=== PATIENT | female | born 1965 | race Caucasian/White ===

== ENCOUNTER 2022-08-29 09:49 | Outpatient (OUT) | payer OTHER, SELFPAY ==
--- NOTE | 2022-08-29 10:23 | XR_ITS ---
The [address] [address] Patient Name: MAHESH BAXTER MRN: [id number] date: 1965 Sex: F Assigned Patient Location: [facility] Current Patient Location: [facility] Accession/Order Number: [id number] Exam Date: 08/29/2022 10:26 Report Date: 08/29/2022 10:53 At the request of: NON-STAFF PHYSICIAN Procedure: XR chest 2V EXAM: XR chest 2V HISTORY: Productive cough R05.8 COMPARISON: None. TECHNIQUE: PA and lateral views of the chest. FINDINGS: The cardiomediastinal silhouette is normal. No focal consolidation is identified. There is no pneumothorax. No pleural effusion is noted. The osseous structures are intact. IMPRESSION: No acute cardiopulmonary process. Electronically authenticated by: FATOUMATA MURRAY Date: 08/29/2022 10:53
== END 2022-08-29 09:50 ==
LOC: RAD 09:53
DX: R05.8 Other specified cough (principal)
CPT/HCPCS: 71046

== ENCOUNTER 2023-04-20 14:02 | Outpatient (OUT) | payer OTHER, SELFPAY ==
--- NOTE | 2023-04-20 | XR_ITS ---
[address] [address] Patient Name: MAHESH BAXTER MRN: [id number] date: 1965 Sex: F Assigned Patient Location: [facility] Current Patient Location: [facility] Accession/Order Number: [id number] Exam Date: 04/20/2023 14:26 Report Date: 04/20/2023 15:04 At the request of: NICOLE MARIA Procedure: XR foot ALIVIA min 3V EXAMINATION: XR foot ALIVIA min 3V HISTORY: BILATERAL FOOT PAIN COMPARISON: 03/08/2022 left foot FINDINGS: RIGHT FINDINGS: BONES: No acute fracture or dislocation. Moderate enthesopathic spurring of the calcaneus most significant along the plantar insertion. SOFT TISSUES: Negative. No visible soft tissue swelling. OTHER: Negative. LEFT FINDINGS: BONES: No acute fracture or dislocation. Moderate hallux valgus. Moderate degenerative changes of the first metatarsal-phalangeal joint. Moderate enthesopathic spurring of the calcaneus most significant at the plantar insertion. Persistent flexion of the second toe with overlap of the first and second toes SOFT TISSUES: Negative. No visible soft tissue swelling. OTHER: Negative. XR/XR foot ALIVIA min 3V IMPRESSION: RIGHT CONCLUSION: Enthesopathic spurring of the calcaneus LEFT CONCLUSION: Moderate hallux valgus, first metatarsal-phalangeal joint osteoarthritis Electronically authenticated by: COLETTE HUNT Date: 04/20/2023 15:04
--- OUTSIDE RECORDS SUMMARY | 2023-04-20 14:10 | XMS_ITS | CCD ---
Author Name Unknown Address [address] [place] [address] Organization [facility] Care Team Providers Care Play Back Operator Name Role Phone Randall Kerr Primary Care Provider Jayesh Agrawal Attending Provider Randall Kerr Unavailable DO Randall Kerr Primary Care Provider DO Randall Kerr Attending Provider MD Johnny Vera Referring Provider [phone] DR MAINE KERR Primary Care Unavailable ANNA GREENBERG Admitting Unavailable ANNA GREENBERG Attending Unavailable DR COLETTE HUNT V Consulting Unavailable ANNA GREENBERG Consulting Unavailable Randall Kerr Admitting Unavailable Randall Kerr Attending Unavailable Ana, Randall Primary Care Unavailable Riccos, Randall Admitting Unavailable RiccosRandall Attending Unavailable Riccos, Randall Primary Care Unavailable Kuns, Randall Admitting Unavailable Randall Kerr Attending Unavailable Johnny Vera Referring Unavailable Riccos Randall Primary Care Unavailable RiccosRandall Attending Unavailable Riccos, Randall Primary Care Unavailable Kuns, Randall Admitting Unavailable KunsRandall Attending Unavailable Riccos, Randall Primary Care Unavailable Kuns, Randall Admitting Unavailable Jigna Sparks Unavailable Unavailable Unavailable Unavailable Allergies Allergy Classification Reported Allergen(s) Allergy Type Date of Onset Reaction(s) Facility (15 sources) Amitriptyline Drug Allergy GROGGY, Grogginess [facility] Other (15 sources) Penicillin Drug Allergy Unknown [facility] Other (1 source) Penicillin Drug Allergy 10-05-202 0 [facility] Repository Medications Current Medications Medication Drug Class(es) Dates Sig (Normalized) Sig (Original) azithromycin 250 mg oral tablet (7 sources) Macrolide Antimicrobial Start: 06-30-2022 Azithromycin 250 MG 2 tablet on the first day, then 1 tablet daily for 4 days Orally Once a day for 5 day(s) Jun, Active Start: 10-14-2021 Zithromax Z-Pa k 250 MG as directed Orally as directed Oct, Active benzonatate 100 mg oral capsule (6 sources) Non-narcotic Antitussive Start: 06-30-2022 take 1 capsule by mouth three times daily as needed Tessalon Perles 100 MG 1 capsule as needed Orally Three times a day for 7 days Jun, Active Estrogens, Esterified ([facility]) / methylTESTOSTERone (15 sources) Androgen Estratest 1.25-2.5 MG 1 tablet with food Orally Daily for Three Weeks, 1 Week off for 30 day(s) Active fluticasone propionate 0.05 mg/actuat metered dose nasal spray (15 sources) Corticosteroid take 1 spray(s) nasal route once daily Fluticasone Propionate 50 MCG/ACT 1 spray in each nostril Nasally Once a day Active 30 actuat fluticasone furoate 0.1 mg/actuat / umeclidinium 0.0625 mg/actuat / vilanterol 0.025 mg/actuat dry powder inhaler (1 source) Anticholinergic, Corticosteroid, beta2-Adrenergic Agonist Start: 08-30-2022 take 1 puff(s) by inhalation once daily Trelegy Ellipta 100-62.5-25 MCG/ACT 1 puff Inhalation Once a day samples Aug, Active Hair Nourishing Supplement - (9 sources) Hair Nourishing Supplement - as directed Orally Active ibuprofen 200 mg oral tablet (12 sources) Nonsteroidal Anti-inflammatory Drug take 1 tablet by mouth three times daily at mealtime as needed Ibuprofen 200 MG 1 tablet with food or milk as needed Orally Three times a day Active levoFLOXacin 500 mg oral tablet (6 sources) Quinolone Antimicrobial Start: 08-09-2022 take 1 tablet by mouth every twenty-four hours levoFLOXacin 500 MG 1 tablet Orally Once a day for 10 days July, Active Multivitamin preparation (15 sources) Multivitamin Orally Active phentermine hydrochloride 37.5 mg oral tablet (5 sources) Sympathomimetic Amine Anorectic Start: 01-13-2022 take 1 tablet by mouth every twenty-four hours Adipex-P 37.5 MG 1 tablet Orally Once a day Jan, Active Start: 12-15-2021 take 1 tablet by escobar th every twenty-four hours Adipex-P 37.5 MG 1 tablet Orally Once a day Dec, Active Start: 11-18-2021 take 1 tablet by escobar th every twenty-four hours Adipex-P 37.5 MG 1 tablet Orally Once a day Nov, Active 24 hr phentermine 11.25 mg / topiramate 69 mg extended release oral capsule (2 sources) Sympathomimetic Amine Anorectic Start: 02-23-2022 take 1 capsule by mouth every twenty-four hours Qsymia 11.25-69 MG 1 capsule Orally Once a day for 30 days Feb, Active predniSONE 20 mg oral tablet (7 sources) Start: 06-30-2022 take 1 tablet by mouth every twelve hours prednisone 20 MG 1 tablet Orally BID for 5 days Jun, Active Start: 10-14-2021 predniSONE 20 MG 1 tablet Orally TID for 3 days, BID for 3 days, then QD for 3 days Oct, Active turmeric extract 500 mg oral capsule (1 source) Turmeric 500 MG as directed Orally Active Completed/Discontinued Medications Medication Drug Class(es) Dates Sig (Normalized) Sig (Original) triamcinolone acetonide 40 mg/ml injectable suspension (19 sources) Corticosteroid Start: 2021 Kenalog-40 Aug, 60 mg Problems Active Problems Problem Classification Problem Date Documented Date Episodic/Chronic Administrative/social admission (4 sources) Dietary management surveillance; Translations: [Dietary counseling and surveillance] Episodic Coronary atherosclerosis and other heart disease (1 source) Coronary atherosclerosis and other heart disease; Translations: [E78.5 - Hyperlipidemia, unspecified] Onset: 2 Disorders of lipid metabolism (17 sources) Hyperlipidemia; Translations: [Hyperlipidemia, unspecified] Onset: 2 Resolved: 2 Chronic E Codes: Overexertion (1 source) Slipping, tripping and stumbling without falling, unspecified, initial encounter; Translations: [SLIP TRIP STUMBL NO FALL UNS INIT] Onset: 2 Episodic Esophageal disorders (20 sources) Gastroesophageal reflux disease; Translations: [Gastro-esophageal reflux disease without esophagitis] Onset: 2 Resolved: 2 Chronic Esophageal disorders (1 source) Esophageal disorders; Translations: [Gastro-esophageal reflux disease without esophagitis] Onset: 2 Fracture of lower limb (1 source) Unspecified fracture of left calcaneus, initial encounter for closed fracture; Translations: [UNS FX LT CALCAN INITIAL CLOSED FX] Onset: 2 Episodic Genitourinary congenital anomalies (13 sources) Cyst of kidney; 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, unspecified] Onset: 2 Resolved: 2 Chronic Headache; including migraine (13 sources) Cluster headache; Translations: [Cluster headache syndrome, unspecified, not intractable] Onset: 2 Resolved: 2 Chronic Immunizations and screening for infectious disease (1 source) Contact with and (suspected) exposure to other viral communicable diseases Episodic Osteoarthritis (20 sources) Degenerative joint disease of thumb; Translations: [Primary osteoarthritis, unspecified hand] Chronic Other connective tissue disease (3 sources) Pain in left foot; Translations: [PAIN IN LEFT FOOT] Onset: 2 Episodic Other diseases of kidney and ureters (4 sources) Impaired renal function disorder; Translations: [Disorder of kidney and ureter, unspecified] Episodic Other hematologic conditions (4 sources) Relative polycythemia; 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] Episodic Other liver diseases (12 sources) Liver cyst; Translations: [Other specified diseases of liver] Chronic Other liver diseases (1 source) Other specified diseases of liver Onset: 2 Resolved: 2 Chronic Other lower respiratory disease (1 source) Persistent cough; Translations: [Persistent cough] Episodic Other non-traumatic joint disorders (4 sources) Arthralgia of the upper arm; Translations: [Pain in left elbow] Episodic Other nutritional; endocrine; and metabolic disorders (15 sources) Obesity; Translations: [Obesity, unspecified] Chronic Other nutritional; endocrine; and metabolic disorders (4 sources) Body mass index 30+ - obesity; Translations: [Body mass index (BMI) 30.0-30.9, adult] Chronic Other nutritional; endocrine; and metabolic disorders (1 source) Body mass index (BMI) 30.0-30.9, adult Onset: 2 Resolved: 2 Chronic Other nutritional; endocrine; and metabolic disorders (4 sources) Obesity, unspecified Onset: 2 Resolved: 2 Chronic Other nutritional; endocrine; and metabolic disorders (11 sources) Overweight in adulthood with body mass index of 25 or more but less than 30; Translations: [Body mass index (BMI) 28.0-28.9, adult] Episodic Other nutritional; endocrine; and metabolic disorders (1 source) Body mass index (BMI) 28.0-28.9, adult Episodic Other nutritional; endocrine; and metabolic disorders (1 source) Body mass index (BMI) 27.0-27.9, adult Episodic Other screening for suspected conditions (not mental disorders or infectious disease) (20 sources) Electrocardiogram abnormal; Translations: [Abnormal electrocardiogram [ECG] [EKG]] Onset: 2 Resolved: 2 Episodic Other upper respiratory disease (4 sources) Seasonal allergy; Translations: [Other seasonal allergic rhinitis] Chronic Other upper respiratory disease (2 sources) Other seasonal allergic rhinitis Chronic Other upper respiratory infections (1 source) Acute maxillary sinusitis, unspecified Episodic Unclassified (1 source) R06.02 - Shortness of breath; Translations: [R06.02 - Shortness of breath] Onset: 2 Unclassified (1 source) R05.3 - Chronic cough; Translations: [R05.3 - Chronic cough] Onset: 2 Unclassified (1 source) R05.3 - Chronic cough; Translations: [R05.3 - Chronic cough] Onset: 2 Past or Other Problems Problem Classification Problem Date Documented Da te Episodic/Chronic Cardiac dysrhythmias (3 sources) Palpitations; Translations: [Palpitations] Onset: 09-23-2021 Resolved: 11-18-2021 Episodic Nonspecific chest pain (4 sources) Other chest pain; Translations: [Chest pain, unspecified] Onset: 06-27-2022 Resolved: 09-23-2021 Episodic Other lower respiratory disease (3 sources) Shortness of breath; Translations: [Shortness of breath] Onset: 08-02-2021 Resolved: 09-23-2021 Episodic Other lower respiratory disease (1 source) Chronic cough; Translations: [Chronic cough] Onset: 10-25-2021 Episodic Unclassified (2 sources) Persistent cough R05.3 Onset: 09-23-2021 Resolved: 09-23-2021 Unclassified (1 source) History of COVID-19 Z86.16 Onset: 11-18-2021 Resolved: 11-18-2021 Unclassified (1 source) Acute cough R05.1 Unclassified (1 source) Cough R05.9 Unclassified (1 source) Productive cough R05.8 Results Test Name Value Interpretation Reference Range Facility COVID + FLU Quick Testingon 08-09-2022 SARS-CoV-2 (COVID-19) RNA DORIAN+probe Ql (Unsp spec) Negative [facility] Other COVID + FLU Quick Testing Negative [facility] Other RSVon 08-09-2022 RSV Ag IA Ql (Unsp spec) Negative [facility] Other COVID + FLU Quick Testingon 06-30-2022 SARS-CoV-2 (COVID-19) RNA DORIAN+probe Ql (Unsp spec) Negative [facility] Other COVID + FLU Quick Testing Negative [facility] Other FL upper GI w air*on 022 FL upper GI w air* [place] [address] Fluoroscopy Report Signed Patient: Mahesh Baxter I MR#: [id number] 847 : 1965 Acct:[id number] Age/Sex: 56 / F ADM Date: 10/25/21 Loc: XD Room: Type: [facility] Attending Dr: Randall Kerr DO Copies to: Randall Kerr DO Ordering Provider: Randall Kerr DO Date of Service: 10/25/21 FL/FL upper GI w air*: Persistent cough;Chest discomfort;Gastro- esophageal reflux d UPPER GI SERIES WITH ESOPHAGRAM HISTORY: Persistent cough. Gastroesophageal reflux. FINDINGS: The valleculae and perform sinuses are symmetrical. The esophagus has normal course and caliber without fixed intraluminal filling defect or mucosal identified. No hiatal hernia seen. No reflux of contrast into the esophagus. No aspiration of contrast seen. No gastric mass or ulceration. The duodenal bulb and sweep are unremarkable. No significant stasis of esophageal contrast. No esophageal dysmotility identified. FL/FL upper GI w air* IMPRESSION: NO GASTROESOPHAGEAL REFLUX. NO ESOPHAGITIS. THERE IS NO MASS OR ULCERATION STOMACH OR DUODENUM. Impression dictated by: Cam Lucia M.D.10/25/2021 12:06 PM Dictation Location: [place] [address] Transcribed By: ANA 10/25/21 1206 Dictated By: Cam Lucia DO 10/25/21 1201 Signed By: 10/25/21 1206 Normal [facility] CA holter monitor recordingo n 10-08-2021 CA holter monitor recording [place] [address] Holter Monitor Report Signed Patient: Mahesh Baxter I MR#: [id number] 847 : 1965 Acct:[id number] Age/Sex: 56 / F ADM Date: 10/06/21 Loc: Room: Type: [facility] Attending Dr: Randall Kerr DO Copies to: DO Johnny Alonso MD, [facility] Ordering Provider: Randall Kerr DO Date of Service: 10/06/21 CA/CA holter monitor recording: SOB (shortness of breath);Chest discomfort;Heart palpitation ORDERED BY: Randall Kerr DO INDICATION: A 56-year-old patient with palpitations. 1. The rhythm is sinus throughout. Average heart rate 82 beats per minute. Mild sinus arrhythmia is noted, which is physiological. 2. Minimum heart rate was 53 beats per minute, sinus bradycardia at 4:39 p.m. and maximum heart rate was 121 beats per minute, sinus tachycardia at 1:31 p.m. 3. Eight isolated PVCs were noted, none were symptomatic. 4. Rare isolated premature atrial complexes were seen. The total reported number was 16 beats. There were no symptoms associated with them. 5. No pauses exceeding 2 seconds were seen. 6. The patient's diary had multiple entries for symptoms of chest pain and chest fluttering, which did not correlate with any cardiac arrhythmias. CONCLUSION: A 24-hour Holter monitor that is unremarkable. Sinus rhythm mechanism is noted throughout. Average heart rate 82 beats per minute. Rare premature atrial complexes and rare pre mature ventricular complexes were noted and were not symptomatic. No pauses exceeding 2 seconds were seen. The patient's multiple symptoms of chest fluttering and chest pain did not correlate with cardiac arrhythmias. No previous studies are available for comparison. Transcribed By: NTS 10/08/21 1523 Dictated By: Johnny Vera MD, [facility] 10/08/21 1512 Signed By: 10/11/21 0904 [facility] echo transthoracicon [facility] echo transthoracic [place] [address] Echocardiogram Signed Patient: Mahesh Baxter I MR#: [id number] 847 : 1965 Acct:[id number] Age/Sex: 56 / F ADM Date: 10/06/21 Loc: Room: Type: [facility] Attending Dr: Randall Kerr DO Ordering Provider: Randall Kerr DO Date of Service: 10/06/21 [facility] echo transthoracic: SOB (shortness of breath);Chest discomfort;Heart palpitation Copies to: DO Young Alonso MD BSA: 1.8 m2 BP: 112/68 mmHg HR: 70 Reason For Study: SOB (shortness of breath);Chest discomfort;Heart palpitation History: No cardiac history per patient Interpretation Summary Mild concentric left ventricular hypertrophy. Ejection Fraction = 55-60%. A variety of Doppler measurements indicate normal left ventricular diastolic function. There is trace tricuspid regurgitation. Procedure/Quality: A two-dimensional transthoracic echocardiogram with color flow and Doppler was performed. The study was technically good in quality. Left Ventricle: The left ventricular size is normal. Mild concentric left ventricular hypertrophy. Ejection Fraction = 55-60%. A variety of Doppler measurements indicate normal left ventricular diastolic function. No left ventricular thrombus or mass is seen. Left Atrium: The left atrium appears normal in size. The atrial septum appears normal. Right Atrium: The right atrium appears normal in size. Right Ventricle: The right ventricular size, thickness and function are normal. Aortic Valve: The aortic valve is normal in structure and function. Mitral Valve: The mitral valve is normal. Tricuspid Valve: The tricuspid valve is normal. There is trace tricuspid regurgitation. Pulmonic Valve: The pulmonic valve is not well visualized. Arteries: The aortic root is normal size. The aortic arch was visualized and no abnormalities were seen. Pericardium/Pleura: No pericardial effusion seen. There is no pleural effusion. IVC/Hepatic Viens: The inferior vena cava is normal in size, with a normal collapsibility index. Measurements with Normals IVSd: 1.1 cm (0.7-1.1 cm)LVIDd: 4.5 cm (3.7-5.4 cm) LVPWd: 1.2 cm (0.7-1.1 cm)LVIDs: 2.9 cm (2.3-3.6 cm) LA dimension: 4.2 cm (2.3-4.0 cm)Ao root diam: 2.9 cm(2.0-3.6 cm) asc Aorta Diam: 3.3 cm(2.1-3.4cm) Doppler with Normals RVSP(TR): 12.6 mmHg (18-35mmHg) LV V1 max: 87.1 cm/sec (0.7-1.7m/s)MV E max lena: 64.3 cm/sec(0.8-1.3m/s) MV A max lena: 69.4 cm/sec(0.0-0.0m/s) MV E/A: 0.93 (<1.5) MMode/2D Measurements Calculations RVDd: 3.3 cm FS: 37.0 % Ao root area: LVOT diam: 2.1 cm TAPSE: 2.3 cm EDV(Teich): 6.8 cm2 LVOT area: 3.6 cm2 RV S Lena: 94.2 ml 11.9 cm/sec ESV(Teich): 31.0 ml EF(Teich): 67.1 % __ LVLd ap4: 8.6 cm SV(MOD-sp4): LAV(MOD-sp4): LA A2 area: 13.3 cm2 EDV(MOD-sp4): 40.0 ml 35.4 ml 72.0 ml LAV(MOD-sp2): LA A4 area: 14.6 cm2 LVLs ap4: 7.3 cm 28.3 ml LA length (vol): ESV(MOD-sp4): 5.0 cm 32.0 ml LA vol: 32.9 ml EF(MOD-sp4): 55.6 % LA vol index: 18.2 ml/m2 Doppler Measurements Calculations MV dec time: MV max PG: E/E' lat: 8.7 MV dec slope: 0.23 sec 40.0 mmHg E/E' med: 10.0 293.6 cm/sec2 __ Ao V2 max: LV V1 max PG: MR max lena: TV max P.0 mmHg 116.2 cm/sec 3.0 mmHg 315.8 cm/sec Ao max P.4 mmHgLV V1 mean PG: MR max PG: Ao mean P.9 mmHg 40.4 mmHg 2.8 mmHg LV V1 mean: Ao V2 mean: 66.2 cm/sec 78.2 cm/sec LV V1 VTI: 16.3 cm Ao V2 VTI: 21.2 cm LM(I,D): 2.8 cm2 ML(V,D): 2.7 cm2 __ TR max lena: 155.1 cm/sec TR max P.6 mmHg RAP systole: 3.0 mmHg Transcribed By: SCV Performed At: 10/06/21 0807 Signed By: Young Mckenna MD 10/06/21 1058 [facility] US gall bladderon 10-06-2021 gall bladder [facility] [address] [place], [place] [id number] Ultrasound Report Signed Patient: Mahesh Baxter I MR#: [id number] 847 : 1965 Acct:[id number] Age/Sex: 56 / F ADM Date: 10/06/21 Loc: Room: Type: [facility] Attending Dr: Randall Kerr DO Ordering Provider: Randall Kerr DO Date of Service: 10/06/21 US/US gall bladder: Persistent cough;Chest discomfort;Gastro-es ophageal reflux d Copies to: Randall Krer DO The gallbladder ultrasound HISTORY: Chest discomfort. Gastroesophageal reflux. COMPARISON:None Negative ultrasound Sherwood's sign reported. Common duct measures 3mm. Normal echogenicity of the liver parenchyma identified. LEFT hepatic anechoic cyst that measures up to 9 mm. No intrahepatic biliary ductal dilatation identified. No gallstones or gallbladder sludge identified. No gallbladder wall thickening is seen. No pericholecystic fluid is identified. No pancreatic mass, ductal dilatation or peripancreatic abnormalities seen. Normal blood flow of the main portal vein is identified. The liver has a length of13.2 cm. There is a anechoic cyst in the RIGHT kidney measuring up to 18 mm. No RIGHT hydronephrosis identified. US/US gall bladder IMPRESSION: Unremarkable gallbladder. No biliary duct dilatation. Small hepatic cyst. Impression dictated by: Cam Lucia M.D.10/06/2021 8:47 AM Dictation Location: [place] [address] Tech: Becca Rajan Transcribed By: ANA 10/06/21 0847 Dictated By: Cam Lucia DO 10/06/21 0843 Signed By: 10/06/21 0847 [facility] Urine 10 SGon 09-23-2021 Albumin DL <= 20 mg/L (U) [Mass/Vol] Negative [facility] Other pH (U) 6.0 [pH] [facility] Other Urine 10 SG Negative [facility] Other Urine 10 SG 1.015 [facility] Other Urine 10 SG trace-intact [facility] [place] Other Urine 10 SG 0.2 [facility] Other NM caitlin perf SPECT rest stron 09-06-2021 NM caitlin perf SPECT rest str [facility] [address] [address] Nuclear Medicine Report Signed Patient: Mahesh Baxter I MR#: [id number] 847 : 1965 Acct:[id number] Age/Sex: 56 / F ADM Date: 09/06/21 Loc: NM Room: Type: [facility] Attending Dr: Randall Kerr DO Copies to: DO Johnny Alonso MD, [facility] Ordering Provider: Randall Kerr DO Date of Service: 09/06/21 NM/NM caitlin perf SPECT rest str: R07.89, R06.02, R07.9 ORDERED BY: Randall Kerr DO INDICATION: A 56-year-old with chest pain. Resting images were obtained after intravenous administration of 6.5 mCi of Cardiolite given on 09/06/2021, and stress images were obtained after intravenous administration of 18.2 mCi of Cardiolite given at peak exercise on 09/06/2021. Subsequently, gated SPECT MPI was obtained. TOMOGRAPHIC DATA: The study is normal and reveals homogeneous tracer uptake. Left ventricular volume and wall motions are normal. Ejection fraction measured 60% with normal TID at 0.94. CONCLUSION: 1. Normal exercise Cardiolite SPECT MPI. 2. No tomographic evidence of ischemia or prior myocardial infarction. 3. Normal left ventricular volume and wall motion, ejection fraction 60% with normal TID at 0.94. No previous studies are available for comparison. Transcribed By: NTS 09/06/21 1241 Dictated By: Johnny Vera MD, [facility] 09/06/21 1227 Signed By: 09/07/21 0936 Normal [facility] STR cardiac stress/cardiolon 09-06-2021 STR cardiac stress/cardiol [facility] [address] [address] Cardiac Stress Test Signed Patient: Mahesh Baxter I MR#: [id number] 847 : 1965 Acct:[id number] Age/Sex: 56 / F ADM Date: 09/06/21 Loc: NM Room: Type: [facility] CLI Attending Dr: Randall Kerr DO Copies to: DO Johnny Alonso MD, [facility] Ordering Provider: Randall Kerr DO Date of Service: 09/06/21 STR/STR cardiac stress/cardiol: Chest discomfort;SOB (shortness of breath);Exertional chest ORDERED BY: Randall Kerr DO A 56-year-old patient with dyspnea on exertion. Resting EKG revealed sinus rhythm, heart rate 73 beats per minute. Resting blood pressure 114/74 mmHg. The patient was exercised on a Altaf protocol for 6 minutes and 34 seconds, achieving a maximum heart rate of 146 beats per minute, which represented 90% of predicted maximum heart rate and workload of 7.8 METs. Blood pressure alejandra to 190/92 mmHg. The test ended due to leg fatigue. During exercise, there were nonspecific ST segment abnormalities noted. The patient reported symptoms of chest heaviness 1 minute into the recovery phase, which resolved spontaneously soon afterwards. Cardiolite study followed. CONCLUSION: 1. No exercise-induced significant ST segment abnormalities to suggest ischemia. 2. No cardiac arrhythmias induced by exercise. 3. Symptoms of chest heaviness at peak exercise resolved spontaneously shortly after. 4. Cardiolite studies to be reported separately by nuclear cardiology. Transcribed By: NTS 09/06/21 1331 Dictated By: Johnny Vera MD, [facility] 09/06/21 1217 Signed By: 09/07/21 0936 Normal [facility] XR chest 2V*on 08-02-2021 XR chest 2V* [place] [address] XRay Report Signed Patient: Mahesh Baxter I MR#: [id number] 847 : 1965 Acct:[id number] Age/Sex: 56 / F ADM Date: 08/02/21 Loc: XD Room: Type: [facility] CLI Attending Dr: Randall Kerr DO Ordering Provider: Randall Kerr DO Date of Service: 08/02/21 XR/XR chest 2V*: Chest discomfort;Persisten t cough;SOB (shortness of breath) Copies to: Randall Kerr, PA AND LATERAL CHEST: CLINICAL HISTORY: Abnormal EKG, chest discomfort, persistent cough and shortness of breath for one year. COMPARISON: None FINDINGS: Heart is normal in size. Lungs are clear. No free air. Osseous structures demonstrate degenerative change. XR/XR chest 2V* IMPRESSION: NO ACUTE CARDIOPULMONARY ABNORMALITY. Impression dictated by: Cole Peres Jr., D.ORoman08/02/2021 2:44 PM Dictation Location: [facility]-- Transcribed By: [facility] 08/02/21 144 Dictated By: Cole Peres Jr, DO 08/02/21 144 Signed By: 08/02/21 144 Normal [facility] Complete Blood Count Auto Di ffon 2021 Basophils (Bld) [#/Vol] 0.0 10*3/uL Normal 0.0-0.2 [facility] Comment on above: Order Comment: Reaso n for Exam Chest discomfort;GERD (gastroesophageal reflux disease);Pers Result Comment: PERF ORMED BY: [place] [address] PATHOLOGIST [employer] JOEY GUIDO M.D. Performed By: #### C BC, CMP, LIPID, TSH3 #### [address] Basophils/100 WBC (Bld) 0.6 % Normal . [facility] Comment on above: Order Comment: Reaso n for Exam Chest discomfort;GERD (gastroesophageal reflux disease);Pers Performed By: #### C BC, CMP, LIPID, TSH3 #### [address] Eosinophils (Bld) [#/Vol] 0.1 10*3/uL Normal 0.0-0.45 [facility] Comment on above: Order Comment: Reaso n for Exam Chest discomfort;GERD (gastroesophageal reflux disease);Pers Performed By: #### C BC, CMP, LIPID, TSH3 #### [address] Eosinophils/100 WBC (Bld) 2.5 % Normal . [facility] Comment on above: Order Comment: Reaso n for Exam Chest discomfort;GERD (gastroesophageal reflux disease);Pers Performed By: #### C BC, CMP, LIPID, TSH3 #### [address] Erythrocyte distribution width (RBC) [Ratio] 13.6 % Normal 11.9-15.3 [facility] Comment on above: Order Comment: Reaso n for Exam Chest discomfort;GERD (gastroesophageal reflux disease);Pers Performed By: #### C BC, CMP, LIPID, TSH3 #### [address] Hematocrit (Bld) [Volume fraction] 45.1 % Normal 34.0-46.4 [facility] Comment on above: Order Comment: Reaso n for Exam Chest discomfort;GERD (gastroesophageal reflux disease);Pers Performed By: #### C BC, CMP, LIPID, TSH3 #### [address] Hemoglobin (Bld) [Mass/Vol] 15.3 g/dL Normal 11.8-15.4 [facility] Comment on above: Order Comment: Reaso n for Exam Chest discomfort;GERD (gastroesophageal reflux disease);Pers Performed By: #### C BC, CMP, LIPID, TSH3 #### [address] Lymphocytes (Bld) [#/Vol] 1.7 10*3/uL Normal 1.00-4.8 [facility] Comment on above: Order Comment: Reaso n for Exam Chest discomfort;GERD (gastroesophageal reflux disease);Pers Performed By: #### C BC, CMP, LIPID, TSH3 #### [address] Lymphocytes/100 WBC (Bld) 35.6 % Normal . [facility] Comment on above: Order Comment: Reaso n for Exam Chest discomfort;GERD (gastroesophageal reflux disease);Pers Performed By: #### C BC, CMP, LIPID, TSH3 #### [address] MCH (RBC) [Entitic mass] 31.2 pg Normal 24.7-34.3 [facility] Comment on above: Order Comment: Reaso n for Exam Chest discomfort;GERD (gastroesophageal reflux disease);Pers Performed By: #### C BC, CMP, LIPID, TSH3 #### [address] MCV (RBC) [Entitic vol] 92.0 fL Normal 80-100 [facility] Comment on above: Order Comment: Reaso n for Exam Chest discomfort;GERD (gastroesophageal reflux disease);Pers Performed By: #### C BC, CMP, LIPID, TSH3 #### [address] Mean Corpuscular HGB Conc 34.0 g/dL Normal 32.0-35.0 [facility] Comment on above: Order Comment: Reaso n for Exam Chest discomfort;GERD (gastroesophageal reflux disease);Pers Performed By: #### C BC, CMP, LIPID, TSH3 #### [address] Monocytes (Bld) [#/Vol] 0.3 10*3/uL Normal 0.0-0.8 [facility] Comment on above: Order Comment: Reaso n for Exam Chest discomfort;GERD (gastroesophageal reflux disease);Pers Performed By: #### C BC, CMP, LIPID, TSH3 #### [address] Monocytes/100 WBC (Bld) 7.5 % Normal . [facility] Comment on above: Order Comment: Reaso n for Exam Chest discomfort;GERD (gastroesophageal reflux disease);Pers Performed By: #### C BC, CMP, LIPID, TSH3 #### [address] Neutrophils (Bld) [#/Vol] 2.5 10*3/uL Normal 1.8-7.7 [facility] Comment on above: Order Comment: Reaso n for Exam Chest discomfort;GERD (gastroesophageal reflux disease);Pers Performed By: #### C BC, CMP, LIPID, TSH3 #### [address] Neutrophils/100 WBC (Bld) 53.8 % Normal . [facility] Comment on above: Order Comment: Reaso n for Exam Chest discomfort;GERD (gastroesophageal reflux disease);Pers Performed By: #### C BC, CMP, LIPID, TSH3 #### [address] Nucleated RBC/100 WBC (Bld) [Ratio] 0.1 % Normal 0-0.5 [facility] Comment on above: Order Comment: Reaso n for Exam Chest discomfort;GERD (gastroesophageal reflux disease);Pers Performed By: #### C BC, CMP, LIPID, TSH3 #### [address] Platelet mean volume (Bld) [Entitic vol] 9.4 fL Normal 6.3-10.7 [facility] Comment on above: Order Comment: Reaso n for Exam Chest discomfort;GERD (gastroesophageal reflux disease);Pers Performed By: #### C BC, CMP, LIPID, TSH3 #### [place] [address] [place] Platelets (Bld) [#/Vol] 215 10*3/uL Normal 150-450 [facility] Comment on above: Order Comment: Reaso n for Exam Chest discomfort;GERD (gastroesophageal reflux disease);Pers Performed By: #### C BC, CMP, LIPID, TSH3 #### [address] RBC (Bld) [#/Vol] 4.90 10*6/uL Normal 3.60-5.00 [facility] Comment on above: Order Comment: Reaso n for Exam Chest discomfort;GERD (gastroesophageal reflux disease);Pers Performed By: #### C BC, CMP, LIPID, TSH3 #### [address] WBC (Bld) [#/Vol] 4.6 10*3/uL Normal 4.5-11.0 [facility] Comment on above: Order Comment: Reaso n for Exam Chest discomfort;GERD (gastroesophageal reflux disease);Pers Performed By: #### C BC, CMP, LIPID, TSH3 #### [facility] [address] Comprehensive Metabolic Pane james 2021 Albumin [Mass/Vol] 4.2 g/dL Normal 3.2-5.5 [facility] Comment on above: Order Comment: Reaso n for Exam Chest discomfort;GERD (gastroesophageal reflux disease);Pers Performed By: #### C BC, CMP, LIPID, TSH3 #### [facility] [address] Albumin/Globulin [Mass ratio] 1.4 {ratio} Normal [facility] Comment on above: Order Comment: Reaso n for Exam Chest discomfort;GERD (gastroesophageal reflux disease);Pers Performed By: #### C BC, CMP, LIPID, TSH3 #### [facility] [address] ALP [Catalytic activity/Vol] 82 U/L Normal 32-92 [facility] Comment on above: Order Comment: Reaso n for Exam Chest discomfort;GERD (gastroesophageal reflux disease);Pers Performed By: #### C BC, CMP, LIPID, TSH3 #### [facility] [address] [place] [id number] [facility] ALT [Catalytic activity/Vol] 24 U/L Normal 10-60 [facility] Comment on above: Order Comment: Reaso n for Exam Chest discomfort;GERD (gastroesophageal reflux disease);Pers Performed By: #### C BC, CMP, LIPID, TSH3 #### [facility] [address] [place] [id number] [place] AST [Catalytic activity/Vol] 23 U/L Normal 10-42 [facility] Comment on above: Order Comment: Reaso n for Exam Chest discomfort;GERD (gastroesophageal reflux disease);Pers Performed By: #### C BC, CMP, LIPID, TSH3 #### [facility] [address] Bilirubin [Mass/Vol] 0.7 mg/dL Normal 0.3-1.2 [place] Comment on above: Order Comment: Reaso n for Exam Chest discomfort;GERD (gastroesophageal reflux disease);Pers Performed By: #### C BC, CMP, LIPID, TSH3 #### [facility] [address] Calcium [Mass/Vol] 9.6 mg/dL Normal 8.2-10.2 [facility] Comment on above: Order Comment: Reaso n for Exam Chest discomfort;GERD (gastroesophageal reflux disease);Pers Performed By: #### C BC, CMP, LIPID, TSH3 #### [facility] [address] Chloride [Moles/Vol] 103 mmol/L Normal 95-114 [place] Comment on above: Order Comment: Reaso n for Exam Chest discomfort;GERD (gastroesophageal reflux disease);Pers Performed By: #### C BC, CMP, LIPID, TSH3 #### [facility] [address] CO2 [Moles/Vol] 23.9 mmol/L Normal 22.0-30.0 [facility] Comment on above: Order Comment: Reaso n for Exam Chest discomfort;GERD (gastroesophageal reflux disease);Pers Performed By: #### C BC, CMP, LIPID, TSH3 #### [address] Creatinine [Mass/Vol] 0.85 mg/dL Normal 0.44-1.03 [facility] Comment on above: Order Comment: Reaso n for Exam Chest discomfort;GERD (gastroesophageal reflux disease);Pers Performed By: #### C BC, CMP, LIPID, TSH3 #### [facility] [address] Estimated GFR ( Hailey > 60 Normal [facility] Comment on above: Order Comment: Reaso n for Exam Chest discomfort;GERD (gastroesophageal reflux disease);Pers Result Comment: GFR estimated reference range: According to KDOQI guidelines, <60 ml/min/1.73m2 is sufficient to diagnose a patient with chronic kidney disease. Performed By: #### C BC, CMP, LIPID, TSH3 #### [facility] [address] Estimated GFR (Non- Am > 60 Normal [facility] Comment on above: Order Comment: Reaso n for Exam Chest discomfort;GERD (gastroesophageal reflux disease);Pers Performed By: #### C BC, CMP, LIPID, TSH3 #### [facility] [address] Globulin (S) [Mass/Vol] 2.9 g/dL Normal [facility] Comment on above: Order Comment: Reaso n for Exam Chest discomfort;GERD (gastroesophageal reflux disease);Pers Performed By: #### C BC, CMP, LIPID, TSH3 #### [address] Glucose [Mass/Vol] 86 mg/dL Normal 70-100 [facility] Comment on above: Order Comment: Reaso n for Exam Chest discomfort;GERD (gastroesophageal reflux disease);Pers Result Comment: [facility] Glucose Reference Range is dependent on time and content of last meal. Glucose of more than 200 mg/dL in a nonstressed, ambulatory subject supports the diagnosis of Diabetes Mellitus. ADA recommended reference range Performed By: #### C BC, CMP, LIPID, TSH3 #### [address] Potassium [Moles/Vol] 4.1 mmol/L Normal 3.5-5.1 [facility] Comment on above: Order Comment: Reaso n for Exam Chest discomfort;GERD (gastroesophageal reflux disease);Pers Performed By: #### C BC, CMP, LIPID, TSH3 #### [facility] [address] Protein [Mass/Vol] 7.1 g/dL Normal 6.1-7.9 [facility] Comment on above: Order Comment: Reaso n for Exam Chest discomfort;GERD (gastroesophageal reflux disease);Pers Performed By: #### C BC, CMP, LIPID, TSH3 #### [address] Sodium [Moles/Vol] 138 mmol/L Normal 136-146 [facility] Comment on above: Order Comment: Reaso n for Exam Chest discomfort;GERD (gastroesophageal reflux disease);Pers Performed By: #### C BC, CMP, LIPID, TSH3 #### [facility] [address] Urea nitrogen [Mass/Vol] 21 mg/dL Normal 9-23 [facility] Comment on above: Order Comment: Reaso n for Exam Chest discomfort;GERD (gastroesophageal reflux disease);Pers Performed By: #### C BC, CMP, LIPID, TSH3 #### [address] Lipid Panelon 2021 Cholesterol [Mass/Vol] 237 mg/dL High 140-200 [facility] Comment on above: Order Comment: Reaso n for Exam Chest discomfort;GERD (gastroesophageal reflux disease);Pers Result Comment: Chol less than 200 mg/dl low risk Chol 201-239 mg/dl borderline risk Chol 240 mg/dl and greater high risk Performed By: #### C BC, CMP, LIPID, TSH3 #### [address] Cholesterol in HDL [Mass/Vol] 80 mg/dL Normal 35-85 [facility] Comment on above: Order Comment: Reaso n for Exam Chest discomfort;GERD (gastroesophageal reflux disease);Pers Result Comment: HDL CHOL ATP-III CLASSIFICATION Cardiovascular Risk HDL > or equal to 60 mg/dL LOW HDL < 40 mg/dL HIGH Performed By: #### C BC, CMP, LIPID, TSH3 #### [address] Cholesterol.total/Ch olesterol in HDL [Mass ratio] 3.0 {ratio} Normal <5.0 [facility] Comment on above: Order Comment: Reaso n for Exam Chest discomfort;GERD (gastroesophageal reflux disease);Pers Performed By: #### C BC, CMP, LIPID, TSH3 #### [address] LDL Cholesterol,Calculat ed 144 mg/dL High 0-100 [facility] Comment on above: Order Comment: Reaso n for Exam Chest discomfort;GERD (gastroesophageal reflux disease);Pers Result Comment: LDL ATP III CLASSIFICATION LDL less than 100 mg/dL Optimal LDL 100-129 mg/dL Near or above optimal LDL 130-159 mg/dL Borderline high LDL 160-189 mg/dL High LDL greater than 189 mg/dL Very high Performed By: #### C BC, CMP, LIPID, TSH3 #### [address] Triglyceride w/Reflex 67 mg/dL Normal 35-149 [facility] Comment on above: Order Comment: Reaso n for Exam Chest discomfort;GERD (gastroesophageal reflux disease);Pers Result Comment: TRIG ATP III CLASSIFICATION TRIG less than 150 mg/dL Normal TRIG 150-199 mg/dL Borderline high TRIG 200-500 mg/dL High TRIG greater than 500 mg/dL Very high Standard traceable to the Center for Disease Conrtrol and Prevention (CDC) test method. Performed By: #### C BC, CMP, LIPID, TSH3 #### [address] VLDL CHOLESTEROL 13 mg/dL Normal [facility] Comment on above: Order Comment: Reaso n for Exam Chest discomfort;GERD (gastroesophageal reflux disease);Pers Performed By: #### C BC, CMP, LIPID, TSH3 #### [address] Thyroid Stimulating Hormoneo n 2021 TSH Qn 0.93 m[IU]/L Normal 0.45-5.33 [facility] Comment on above: Order Comment: Reaso n for Exam Chest discomfort;GERD (gastroesophageal reflux disease);Pers Result Comment: PERF ORMED BY: [place] [address] PATHOLOGIST [employer] JOEY GUIDO M.D. Performed By: #### C BC, CMP, LIPID, TSH3 #### [address] SCREENING MAMMOGRAM W/TIFFANI, BILATERAL*on 03-31-2021 SCREENING MAMMOGRAM W/TIFFANI, BILATERAL* CLINICAL HISTORY: Screening Mammogram COMPARISON: Priors from 2019, 2018, 2017, 2015 TECHNIQUE: 2D and 3D mammogram imaging of both breasts was performed. RESULT: DENSITY: Heterogeneously dense, which may obscure small masses. There is no suspicious mass, asymmetry, architectural distortion, or calcification. No significant change since the prior mammograms. IMPRESSION: BIRADS 1 : NEGATIVE, NORMAL INTERVAL FOLLOW UP FOLLOW UP: 12 months DENSITY: Heterogeneously dense MAMMOGRAPHY IS VERY IMPORTANT TO YOUR HEALTH. THE CURRENT CITIZEN OF THE [place] [employer] GUIDELINES RECOMMENDS ANNUAL MAMMOGRAPHY BEGINNING AT AGE 38 THIS FACILITY USES A REMINDER SYSTEM TO ENSURE ALL PATIENTS RECEIVE REMINDER NOTIFICATIONS AT THE APPROPRIATE TIME BASED ON THE RECOMMENDATIONS OF THIS EXAM. Board Certified Radiologist. Accredited by the ACR and FDA. Report reported and signed by Jaren Aldridge on 03/31/2021 1109 Normal [facility] Salesperson [employer] CNOVon 02-23-2021 CNOV Office Visit (ORAVON) MAHESH BAXTER I ([id number]) 1965 F Date Time Provider Department 02/23/21 8:00 AM DINA ROGER During your visit today, we recorded the following information about you: Weight Height 74.8 kg 1.575 m Dina Roger MD 02/23/2021 8:06 AM Signed RETURN ENCOUNTER Chief Complaint: 3 months out from left total knee. Almost a year out from her right knee. HPI: Pain: none AROM: normal Function: normal Activity: Return to most routine activities Severity: Not applicable. Performing home exercise programming. FAMILY HISTORY Problem Relation Age of Onset - Hypertension Mother Current Outpatient Medications Medication Sig - docusate sodium (COLACE) 100 mg capsule Take 1 capsule by mouth twice daily as needed for constipation. take twice daily while taking opioid pain medication - aspirin, enteric coated (ECOTRIN LOW STRENGTH) 81 mg EC tablet Take 1 tablet by mouth twice daily. (Patient taking differently: Take 81 mg by mouth once daily. ) - TURMERIC ORAL Take by mouth once daily. (Patient not taking: Reported on 11/27/2020 ) - etodolac (LODINE) 400 mg tablet Take 1 tablet by mouth twice daily. - Fluticasone Propionate 250 mcg/actuation DsDv Inhale as instructed as needed. - ESTROGEN,KAVITA/ME-TE STOSTERONE (ESTRATEST ORAL) Take by mouth once daily. No current facility-administere d medications for this visit. ALLERGIES Allergen Reactions - Penicillins Allergies, medications, past surgical history, family history and past medical history were reviewed per this encounter. Physical Examination: Region: Knee General Appearance: Appears healthy, well-nourished, no deformities. Left Exam: AROM: normal PROM: normal Point Tenderness location: none Swelling/Effusion: none Stability: normal Muscle Strength: normal Skin: normal Right Exam: AROM: normal PROM: normal Point Tenderness location: none Swelling/Effusion: none Stability: normal Muscle Strength: normal Skin: normal Assessment and Plan: Doing extremely well She has returned from her trip to [place] in [place] and did a lot of walking. No issues with this. Okay to continue to progress activities. Follow-up with me in 3 months, which can be virtually in regards to her left knee. We will see her at 1 year out in person for the left and right knee with x-rays and then transition to surveillance follow-up. Dina Roger MD Sports Medicine/Orthopaedic Surgery Referring Provider: DINA ROGER [[id number]] Allergies As of Date: 02/23/2021 Noted Allergy Reaction PENICILLINS 12/05/2008 Date Reviewed: 02/23/2021 Reviewed by: Ricardo Garza MA - Fully Assessed Reason for Visit: Post Op [174] Primary Visit Diagnosis:Status post total left knee replacement [Z96.652] Prescriptions as of 02/23/2021 - docusate sodium (COLACE) 100 mg capsule Take 1 capsule by mouth twice daily as needed for constipation. take twice daily while taking opioid pain medication - aspirin, enteric coated (ECOTRIN LOW STRENGTH) 81 mg EC tablet Take 1 tablet by mouth twice daily. - TURMERIC ORAL Take by mouth once daily. - etodolac (LODINE) 400 mg tablet Take 1 tablet by mouth twice daily. - Fluticasone Propionate 250 mcg/actuation DsDv Inhale as instructed as needed. - ESTROGEN,KAVITA/ME-TE STOSTERONE (ESTRATEST ORAL) Take by mouth once daily. Problem List As Of Date 02/23/2021 Noted Resolved Carpal Tunnel Syndrome [G56.00] 12/05/2008 Other affections of shoulder region, not elsewh*08/09/2012 Rotator cuff (capsule) sprain [S43.429A] 12/18/2012 Primary osteoarthritis of right knee [M17.11] Arthritis of knee [M17.10] 04/01/2020 04/02/2020 Primary osteoarthritis of left knee [M17.12] DJD (degenerative joint disease) of knee [M17.1*12/08/2020 12/09/2020 Disposition: Return in about 3 months (around 05/24/2021) for Virtual Visit Follow Up. Follow-up and Disposition History for Encounter Date Provider Department Center 02/23/2021 [id number] ROGER Encounter Status:Closed by DINA ROGER on 02/23/21 [facility] CNOVon 01-12-2021 CNOV Office Visit (ORAVON) MAHESH BAXTER I ([id number]) 1965 F Date Time Provider Department 01/12/21 8:15 AM DINA ROGER During your visit today, we recorded the following information about you: Weight Height 73.5 kg 1.575 m Dina Roger MD 01/13/2021 4:19 PM Signed GLOBAL/POSTOP ENCOUNTER Chief Complaint: status post left total knee arthroplasty DOS 12/07/20 Mahseh Baxter is a 55 year old year old female who returned today for 5 weeks, 1 day post op: left TKA. She presents today ambulating with a cane. She rates her pain today at 3-4/10 and dull. She also reports some swelling. She reports having increased pain at night, 7/10 and throbbing and sometimes adds Tylenol 500mg to her regimen. She has been icing and taking Lodine for relief. HPI: Pain: tolerable AND appropriate for post-op period Function: improving Therapy: completed, continuing HEP ROS reviewed Allergies, medications, past surgical history and past medical history were reviewed per this encounter. Physical Examination: Region: Knee Left Exam: Incision: healing without evidence of infection AROM: 3-125 PROM: same as active Swelling/Effusion: none Stability: normal Muscle Strength: decreased Assessment and Plan: Doing well. Progressing. Continue with PT and HEP. May sink, submerge, and soak. Okay to travel to [place], encourage to work on extension and ROM. Follow up in 6 weeks, XR only if issue. Dina Roger MD Sports Medicine/Orthopaedic Surgery Referring Provider: DINA ROGER [[id number]] Allergies As of Date: 01/12/2021 Noted Allergy Reaction PENICILLINS 12/05/2008 Date Reviewed: 01/12/2021 Reviewed by: Ricardo Garza MA - Fully Assessed Reason for Visit: Post Op [174] Primary Visit Diagnosis:Status post total left knee replacement [Z96.652] Prescriptions as of 01/13/2021 - docusate sodium (COLACE) 100 mg capsule Take 1 capsule by mouth twice daily as needed for constipation. take twice daily while taking opioid pain medication - aspirin, enteric coated (ECOTRIN LOW STRENGTH) 81 mg EC tablet Take 1 tablet by mouth twice daily. - TURMERIC ORAL Take by mouth once daily. - etodolac (LODINE) 400 mg tablet Take 1 tablet by mouth twice daily. - Fluticasone Propionate 250 mcg/actuation DsDv Inhale as instructed as needed. - ESTROGEN,KAVITA/ME-TE STOSTERONE (ESTRATEST ORAL) Take by mouth once daily. Problem List As Of Date 01/12/2021 Noted Resolved Carpal Tunnel Syndrome [G56.00] 12/05/2008 Other affections of shoulder region, not elsewh*08/09/2012 Rotator cuff (capsule) sprain [S43.429A] 12/18/2012 Primary osteoarthritis of right knee [M17.11] Arthritis of knee [M17.10] 04/01/2020 04/02/2020 Primary osteoarthritis of left knee [M17.12] DJD (degenerative joint disease) of knee [M17.1*12/08/2020 12/09/2020 Disposition: Return in about 6 weeks (around 02/23/2021). Follow-up and Disposition History Recorded Encounter Status:Closed by DINA ROGER on 01/13/21 Normal [facility] XR KNEE 3V AP/LAT/MERCHANT L Ton 01-12-2021 XR KNEE 3V AP/LAT/MERCHANT LT * * *Final Report* * * DATE OF EXAM: Jan 12 2021 8:02AM AFR 5208 - XR KNEE 3V AP/LAT/MERCHANT LT / PROCEDURE REASON: Status post total left knee replacement * * * * Physician Interpretation * * * * EXAMINATION / TECHNIQUE: XR KNEE 3V AP/LAT/MERCHANT LT PATIENT/TECHNOLOGIST PROVIDED HISTORY: left knee post op CLINICAL INFORMATION ( PROVIDED BY ORDERING CLINICIAN) : Status post total left knee replacement COMPARISON: 12/07/2020 RESULT: Status post left total knee arthroplasty. Arthroplasty components are intact without evidence of loosening or periprosthetic fracture. Small joint effusion and mild anterior knee soft tissue swelling. Interval resolution of periarticular soft tissue gas. Intact right total knee arthroplasty. IMPRESSION: Left total knee arthroplasty without complication. 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[employer] Transcribe Date/Time: Jan 12 2021 9:18A Dictated by : TRAVIS BERMUDEZ MD This examination was interpreted and the report reviewed and electronically signed by: UBALDO WILCOX MD on Jan 12 2021 9:29AM EST [id number] CN Normal [facility] CNNURSEon 12-22-2020 CNNURSE Nurse Visit (SKINNY) MAHESH BAXTER I ([id number]) 1965 F Date Time Provider Department 12/22/20 11:00 AM JAREN MANJARREZ During your visit today, we recorded the following information about you: Jaren Manjarrez RN 12/22/2020 11:32 AM Signed GLOBAL/POSTOP ENCOUNTER Chief Complaint: S/P - L TKA 12/07/2020 Mahesh Baxter is a 55 year old year old female who returned today for 2 weeks post op: L TKA. HPI: Pain: Appropriate, Tolerable; Pt still taking [place] 1 every 6 Hr, alteranting with 400mg Ibuprofen. Pt requesting to transition to Lodine AND Tylenol as that worked better than before. Function: AMB w/ Cane. Therapy: [facility] transition to PT ROS reviewed Allergies, medications, past surgical history and past medical history were reviewed per this encounter. Physical Examination: Region: Knee Left Knee Exam: Incision: healing without evidence of infection. Inferior Suture Tail removed. No evidence of superior suture tail. Bandaid applied over inferior suture tail. AROM: decreased extension and decreased flexion PROM: decreased extension and decreased flexion Swelling/Effusion: moderate Stability: normal Muscle Strength: decreased Assessment and Plan: Pt doing ok. Pt must focus on Full Extension, increasing ROM. Continue HEP AND PT. Jaren Manjarrez RN Pt seen for RN post op visit. Dr. SIMMONS also saw pt and was utilized as resource/ oversight in clinic. Dina Roger MD Sports Medicine/Orthopaedic Surgery Jaren Manjarrez RN 12/22/2020 11:27 AM Signed Incision care: no scrubbing, soaking, submerging until scabbing has healed (approximately 6 weeks). No special ointments or lotions until same timeframe. Referring Provider: DINA ROGER [[id number]] Allergies As of Date: 12/22/2020 Noted Allergy Reaction PENICILLINS 12/05/2008 Date Reviewed: 12/22/2020 Reviewed by: Jaren Manjarrez RN - Fully Assessed Reason for Visit: Post Op [174] Primary Visit Diagnosis:Status post total left knee replacement [Z96.652] Order(s):XR KNEE POST OP 3V AP/LAT/ LT [[id number]] Order #: [id number] FUTURE etodolac (LODINE) 400 mg tabletTake 1 tablet by mouth twice daily for 21 days.Disp: 42 tabletRfl: 0 Prescriptions as of 12/22/2020 - etodolac (LODINE) 400 mg tablet Take 1 tablet by mouth twice daily for 21 days. - methocarbamol (ROBAXIN) 500 mg tablet Take 1 tablet by mouth three times daily for 7 days. - docusate sodium (COLACE) 100 mg capsule Take 1 capsule by mouth twice daily as needed for constipation. take twice daily while taking opioid pain medication - aspirin, enteric coated (ECOTRIN LOW STRENGTH) 81 mg EC tablet Take 1 tablet by mouth twice daily. - TURMERIC ORAL Take by mouth once daily. - etodolac (LODINE) 400 mg tablet Take 1 tablet by mouth twice daily. - Fluticasone Propionate 250 mcg/actuation DsDv Inhale as instructed as needed. - ESTROGEN,KAVITA/ME-TE STOSTERONE (ESTRATEST ORAL) Take by mouth once daily. Problem List As Of Date 12/22/2020 Noted Resolved Carpal Tunnel Syndrome [G56.00] 12/05/2008 Other affections of shoulder region, not elsewh*08/09/2012 Rotator cuff (capsule) sprain [S43.429A] 12/18/2012 Primary osteoarthritis of right knee [M17.11] Arthritis of knee [M17.10] 04/01/2020 04/02/2020 Primary osteoarthritis of left knee [M17.12] DJD (degenerative joint disease) of knee [M17.1*12/08/2020 12/09/2020 Other instructions from your clinician: Incision care: no scrubbing, soaking, submerging until scabbing has healed (approximately 6 weeks). No special ointments or lotions until same timeframe. Prescriptions ordered this encounter Disp Refills Start End ETODOLAC 400 MG TABLET 42 t* 0 12/22/2020 01/12/2021 Route: ORAL Sig: Take 1 tablet by mouth twice daily for 21 days. Disposition: Return in about 4 weeks (around 01/19/2021) for in Office Follow Up, Imaging Before Appointment. Follow-up and Disposition History Recorded Encounter Status:Closed by DINA ROGER on 12/22/20 [facility] [place] [facility] MAHESH BAXTER I ([id number]) 1965 F Date Time Provider Department 12/14/20 JAREN MANJARREZ [facility] During your visit today, we recorded the following information about you: Allergies As of Date: 12/14/2020 Noted Allergy Reaction PENICILLINS 12/05/2008 Date Reviewed: 12/08/2020 Reviewed by: Pamela Andrade RN - Fully Assessed Reason for Visit: Returning Patient's Call [408] Aesthetics Instructor - Other [3602] Medication Problem [65] Prescriptions as of 12/14/2020 - docusate sodium (COLACE) 100 mg capsule Take 1 capsule by mouth twice daily as needed for constipation. take twice daily while taking opioid pain medication - HYDROcodone-acetamin ophen (NORCO) 5-325 mg per tablet Take 1-2 tablets by mouth every 6 hours as needed for up to 7 days. - aspirin, enteric coated (ECOTRIN LOW STRENGTH) 81 mg EC tablet Take 1 tablet by mouth twice daily. - TURMERIC ORAL Take by mouth once daily. - etodolac (LODINE) 400 mg tablet Take 1 tablet by mouth twice daily. - Fluticasone Propionate 250 mcg/actuation DsDv Inhale as instructed as needed. - ESTROGEN,KAVITA/ME-TE STOSTERONE (ESTRATEST ORAL) Take by mouth once daily. Problem List As Of Date 12/14/2020 Noted Resolved Carpal Tunnel Syndrome [G56.00] 12/05/2008 Other affections of shoulder region, not elsewh*08/09/2012 Rotator cuff (capsule) sprain [S43.429A] 12/18/2012 Primary osteoarthritis of right knee [M17.11] Arthritis of knee [M17.10] 04/01/2020 04/02/2020 Primary osteoarthritis of left knee [M17.12] DJD (degenerative joint disease) of knee [M17.1*12/08/2020 12/09/2020 Encounter Status:Closed by JAREN MANJARREZ on 12/14/20 [facility]LETEon 12-14-2020 OBSOLETE Refill ([facility]) MAHESH BAXTER I ([id number]) 1965 F Date Time Provider Department 12/14/20 PIERCE FOSS [facility] During your visit today, we recorded the following information about you: Pierce Foss PA-C 12/14/2020 4:11 PM Signed S/p LTKA 12/07/20 PDMP website checked and validated. All prescriptions have been APPROPRIATELY filled. No suspicious activity was identified. 12/14/2020 by Pierce Foss PA-C Patient's request for medication is as follows: Signed Prescriptions Disp Refills HYDROcodone-acetamin ophen (NORCO) 5-325 mg per tablet 40 tablet 0 Sig: Take 1-2 tablets by mouth every 6 hours as needed for up to 7 days. MASHA Class: C-II MARIO: No Authorizing Provider: PIERCE FOSS Prescription(s) as above. Please process accordingly. Pierce Foss PA-C Allergies As of Date: 12/14/2020 Noted Allergy Reaction PENICILLINS 12/05/2008 Date Reviewed: 12/14/2020 Reviewed by: Pierce Foss PA-C - Fully Assessed Visit Diagnoses:Post-op pain [G89.18] Primary osteoarthritis of left knee [M17.12] Order(s):HYDROcodone -acetaminophen (NORCO) 5-325 mg per tabletTake 1-2 tablets by mouth every 6 hours as needed for up to 7 days.Disp: 40 tabletRfl: 0 Prescriptions as of 12/14/2020 - HYDROcodone-acetamin ophen (NORCO) 5-325 mg per tablet Take 1-2 tablets by mouth every 6 hours as needed for up to 7 days. - docusate sodium (COLACE) 100 mg capsule Take 1 capsule by mouth twice daily as needed for constipation. take twice daily while taking opioid pain medication - aspirin, enteric coated (ECOTRIN LOW STRENGTH) 81 mg EC tablet Take 1 tablet by mouth twice daily. - TURMERIC ORAL Take by mouth once daily. - etodolac (LODINE) 400 mg tablet Take 1 tablet by mouth twice daily. - Fluticasone Propionate 250 mcg/actuation DsDv Inhale as instructed as needed. - ESTROGEN,KAVITA/ME-TE STOSTERONE (ESTRATEST ORAL) Take by mouth once daily. Problem List As Of Date 12/14/2020 Noted Resolved Carpal Tunnel Syndrome [G56.00] 12/05/2008 Other affections of shoulder region, not elsewh*08/09/2012 Rotator cuff (capsule) sprain [S43.429A] 12/18/2012 Primary osteoarthritis of right knee [M17.11] Arthritis of knee [M17.10] 04/01/2020 04/02/2020 Primary osteoarthritis of left knee [M17.12] DJD (degenerative joint disease) of knee [M17.1*12/08/2020 12/09/2020 Prescriptions ordered this encounter Disp Refills Start End HYDROCODONE 5 MG-ACETAMINOPHEN 325 M* 40 t* 0 12/14/2020 12/21/2020 Route: ORAL Sig: Take 1-2 tablets by mouth every 6 hours as needed for up to 7 days. Medications Discontinued During This Encounter Prescriptions - HYDROcodone-acetamin ophen (NORCO) 5-325 mg per tablet (Discontinued) Take 1-2 tablets by mouth every 6 hours as needed for up to 7 days. Encounter Status:Closed by PIERCE FOSS [facility] HNO ID: [id number] Author: Dina Roger MD Service: Orthopaedic Surgery Author Type: Physician Type: Discharge Summary Filed: 12/09/2020 1:50 PM Note Text: DISCHARGE SUMMARY PATIENT NAME: Mahesh Baxter ADMISSION DATE: 12/07/2020 DISCHARGE DATE: 12/09/2020 Attending Physician: Dina Roger MD Code Status: Not on file Highest Readmission Risk Score: 10 The 30 day readmissions risk score is derived from an internally validated risk model which evaluates patient level characteristics, utilization history, medication orders and lab results up until the day of discharge. Patients with a score of 40 or above are considered highest risk for readmission. Specific patient level drivers will be listed at the bottom of the summary. Reason for Hospitalization: Active Problems: * No active hospital problems. * Resolved Problems: DJD (degenerative joint disease) of knee POA: Yes Admitting Diagnosis: Knee Advanced Degenerative Joint Disease Discharge Diagnosis: Same as admitting Operations During Hospitalization: Left total knee arthroplasty Procedures During Hospitalization: Peripheral nerve block Consultations: Physical Therapy Case Management Pain Management Occupational therapy Treatment Team: Attending Provider: Dina Roger MD Hospital Course: The patient is a 55 year old @male@ who has been followed by Dr. Dina Roger MD in clinic for DJD left knee. It was determined she would benefit from surgery. The procedure, its risks, benefits, and potential complications were discussed in detail with the patient prior to surgery. Understanding of all topics was conveyed by the patient, and consent was given for surgery. The patient was electively admitted on 12/07/2020. Surgery was scheduled and on 12/07/2020 she underwent a Procedure(s) (LRB): ARTHROPLASTY REPLACE JOINT TOTAL KNEE (Left) with Spinal. The procedure was tolerated well and she was sent to the post operative recovery room in stable condition, where she also did well. Post operative x-rays in the recovery room showed intact hardware. She was subsequently sent to her hospital room for postoperative management. Once on the floor her postoperative course was unremarkable and she did well. Her diet was advanced which she tolerated. Her pain was well controlled on oral, IV and peripheral nerve block; this was eventually transitioned to oral medication alone prior to discharge. She worked with Physical and Occupational Therapy starting on POD#0 who recommended she be discharged home with home care. Her dressing was changed on post operative day #2, and it remained clean dry and intact throughout her stay. She remained afebrile with stable vital signs throughout her stay. She was stable for discharge to Home with Home Health Care on POD#2. Complete and comprehensive discharge instructions were provided to the patient as well as necessary prescriptions. The patient had no further questions and was advised to call with any questions, concerns, or problems. Transitions of Care Critical Issues: NEW BASELINE FOR PATIENT: altered mobility, pain Patient was hemodynamically stable postoperatively. Discharge Antibiotics: Prior to surgery the patient was treated with antibiotics and continued with antibiotics 24 hours postoperatively Transfers: PACU and then to the hospital surgical floor when PACU criteria was met. DVT Prophylaxis: Aspirin 81mg BID x 30 days total Pain Control: Oral narcotics Complications: Continued throughout the hospital course without complications. LABS AND PROCEDURES PENDING AT DISCHARGE: No pending results. Relevant labs included: Recent Labs 12/08/20 1123 HB 12.1 HCT 36.2 No new labs Patient Condition @ Discharge: Stable Discharge Disposition: Home with Home Health Care PHYSICAL EXAM (CHOOSE FIRST BLANK IF NOT LAST DAY PROGRESS NOTE): see the daily note Information Provided to Patient: patient was given DC instructions verbally and written for patient and staff for DC home Activity: Weight Bearing As Tolerated Diet: Resume pre-hospital diet Wound/Surgical Site Care: it remains drainage-free, you may leave the dressing off, keeping the wound open to air. You may not submerge the wound under standing water for 6 weeks time after surgery (i.e. no baths, no hot tubs, no swimming pools). Do not rub the wound, but rather pat dry. If you have non-absorbable sutures in place, these will be taken out approximately 14-21 days from the time of surgery on your follow-up appointment. Observe the wound for signs of infection, including increased redness, swelling, or persistent drainage around the incision site. It is normal for your wound to be warmer immediately after surgery (even up to 4-6 weeks after surgery). If you begin to experience fevers, chills, night sweats, or flu-like symptoms and your wound shows signs concerning for wou (more content not included)... [facility] CONSULT PROGon 12-09-2020 CONSULT PROG HNO ID: [id number] Author: Arlyn Cazares APRN.YAZAN Service: Pain Management Author Type: Nurse Practitioner Type: Consult Progress Note Filed: 12/09/2020 1:01 PM Note Text: PERIPHERAL NERVE CATHETER PROGRESS NOTE PATIENT NAME: Mahesh Baxter SERVICE DATE: 12/08/2020 SERVICE TIME: 8:45 AM ASSESSMENT Mahesh Baxter is a 55 year old female who is POD# 2, S/P L TKA with L adductor PNC placed to aid in post op pain control. Ms. Baxter is walking in her room, she reports well controlled LLE pain LLE PNC site without signs or symptoms of infection, no erythema, tenderness, drainage, or warmth. LLE sensory and motor WNL for distribution of PNC. She is tolerating PO, denies N/V. PLAN Patient reports pain well-controlled since PNC placed on hold this AM. Patient currently rating pain score 2. LLE PNC removed by APMS, catheter tip intact. LLE PNC site without signs or symptoms of infection, no erythema, tenderness, drainage, or warmth. Patient encouraged to utilize oral pain regimen to optimize pain control. The plan was discussed in detail with patient +/- family, bedside RN, APMS staff and primary service, who expressed agreement, understanding and comfort with the plan. APMS will sign off and defer further management to primary team. If pain worsens or difficulties arise please reconsult APMS. Thank you for including us in her care. SUBJECTIVE CHIEF COMPLAINT: Post op pain PRIMARY SERVICE: Ortho INTERVAL HPI: Mahesh Baxter is a 55 year old female who is POD# 2, S/P L TKA with L adductor PNC placed to aid in post op pain control. Pain level is 4 at rest 7 with ambulation on a scale of 0-10. Is the patient tolerating Physical Therapy?: Yes Pain at surgical site? Yes, LLE Character: aching Duration: intermittent Radiation: No Relieved: Yes - Repositioning and PNC Is patient satisfied with pain control: Yes Overnight Events: None Overnight Pain Interventions: no Allergy: ALLERGIES Allergen Reactions - Penicillins MEDICATIONS: I have interrogated the multi therapy pump for the correct settings and solution: Yes. Solution Ropivacaine 0.2%, rate 6/4/30/2 ml/hr. Adjuvant Pain Medication: See below. Current Facility-Administere d Medications Medication Dose Route Frequency - dextrose 5% in NaCl 0.45% with 20 mEq/L KCl iv infusion 75 mL/hr INTRAVENOUS CONTINUOUS - traMADol 50 mg tab(s) (ULTRAM) 50 mg ORAL q 6 H PRN - HYDROmorphone 0.5 mg injection (DILAUDID) 0.5 mg INTRAVENOUS q 2 H PRN - ondansetron 4 mg tab(s) (ZOFRAN) 4 mg ORAL q 6 H PRN Or - ondansetron (PF) 4 mg injection (ZOFRAN) 4 mg INTRAVENOUS q 6 H PRN - magnesium hydroxide 400 mg/5 mL 30 mL (MOM) 30 mL ORAL DAILY PRN - bisacodyl EC 10 mg tab(s) (DULCOLAX) 10 mg ORAL DAILY - diphenhydrAMINE 25 mg (BENADRYL) 25 mg ORAL q 4 H PRN - aluminum-magnesium hydroxide-simethicon e 200-200-20 mg/5 mL 30 mL (MAALOX,MYLANTA,MAG- AL PLUS) 30 mL ORAL q 2 H PRN - ferrous sulfate 325 mg tab(s) 325 mg ORAL BID w MEALS - ascorbic acid (vitamin C) 500 mg tab(s) (VITAMIN C) 500 mg ORAL BID w MEALS - docusate sodium 100 mg cap(s) (COLACE) 100 mg ORAL BID - senna 17.2 mg tab(s) (SENOKOT) 17.2 mg ORAL AT BEDTIME - aspirin, enteric coated 81 mg tab(s) 81 mg ORAL BID - NaCl 0.9% iv flush bag 20 mL INTRAVENOUS PRN - sodium chloride 0.9 % (flush) 3-5 mL (BD POSIFLUSH) 3-5 mL INTRAVENOUS q 12 H - HYDROcodone 5 mg - acetaminophen 325 mg tablet (NORCO) 1-2 tablet ORAL q 4 H PRN - famotidine 40 mg tab(s) (PEPCID) 40 mg ORAL DAILY - NaCl 0.9% iv infusion 5-30 mL/hr INTRAVENOUS CONTINUOUS - lactated ringers 250-500 mL iv bolus 250-500 mL INTRAVENOUS PRN OBJECTIVE: PHYSICAL EXAM: BP 129/69 Pulse 100 Temp 37.2 ?C (99 ?F) (Oral) Resp 16 Ht 157.5 cm (5' 2.01 ) Wt 76.2 kg (168 lb) SpO2 95% BMI 30.72 kg/m? Affect: awake, alert and oriented General Impression: appears comfortable Catheter site is clean, non-tender and dressing intact. Sensory exam: Surgical limb: Left Lower Extremity: diminished at distribution of nerve block Other limb: intact Motor Exam: Surgical limb: Left Lower Extremity: diminished at distribution of nerve block Other limb: intact Respiratory Exam: Respirations: Breathing appears normal Thoracostomy tube?: No Gastrointestinal Exam: Abdomen: + BS NG?: Yes DATA: Lab Results Component Latest Ref Rng AND Units 12/08/2020 WBC 3.70 - 11.00 k/uL 9.29 RBC 3.90 - 5.20 m/uL 3.96 Hemoglobin 11.5 - 15.5 g/dL 12.1 Hematocrit 36.0 - 46.0 % 36.2 MCV 80.0 - 100.0 fL 91.4 MCH 26.0 - 34.0 pG 30.6 MCHC 30.5 - 36.0 g/dL 33.4 RDW-CV 11.5 - 15.0 % 12.6 Platelet Count 150 - 400 k/uL 169 MPV 9.0 - 12.7 fL 10.7 Absolute nRBC <0.01 k/uL <0.01 Component Latest Ref Rng AND Units 12/08/2020 Glucose 65 - 100 mg/dL 133 (H) BUN 8 - 25 mg/dL 10 Creatinine 0.70 - 1.40 mg/dL 0.85 Sodium 132 - 148 mmol/L 136 Potassium 3.5 - 5.0 mmol/L (more content not included)... [facility] NURSING PROGon 12-09-2020 NURSING PROG HNO ID: [id number] Author: Gely Bangura RN Service: ? 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 This note was completed by: Gely Bangura [facility] NURSING PROG HNO ID: [id number] Author: Gely Bangura RN Service: ? Author Type: Registered Nurse Type: Nursing Progress Note Filed: 12/09/2020 11:28 AM Note Text: Nursing Progress Note Patient Name: Mahesh Baxter Patient Location: [place] [address] Daily Note:IV infusing as ordered.Took diet well.no n/v.Voiding clear yellow urine.Left knee dressing dry and intact.Circulation adequate to the left leg,toes warm and mobile.Pulses are palpable.Nerve block was removed.Up to chair -ambulated in morales with walker and one assist.Moving very well. This note was completed by: Gely Bangura [facility] THERAPY NTon 12-09-2020 THERAPY NT HNO ID: [id number] Author: Paulina Johnson, PT Service: Physical Therapy Author Type: Physical Therapist Type: Therapy (PT/OT/Speech/Resp) Filed: 12/09/2020 11:59 AM Note Text: Physical Therapy Treatment SERVICE DATE: 12/09/2020 SERVICE TIME: 0942 to 1007 ROOM: [place] [address] Recommended Discharge Disposition: Home PT Anticipated Discharge Needs: Physical Assist at Home;Equipment Physical Assist at Home for: Cleaning;Laundry;Loida ls;Shopping;Transpor tation Recommended Discharge Equipment: Wheeled Walker PT 6 Clicks Score: 22 Precautions/Activity Restrictions: Total Knee Replacement;Weight Bearing Restrictions;Fall Risk Precaution/Activity Restriction Comments: Educated on precautions. Extremity With Weight Bearing Restricted: Left Lower Extremity Left Lower Extremity Weight Bearing Status: WBAT Current Hospital Course: Pt is a 55 yo female who had a L TKR 12/07/20. Hx of R TKR March 2020. Reason for Hospital Admission: L TKR Relevant Past Medical History: OA, CTS Physical Therapy Problem List: Pain;Safety Deficits;Decreased Activity Tolerance;Functional Mobility Impairment;Balance Impaired;Decreased Range Of Motion;Decreased Strength Treatment Interventions: Education;Self Care / Home Management;Joint Mobility;Strengtheni ng;Functional Mobility Training;Balance Training;Pain Management Home Environment Patient Lives With: Spouse Assistance Available: PRN Entry To Home: No Stairs Number Of Stairs To Bed/Bath: 0 Tub/Shower Type: walk in shower Laundry: 1st floor, previously independent Equipment Owned: Wheeled Walker;Crutch(es);Gr ab Bars-Toilet;Grab Bars-Shower;Shower Chair;Dance Historian;Elevat ed Toilet Seat Prior Functional Level: Within Functional Limits Prior Functional Level Comments: Ind ambulator, ind with ADL's, and IADL's CURRENT FUNCTIONAL STATUS: Most recent performance Current Functional Mobility Assist Level Additional Information Rolling Modified Independent Supine to Sit Modified Independent Sit to Supine Modified Independent Scooting Modified Independent Sit to Stand Supervision Stand to Sit Supervision Bed to Chair Toilet/Commode Contact Guard Assistance Gait Contact Guard Assistance Gait Device: Wheeled Walker Gait Distance (feet): 2x250' Stairs Contact Guard Assistance Stairs Device: Rail Number of Stairs: 4 (Ascending and descending) step to gait pattern. No loss of balance. Curb Step Car Transfer Blank downs indicate activity not attempted Gait Deviations Left Lower Extremity: Heel strike during initial stance decreased;Knee flexion during stance increased;Knee stability during stance phase decreased;Step length decreased;Stance time decreased General Deviations/Observati ons: Purnima decreased;Flexed trunk posture;Step length decreased Balance: Dynamic Sitting;Dynamic Standing Dynamic Sitting Balance: Good Patient accepts moderate challenge, able to maintain balance while picking up object off floor Dynamic Standing Balance: Fair Patient accepts minimal challenge, able to maintain balance while turning head/trunk Activity Tolerance: Sitting Activity;Standing Activity Sitting Activity: Seated exercise program Sitting Activity Tolerance (in minutes): 15 Standing Activity: Gait WW Standing Activity Tolerance (in minutes): 10 JH-HLM: 8: Walk 250 feet or more Learning/Educational Needs: Discharge Plan;Functional Activities/Mobility; Pain Management;Plan of Care;Precautions;Saf ety Goals for Plan of Care: Patient /Caregiver Goals: Go Home Goals: Patient will demonstrate progress with functional mobility to allow safe discharge to home with available support and/or physical assistance. Able to perform HEP with: Independent Ambulate with: Supervision Distance: 200 Device: Wheeled Walker Progress Toward Goals: Progressing as expected Rehab Potential: Good Patient will be discontinued from Physical Therapy when no further skilled needs are identified in this setting. PLAN: PT Frequency: Twice daily Plan of Care developed with: Patient TREATMENT INTERVENTIONS: Therapy Diagnosis: Difficulty walking-musculoskele carolin;General symptoms and signs-other;Decrease d activities of daily living (ADL) Interventions Provided: Therapeutic Exercise (06798);Gait Training (87935) Therapeutic Exercise (63854) Treatment Minutes: 10 Pt completed seated and supine exercise programs. Pts tolerance for activity is improving. Gait Training (41816) Treatment Minutes: 15 Pt completed gait with WW and stairs with rail with no LOB. Pts tolerance for gait is improving. Total Timed Code Treatment Minutes: 25 Total Treatment Time (minutes): 25 Please see discipline specific clinical documentation flowsheet for complete details for this therapy evaluation/treatment . SIGNATURE: GEORGE Holden PATIENT NAME: Mahesh Baxter DATE: December 09, 2020 TIME: 10:46 AM This PT was present for the session. I reviewed and agr (more content not included)... [facility] Basic Metabolic Panlon 12-08 Anion gap [Moles/Vol] 9 mmol/L Normal 9-18 [facility] Comment on above: Performed By: #### C BC, BMP ####[place] [phone] Calcium [Mass/Vol] 8.8 mg/dL Normal 8.5-10.5 [facility] Comment on above: Performed By: #### C BC, BMP ####[place] [phone] Chloride [Moles/Vol] 105 mmol/L Normal 98-110 [facility] Comment on above: Performed By: #### C BC, BMP ####[place] [phone] CO2 [Moles/Vol] 22 mmol/L Low 23-32 [facility] Comment on above: Performed By: #### C BC, BMP ####[place] [phone] Creatinine [Mass/Vol] 0.85 mg/dL Normal 0.70-1.40 [facility] Comment on above: Performed By: #### C BC, BMP ####[place] [phone] eGFR- Amer. >60 Normal >60 [facility] Comment on above: Performed By: #### C BC, BMP ####[place] [phone] eGFR-All Other Races >60 Normal >60 [facility] Comment on above: Result Comment: eGFR (Estimated GFR) Units of measure: mL/min/1.73 meters squared eGFR is derived from the reexpressed MDRD Study equation using the following parameters: serum creatinine, age, gender and race. The creatinine assay has been calibrated to be traceable to IDMS. An eGFR <60 mL/min/1.73m2 for >3 months is consistent with chronic kidney disease. Refer to KDOQI guidelines for clinical interpretation. In patients with unstable renal function, e.g. those with acute kidney injury, the eGFR may not accurately reflect actual GFR. Performed By: #### C BC, BMP ####[place] [phone] Glucose [Mass/Vol] 133 mg/dL High 65-100 [facility] Comment on above: Performed By: #### C BC, BMP ####[place] [phone] Potassium [Moles/Vol] 4.7 mmol/L Normal 3.5-5.0 [facility] Comment on above: Performed By: #### C BC, BMP ####[place] [phone] Sodium [Moles/Vol] 136 mmol/L Normal 132-148 [facility] Comment on above: Performed By: #### C BC, BMP ####[place] [phone] Urea nitrogen [Mass/Vol] 10 mg/dL Normal 8-25 [facility] Comment on above: Performed By: #### C BC, BMP ####[place] [phone] CBCon 12-08-2020 Absolute nRBC <0.01 Normal <0.01 [facility] Comment on above: Performed By: #### C BC, BMP ####[place] [phone] Erythrocyte distribution width (RBC) [Ratio] 12.6 % Normal 11.5-15.0 [facility] Comment on above: Performed By: #### C BC, BMP ####[place] [phone] Hematocrit (Bld) [Volume fraction] 36.2 % Normal 36.0-46.0 [facility] Comment on above: Performed By: #### C BC, BMP ####[place] [phone] Hemoglobin (Bld) [Mass/Vol] 12.1 g/dL Normal 11.5-15.5 [facility] Comment on above: Performed By: #### C BC, BMP ####[place] [phone] MCH 30.6 pG Normal 26.0-34.0 [facility] Comment on above: Performed By: #### C BC, BMP ####[phone] MCHC (RBC) [Mass/Vol] 33.4 g/dL Normal 30.5-36.0 [facility] Comment on above: Performed By: #### C BC, BMP ####[place] [phone] MCV (RBC) [Entitic vol] 91.4 fL Normal 80.0-100.0 [facility] Comment on above: Performed By: #### C BC, BMP ####[phone] Platelet mean volume (Bld) [Entitic vol] 10.7 fL Normal 9.0-12.7 [facility] Comment on above: Performed By: #### C BC, BMP ####[place] [phone] Platelets (Bld) [#/Vol] 169 10*3/uL Normal 150-400 [facility] Comment on above: Performed By: #### C BC, BMP ####[facility] [place], [place] [phone] RBC (Bld) [#/Vol] 3.96 10*6/uL Normal 3.90-5.20 [facility] Comment on above: Performed By: #### C BC, BMP ####[facility] [place], [place] [phone] WBC (Bld) [#/Vol] 9.29 10*3/uL Normal 3.70-11.00 [facility] Comment on above: Performed By: #### C BC, BMP ####[facility] [place], [place] [phone] CONSULT PROGon 12-08-2020 CONSULT PROG HNO ID: [id number] Author: Arlyn Cazares APRN.STACK SUPERVISOR Service: Pain Management Author Type: Nurse Practitioner Type: Consult Progress Note Filed: 12/08/2020 1:47 PM Note Text: PERIPHERAL NERVE CATHETER PROGRESS NOTE PATIENT NAME: Mahesh Baxter SERVICE DATE: 12/08/2020 SERVICE TIME: 1:42 PM ASSESSMENT Mahesh Baxter is a 55 year old female who is POD# 1, S/P L TKA with L adductor PNC placed to aid in post op pain control. Ms. Baxter is resting in bed, she reports well controlled LLE pain LLE PNC site without signs or symptoms of infection, no erythema, tenderness, drainage, or warmth. LLE sensory and motor WNL for distribution of PNC. She is tolerating PO, denies N/V. PLAN 1. Continue LLE PNC at 08/14//2, will remove PNC tomorrow 2. Continue pain regimen per Ortho The plan was discussed in detail with patient +/- family, bedside RN, APMS staff and primary service, who expressed agreement, understanding and comfort with the plan. Thank you for including us in her care. Please call us with any questions or concerns. APMS will continue to follow. SUBJECTIVE CHIEF COMPLAINT: Post op pain PRIMARY SERVICE: Ortho INTERVAL HPI: Mahesh Baxter is a 55 year old female who is POD# 1, S/P L TKA with L adductor PNC placed to aid in post op pain control. Pain level is 4 at rest 7 with ambulation on a scale of 0-10. Is the patient tolerating Physical Therapy?: Yes Pain at surgical site? Yes, LLE Character: aching Duration: intermittent Radiation: No Relieved: Yes - Repositioning and PNC Is patient satisfied with pain control: Yes Overnight Events: None Overnight Pain Interventions: no Allergy: ALLERGIES Allergen Reactions - Penicillins MEDICATIONS: I have interrogated the multi therapy pump for the correct settings and solution: Yes. Solution Ropivacaine 0.2%, rate 6/4/30/2 ml/hr. Adjuvant Pain Medication: See below. Current Facility-Administere d Medications Medication Dose Route Frequency - dextrose 5% in NaCl 0.45% with 20 mEq/L KCl iv infusion 75 mL/hr INTRAVENOUS CONTINUOUS - keTORolac 15 mg injection (TORADOL) 15 mg INTRAVENOUS q 6 H - traMADol 50 mg tab(s) (ULTRAM) 50 mg ORAL q 6 H PRN - HYDROmorphone 0.5 mg injection (DILAUDID) 0.5 mg INTRAVENOUS q 2 H PRN - ondansetron 4 mg tab(s) (ZOFRAN) 4 mg ORAL q 6 H PRN Or - ondansetron (PF) 4 mg injection (ZOFRAN) 4 mg INTRAVENOUS q 6 H PRN - magnesium hydroxide 400 mg/5 mL 30 mL (MOM) 30 mL ORAL DAILY PRN - [START ON 12/09/2020] bisacodyl EC 10 mg tab(s) (DULCOLAX) 10 mg ORAL DAILY - diphenhydrAMINE 25 mg (BENADRYL) 25 mg ORAL q 4 H PRN - aluminum-magnesium hydroxide-simethicon e 200-200-20 mg/5 mL 30 mL (MAALOX,MYLANTA,MAG- AL PLUS) 30 mL ORAL q 2 H PRN - ferrous sulfate 325 mg tab(s) 325 mg ORAL BID w MEALS - ascorbic acid (vitamin C) 500 mg tab(s) (VITAMIN C) 500 mg ORAL BID w MEALS - docusate sodium 100 mg cap(s) (COLACE) 100 mg ORAL BID - senna 17.2 mg tab(s) (SENOKOT) 17.2 mg ORAL AT BEDTIME - aspirin, enteric coated 81 mg tab(s) 81 mg ORAL BID - NaCl 0.9% iv flush bag 20 mL INTRAVENOUS PRN - sodium chloride 0.9 % (flush) 3-5 mL (BD POSIFLUSH) 3-5 mL INTRAVENOUS q 12 H - HYDROcodone 5 mg - acetaminophen 325 mg tablet (NORCO) 1-2 tablet ORAL q 4 H PRN - famotidine 40 mg tab(s) (PEPCID) 40 mg ORAL DAILY - NaCl 0.9% iv infusion 5-30 mL/hr INTRAVENOUS CONTINUOUS - lactated ringers 250-500 mL iv bolus 250-500 mL INTRAVENOUS PRN - ropivacaine nerve block 0.2% (2 mg/mL) - 200 mL PERIPHERAL NERVE CATHETER CONTINUOUS OBJECTIVE: PHYSICAL EXAM: BP 134/73 Pulse 97 Temp 36.7 ?C (98.1 ?F) (Oral) Resp 18 Ht 157.5 cm (5' 2.01 ) Wt 76.2 kg (168 lb) SpO2 97% BMI 30.72 kg/m? Affect: awake, alert and oriented General Impression: appears comfortable Catheter site is clean, non-tender and dressing intact. Sensory exam: Surgical limb: Left Lower Extremity: diminished at distribution of nerve block Other limb: intact Motor Exam: Surgical limb: Left Lower Extremity: diminished at distribution of nerve block Other limb: intact Respiratory Exam: Respirations: Breathing appears normal Thoracostomy tube?: No Gastrointestinal Exam: Abdomen: + BS NG?: Yes DATA: Lab Results Component Latest Ref Rng AND Units 12/08/2020 WBC 3.70 - 11.00 k/uL 9.29 RBC 3.90 - 5.20 m/uL 3.96 Hemoglobin 11.5 - 15.5 g/dL 12.1 Hematocrit 36.0 - 46.0 % 36.2 MCV 80.0 - 100.0 fL 91.4 MCH 26.0 - 34.0 pG 30.6 MCHC 30.5 - 36.0 g/dL 33.4 RDW-CV 11.5 - 15.0 % 12.6 Platelet Count 150 - 400 k/uL 169 MPV 9.0 - 12.7 fL 10.7 Absolute nRBC <0.01 k/uL <0.01 Component Latest Ref Rng AND Units 12/08/2020 Glucose 65 - 100 mg/dL 133 (H) BUN 8 - 25 mg/dL 10 Creatinine 0.70 - 1.40 mg/dL 0.85 Sodium 132 - 148 mmol/L 136 Potassium 3.5 - 5.0 mmol/L 4.7 Chloride 98 - 110 mmol/L 105 CO2 23 - 32 mmol/L 22 (L) Anion Gap 9 - 18 mmol/L 9 Calcium 8.5 - 10.5 mg/dL (more content not included)... [facility] NURSING PROGon 12-08-2020 NURSING PROG HNO ID: [id number] Author: Hawa Torres RN Service: ? Author Type: Registered Nurse Type: Nursing Progress Note Filed: 12/08/2020 2:31 AM Note Text: Nursing Progress Note Patient Name: Mahesh Baxter Patient Location: [place] [address] Daily Note: Patient A/Ox3 and up with 1-assist and walker. Patient complaing of 4/10 pain in LLE following pain medication, see MAR. IVF infusing per MAR. Nerve block is infusing per MAY and dressing is C/D/I. Surgical dressing is C/D/I with ROSSI hose in place. Lung sounds are clear on RA. BS are present with no complaints of N/V. Patient verbalizes she has no additional needs at this time. Bed low and locked with bed alarm in place. This note was completed by: Hawa Torres [facility] THERAPY NTon 12-08-2020 THERAPY NT HNO ID: [id number] Author: Paulina Johnson, PT Service: Physical Therapy Author Type: Physical Therapist Type: Therapy (PT/OT/Speech/Resp) Filed: 12/08/2020 3:33 PM Note Text: Physical Therapy Treatment SERVICE DATE: 12/08/2020 SERVICE TIME: 1250 to 1318 ROOM: [place] [address] Recommended Discharge Disposition: Home PT Anticipated Discharge Needs: Physical Assist at Home;Equipment Physical Assist at Home for: Cleaning;Laundry;Loida ls;Shopping;Transpor tation Recommended Discharge Equipment: Wheeled Walker PT 6 Clicks Score: 21 Precautions/Activity Restrictions: Total Knee Replacement;Weight Bearing Restrictions;Bed/Belem ir Alarm;Fall Risk Precaution/Activity Restriction Comments: Educated on precautions. Extremity With Weight Bearing Restricted: Left Lower Extremity Left Lower Extremity Weight Bearing Status: WBAT Current Hospital Course: Pt is a 55 yo female who had a L TKR 12/07/20. Hx of R TKR March 2020. Reason for Hospital Admission: L TKR Relevant Past Medical History: OA, CTS Physical Therapy Problem List: Edema;Pain;Safety Deficits;Decreased Activity Tolerance;Decreased Range Of Motion;Decreased Strength;Functional Mobility Impairment;Balance Impaired Treatment Interventions: Education;Self Care / Home Management;Joint Mobility;Strengtheni ng;Functional Mobility Training;Balance Training;Pain Management Home Environment Patient Lives With: Spouse Assistance Available: PRN Entry To Home: No Stairs Number Of Stairs To Bed/Bath: 0 Tub/Shower Type: walk in shower Laundry: 1st floor, previously independent Equipment Owned: Wheeled Walker;Crutch(es);Gr ab Bars-Toilet;Grab Bars-Shower;Shower Chair;Dance Historian;Elevat ed Toilet Seat Prior Functional Level: Within Functional Limits Prior Functional Level Comments: Ind ambulator, ind with ADL's, and IADL's CURRENT FUNCTIONAL STATUS: Most recent performance Current Functional Mobility Assist Level Additional Information Rolling Modified Independent Supine to Sit Modified Independent Sit to Supine Scooting Modified Independent Sit to Stand Supervision Stand to Sit Supervision Bed to Chair Toilet/Commode Contact Guard Assistance Gait Contact Guard Assistance Gait Device: Wheeled Walker Gait Distance (feet): 15' 240' Stairs Curb Step Car Transfer Blank downs indicate activity not attempted Gait Deviations Left Lower Extremity: Heel strike during initial stance decreased;Knee flexion during stance increased;Knee stability during stance phase decreased;Step length decreased;Stance time decreased;Weight bearing decreased General Deviations/Observati ons: Purnima decreased;Flexed trunk posture;Step length decreased Balance: Dynamic Sitting;Dynamic Standing Dynamic Sitting Balance: Good Patient accepts moderate challenge, able to maintain balance while picking up object off floor Dynamic Standing Balance: Fair Patient accepts minimal challenge, able to maintain balance while turning head/trunk Activity Tolerance: Sitting Activity;Standing Activity Sitting Activity: seated exercise program Sitting Activity Tolerance (in minutes): 15 Standing Activity: Gait WW Standing Activity Tolerance (in minutes): 8 JH-HLM: 7: Walk 25 feet or more Learning/Educational Needs: Discharge Plan;Functional Activities/Mobility; Pain Management;Plan of Care;Precautions;Saf ety Goals for Plan of Care: Patient /Caregiver Goals: Go Home Goals: Patient will demonstrate progress with functional mobility to allow safe discharge to home with available support and/or physical assistance. Able to perform HEP with: Independent Ambulate with: Supervision Distance: 200 Device: Wheeled Walker Progress Toward Goals: Progressing as expected Rehab Potential: Good Patient will be discontinued from Physical Therapy when no further skilled needs are identified in this setting. PLAN: PT Frequency: Twice daily Plan of Care developed with: Patient TREATMENT INTERVENTIONS: Therapy Diagnosis: Decreased activities of daily living (ADL);Abnormalities of gait and mobility-other;Diffi culty walking-musculoskele carolin;Unsteadiness on feet Interventions Provided: Therapeutic Exercise (71014);Gait Training (62147) Therapeutic Exercise (84213) Treatment Minutes: 15 Pt completed supine and seated exercise programs. Exercise tolerance is improving. Gait Training (56738) Treatment Minutes: 13 Pt completed gait with WW with no LOB. Pts tolerance for gait is improving. Total Timed Code Treatment Minutes: 28 Total Treatment Time (minutes): 28 Please see discipline specific clinical documentation flowsheet for complete details for this therapy evaluation/treatment . SIGNATURE: GEORGE Holden PATIENT NAME: Mahesh Baxter DATE: December 08, 2020 TIME: 2:00 PM This PT was present for the session. I reviewed and agree with the documentation corresponding to this therapy visit. SIGNATURE: Paulina Johnson, PT DATE: (more content not included)... [facility] THERAPY NT HNO ID: [id number] Author: Amna Rosario OT/L Service: Occupational Therapy Author Type: Occupational Therapist Type: Therapy (PT/OT/Speech/Resp) Filed: 12/08/2020 10:38 AM Note Text: Occupational Therapy Evaluation SERVICE DATE: 12/08/2020 SERVICE TIME: 1017 to 1032 ROOM: [place] [address] Recommended Discharge Disposition: Home Recommended Discharge Disposition Comments: Pt has adequate support and necessary DME/AE for safe discharge home. Denies any home going concerns from an OT standpoint. Anticipated Discharge Needs: Physical Assist at Home Physical Assist at Home for: Cleaning;Laundry;Chetna pping;Transportation Recommended Discharge Equipment: No equipment needs anticipated OT 6 Clicks Score: 24 Patient is cleared for discharge home from an OT standpoint. Precautions/Activity Restrictions: Total Knee Replacement;Weight Bearing Restrictions;Bed/Belem ir Alarm;Fall Risk Precaution/Activity Restriction Comments: Educated on precautions. Extremity With Weight Bearing Restricted: Left Lower Extremity Left Lower Extremity Weight Bearing Status: WBAT Current Hospital Course: Pt is a 55 yo female who had a L TKR 12/07/20. Hx of R TKR March 2020. Reason for Hospital Admission: L TKR Relevant Past Medical History: OA, CTS Response to Therapy Interventions: Good participation in activities Continue skilled needs due to: (cleared from OT) Occupational Therapy Problem List: (cleared from OT) Cognition/Communicat ion Deficits Responsiveness: Alert, Awake Follows Commands: 3-step Commands Plan for next visit: (cleared from OT) Home Environment Patient Lives With: Spouse Assistance Available: PRN Entry To Home: No Stairs Number Of Stairs To Bed/Bath: 0 Tub/Shower Type: walk in shower Laundry: 1st floor, previously independent Equipment Owned: Wheeled Walker;Crutch(es);Gr ab Bars-Toilet;Grab Bars-Shower;Shower Chair;Dance Historian;Elevat ed Toilet Seat Prior Functional Level: Within Functional Limits Prior Functional Level Comments: Ind ambulator, ind with ADL's, and IADL's Patient Report: This surgery went way better than the last one. CURRENT FUNCTIONAL STATUS: Most recent performance Current Activities of Daily Living Assist Level Additional Information Feeding Independent Grooming Modified Independent Bathing Upper Body Modified Independent Bathing Lower Body Supervision Dressing Upper Body Modified Independent Dressing Lower Body Supervision Toileting Supervision Instrumental Activities of Daily Living Assist Level Additional Information Meal/Beverage Prep Cleaning Laundry Medication Management with Strategies Functional Mobility Assist Level Additional Information Rolling Supine to Sit Modified Independent Sit to Supine Modified Independent Scooting Sit to Stand Modified Independent Stand to Sit Modified Independent Bed to Chair Toilet/Commode Shower Functional Mobility Supervision Wheeled Walker Blank downs indicate activity not attempted Balance: Static Sitting;Dynamic Sitting;Static Standing;Dynamic Standing Static Sitting Balance: Normal Patient able to maintain steady balance without handhold support Dynamic Sitting Balance: Normal Patient accepts maximal challenge and can shift weight easily within full range in all directions Static Standing Balance: Good Patient able to maintain balance without handhold support, limited postural sway Dynamic Standing Balance: Good Patient accepts moderate challenge, able to maintain balance while picking up object off floor Learning/Educational Needs: Discharge Plan Goals for Plan of Care: Patient /Caregiver Goals: Go Home Patient will be discontinued from Occupational Therapy when no further skilled needs are identified in this setting. PLAN: OT Frequency: Discontinue therapy services Reasons Therapy Services Discontinued: No skilled needs Plan of Care developed with: Patient TREATMENT INTERVENTIONS: Therapy Diagnosis: No Skilled Need Interventions Provided: Evaluation $ Evaluation-Low (76308) Billed Units: 1 unit Training AND education provided in: Activity adaption / compensatory strategies, Adaptive equipment / DME, Assistive device use, Bed mobility, Benefits of in-hospital mobility, Discharge planning, Functional mobility involving ADLs, Lower extremity dressing, Precautions/restrict ions, Role of Occupational Therapy, Sitting balance to improve independence with ADLs/self-care, Standing balance to improve independence with ADLs/self-care, Transfer - Sit to stand, Transfer - Car The following therapeutic skills were used: Cuing verbal, Therapeutic use of self, Teach-back for education Total Treatment Time (minutes): 15 Please see discipline specific clinical documentation flowsheet for complete details for this therapy evaluation/treatment . SIGNATURE: Amna Rosario OT/Zacarias PATIENT NAME: Mahesh Baxter DATE: December 08, 2020 TIME: 10:37 AM Normal [facility] THERAPY NT HNO ID: [id number] Author: Paulina Johnson PT Service: Physical Therapy Author Type: Physical Therapist Type: Therapy (PT/OT/Speech/Resp) Filed: 12/08/2020 1:10 PM Note Text: Physical Therapy Treatment SERVICE DATE: 12/08/2020 SERVICE TIME: 854 to 20 ROOM: [place] [address] Recommended Discharge Disposition: Home PT Anticipated Discharge Needs: Physical Assist at Home Physical Assist at Home for: Cleaning;Laundry;Chetna pping;Transportation Recommended Discharge Equipment: Wheeled Walker PT 6 Clicks Score: 20 Precautions/Activity Restrictions: Total Knee Replacement;Weight Bearing Restrictions;Bed/Belem ir Alarm;Fall Risk Precaution/Activity Restriction Comments: Educated on precautions. Extremity With Weight Bearing Restricted: Left Lower Extremity Left Lower Extremity Weight Bearing Status: WBAT Current Hospital Course: Pt is a 55 yo female who had a L TKR 12/07/20. Hx of R TKR March 2020. Reason for Hospital Admission: L TKR Relevant Past Medical History: OA, CTS Physical Therapy Problem List: Edema;Pain;Safety Deficits;Decreased Activity Tolerance;Decreased Range Of Motion;Decreased Strength;Functional Mobility Impairment;Balance Impaired Treatment Interventions: Education;Self Care / Home Management;Joint Mobility;Strengtheni ng;Functional Mobility Training;Balance Training;Pain Management Home Environment Patient Lives With: Spouse Assistance Available: PRN Entry To Home: No Stairs Number Of Stairs To Bed/Bath: 0 Tub/Shower Type: walk in shower Laundry: 1st floor, previously independent Equipment Owned: Wheeled Walker;Crutch(es);Gr ab Bars-Toilet;Grab Bars-Shower;Shower Chair;Dance Historian;Elevat ed Toilet Seat Prior Functional Level: Within Functional Limits Prior Functional Level Comments: Ind ambulator, ind with ADL's, and IADL's CURRENT FUNCTIONAL STATUS: Most recent performance Current Functional Mobility Assist Level Additional Information Rolling Modified Independent Supine to Sit Modified Independent Sit to Supine Scooting Modified Independent Sit to Stand Supervision Stand to Sit Supervision Bed to Chair Toilet/Commode Contact Guard Assistance Gait Contact Guard Assistance Gait Device: Wheeled Walker Gait Distance (feet): 15', 95' Stairs Curb Step Car Transfer Blank downs indicate activity not attempted Gait Deviations Left Lower Extremity: Heel strike during initial stance decreased;Knee flexion during stance increased;Knee stability during stance phase decreased;Step length decreased;Stance time decreased;Weight bearing decreased General Deviations/Observati ons: Purnima decreased;Flexed trunk posture;Step length decreased Balance: Dynamic Sitting;Dynamic Standing Dynamic Sitting Balance: Good Patient accepts moderate challenge, able to maintain balance while picking up object off floor Dynamic Standing Balance: Fair Patient accepts minimal challenge, able to maintain balance while turning head/trunk Activity Tolerance: Sitting Activity;Standing Activity Sitting Activity: Seated exercise program Sitting Activity Tolerance (in minutes): 10 Standing Activity: Gait WW Standing Activity Tolerance (in minutes): 8 JH-HLM: 7: Walk 25 feet or more Learning/Educational Needs: Discharge Plan;Equipment;Funct ional Activities/Mobility; Pain Management;Plan of Care;Precautions;Saf ety Goals for Plan of Care: Patient /Caregiver Goals: Go Home Goals: Patient will demonstrate progress with functional mobility to allow safe discharge to home with available support and/or physical assistance. Able to perform HEP with: Independent Ambulate with: Supervision Distance: 200 Device: Wheeled Walker Progress Toward Goals: Progressing as expected Rehab Potential: Good Patient will be discontinued from Physical Therapy when no further skilled needs are identified in this setting. PLAN: PT Frequency: Twice daily Plan of Care developed with: Patient TREATMENT INTERVENTIONS: Therapy Diagnosis: Difficulty walking-musculoskele carolin;Abnormalities of gait and mobility-other;Decre ased activities of daily living (ADL) Interventions Provided: Therapeutic Exercise (27868);Gait Training (74281) Therapeutic Exercise (04374) Treatment Minutes: 15 Pt completed seated exercise program. Was completing supine exercise program upon arrival. Gait Training (03818) Treatment Minutes: 10 $ Gait Training (73675) Billed Units: 1 unit Pt completed gait training with WW with no loss of balance. Pt has began walking with reciprocal gait pattern. Total Timed Code Treatment Minutes: 25 Total Treatment Time (minutes): 25 Please see discipline specific clinical documentation flowsheet for complete details for this therapy evaluation/treatment . SIGNATURE: GEORGE Holden PATIENT NAME: Mahesh Baxter DATE: December 08, 2020 TIME: 10:06 AM This PT was present for session. I reviewed and agree with the documentation corresponding to this (more content not included)... [facility] ANES POSTPROC EVALon 021 ANES POSTPROC EVAL HNO ID: [id number] Author: Jace Rodney MD Service: Anesthesiology Author Type: Anesthesiologist Type: Anesthesia Postprocedure Evaluation Filed: 12/07/2020 10:46 AM Note Text: POST ANESTHESIA EVALUATION NOTE : 1965 Procedure Summary Date: 12/07/20 Room / Location: [facility] OR08 / [facility] Anesthesia Start: 40 Anesthesia Stop: 955 Procedure: ARTHROPLASTY REPLACE JOINT TOTAL KNEE (Left Knee) Diagnosis: Primary osteoarthritis of left knee (Primary osteoarthritis of left knee [M17.12]) Surgeons: Dina Roger MD Responsible Provider: Jace Rodney MD Anesthesia Type: spinal ASA Status: 2 Anesthesia Type: spinal Last vitals Vitals Value Taken Time BP 117/67 12/07/20 1045 Temp 36.6 ?C (97.9 ?F) 12/07/20 0954 Pulse 93 12/07/20 1045 Resp 15 12/07/20 1045 SpO2 96 % 12/07/20 1045 Vitals shown include unvalidated device data. Post Anesthesia Patient Status Patient Evaluation: PACU. PACU/ICU Patient Condition: stable. Anticipated Disposition: inpatient floor planned admission. Neurological Status: aware and responsive. Pulmonary Status: breathing comfortably on room air Airway Control: returned to baseline unsupported. Cardiovascular Status: stable. Pain Management: clinically adequate Postoperative Hydration: acceptable. Intraoperative Events: no significant anesthesia events Recommendation: continue current plan of care and further care per PACU/ICU/floor team. No complications documented. SIGNATURE: Jace Rodney MD PATIENT NAME: Mahesh Baxter DATE: December 07, 2020 TIME: 10:46 AM CSN: [id number] [facility] ANES PRE-OPon 12-07-2020 ANES PRE-OP HNO ID: [id number] Author: Jace Rodney MD Service: Anesthesiology Author Type: Anesthesiologist Type: Anesthesia Preprocedure Evaluation Filed: 12/07/2020 7:10 AM Note Text: ANESTHESIOLOGY DAY OF SURGERY NOTE : 1965 Procedure(s) (LRB): ARTHROPLASTY REPLACE JOINT TOTAL KNEE (Left) Surgeon(s): Dina Roger MD Estimated body mass index is 30.73 kg/m? as calculated from the following: Height as of 11/27/20: 157.5 cm (5' 2 ). Weight as of 11/27/20: 76.2 kg (168 lb). Most recent hematocrit and potassium results: Hematocrit 47.0 11/27/2020 Potassium 4.8 11/27/2020 Relevant Problems No relevant active problems I - PHYSICAL EVALUATION AIRWAY Patient intubated: No. Tracheostomy tube not present Mallampati: II. TM distance: >3 FB. Neck ROM: full ROM without neurological symptoms. Mouth opening: adequate. Short neck: no. Thick neck: no DENTAL Dental findings: teeth intact. Additional exam findings: yes. CARDIOVASCULAR Normal cardiovascular observations. Rhythm: regular Rate: normal PULMONARY Normal pulmonary observations. Breath sounds clear to auscultation. II - ANESTHESIA PLAN ASA Score: 2 Anesthetic Plan: spinal NPO Status: adequate Monitoring plan: Standard ASA. Postoperative analgesic plan: multimodal analgesia, peripheral nerve catheter and peripheral nerve block. Anesthetic Risks, Benefits, Alternatives, Personnel Discussed. Consent obtained from: patient.Patient / Surrogate agrees to blood products: blood products not planned Significant changes in the patient condition since the History and Physical, not otherwise documented in primary service progress note: no. Potential Anesthesia issues that may suggest increased risk of complications or contraindication to planned procedure: none. Vitals Value Taken Time BP 150/78 12/07/20620 Pulse 74 12/07/20620 Resp 18 12/07/20620 Temp 36.7 ?C (98.1 ?F) 12/07/20620 SpO2 99 % 12/07/20620 Facility-Administere d Medications as of 12/07/2020 Medication Dose Route Frequency - lidocaine 10 mg/mL (1 %) 1-2 mg injection (XYLOCAINE) 0.1-0.2 mL INTRADERMAL PRN - lactated ringers iv infusion 5-30 mL/hr INTRAVENOUS CONTINUOUS - vancomycin iv piggyback 1 g in D5W 200 mL (VANCOCIN) 1 g INTRAVENOUS Pre-Op Once - ciprofloxacin iv piggyback 400 mg in D5W 200 mL (CIPRO) 400 mg INTRAVENOUS Pre-Op Once - tranexamic acid iv piggyback 1000 mg in NaCl 0.7% 100 mL (CYKLOKAPRON) 1,000 mg INTRAVENOUS Pre-Op Once - tranexamic acid iv piggyback 1000 mg in NaCl 0.7% 100 mL (CYKLOKAPRON) 1,000 mg INTRAVENOUS ONCE - [COMPLETED] acetaminophen 1,000 mg tab(s) (TYLENOL) 1,000 mg ORAL Pre-Op Once - [COMPLETED] promethazine 12.5 mg tab(s) (PHENERGAN) 12.5 mg ORAL Pre-Op Once - lactated ringers iv infusion 30 mL/hr INTRAVENOUS CONTINUOUS Outpatient Medications as of 12/07/2020 Medication Sig - Fluticasone Propionate 250 mcg/actuation DsDv Inhale as instructed as needed. - ESTROGEN,KAVITA/ME-TE STOSTERONE (ESTRATEST ORAL) Take by mouth once daily. - acetaminophen (TYLENOL) 500 mg tablet Take 2 tablets by mouth every 6 hours as needed. - TURMERIC ORAL Take by mouth once daily. (Patient not taking: Reported on 11/27/2020 ) - etodolac (LODINE) 400 mg tablet Take 1 tablet by mouth twice daily. I have interviewed and examined the patient. I have reviewed the medical record and/or the pre-anesthesia evaluation, pertinent labs, and test results. This contains updated information obtained within 48 hours of Surgery/Procedure. SIGNATURE: Jace Rodney MD PATIENT NAME: Mahesh Baxter DATE: December 07, 2020 TIME: 7:09 AM CSN: [id number] [facility] HISTORY PHYSICALon HISTORY PHYSICAL HNO ID: [id number] Author: Dina Roger MD Service: Orthopaedic Surgery Author Type: Physician Type: HANDP Filed: 12/07/2020 7:53 AM Note Text: UPDATED HISTORY AND PHYSICAL EXAMINATION SERVICE DATE: 12/07/2020 SERVICE TIME: 7:53 AM PHYSICAL EXAM MUST BE COMPLETED ON ADMISSION The History and Physical (completed in the past 30 days) has been reviewed and the patient has been examined. The contents accurately reflect the patient's condition with the following additions or revisions since the HANDP was completed. Examination indicates no changes. This HANDP can be found in the Electronic Medical Record dated. SIGNATURE: Dina Roger MD PATIENT NAME: Mahesh Baxter DATE: December 07, 2020 TIME: 7:53 AM [facility] NURSING PROGon 12-07-2020 NURSING PROG HNO ID: [id number] Author: Kenya Bella RN Service: ? Author Type: Registered Nurse Type: Nursing Progress Note Filed: 12/07/2020 1:07 PM Note Text: Nursing Progress Note Patient Name: Mahesh Baxter Patient Location: [address]42 Transfer Note: Patient transferred into room/unit PK3C30 in stable condition. Actions taken: No futher actions taken at this time. Will continue to monitor and check with patient. This note was completed by: Kenya Bella [facility] NURSING PROG HNO ID: [id number] Author: Queenie Grossman RN Service: Nursing Author Type: Registered Nurse Type: Nursing Progress Note Filed: 12/07/2020 6:23 AM Note Text: PATIENT EDUCATION TOPIC: PROCEDURE / SURGERY: Pre-op Teaching: Protocols PATIENT NAME: Mahesh Baxter PATIENT LOCATION: [facility] OR POOL/[facility] OR POOL READINESS TO LEARN COGNITIVE ABILITY: Alert and oriented MOTIVATION TO LEARN: Interested FAMILY SUPPORT: None - Unavailable/disinter ested INSTRUCTION PROVIDED TO: Patient PATIENT LEARNS BEST BY: Individual Instruction Verbal Instruction FACTORS AFFECTING LEARNING: None PHYSICAL LIMITATIONS AFFECTING LEARNING: None LEARNING RESPONSE DIAGNOSIS: ADULT: Well Adult PATIENT/FAMILY RESPONSE: Verbalizes understanding of: PRE-OPERATIVE INSTRUCTIONS-Correct action to take to follow pre-operative instructions METHOD OF INSTRUCTION: Individual instruction Verbal instruction FOLLOW-UP PLAN: Complete - No need for follow-up INSTRUCTIONAL AIDS USED: NA SUPPLEMENTAL MATERIAL PROVIDED TO PATIENT: None REFERRAL (RECOMMENDATION): None Electronically Signed By: Queenie Grossman [facility] OPERATIVE NOon 12-07-2020 OPERATIVE NO HNO ID: [id number] Author: Dina Roger MD Service: Orthopaedic Surgery Author Type: Physician Type: Operative Report Filed: 12/07/2020 10:25 AM Note Text: OPERATIVE NOTE PATIENT NAME: Mahesh Baxter LOG ID: [id number] Surgery Date: 12/07/2020 Surgeon(s): Surgeon(s) and Role: * Dina Roger MD - Primary Vacuum Cleaner Repairer(s): Pierce Foss PA-C - assistant head cashier Anton Cline PA-C- Second assist No qualified resident was available or present to assist. I/primary surgeon/proceduralis t performed the procedure with assistance. Physician Vacuum Cleaner Repairer closed and performed retraction necessary to complete case. The second assist performed prepping and retraction necessary to complete total knee replacement. , under direct supervision and the remainder of the procedure was performed by the primary surgeon/proceduralis t with assistance. Procedure(s): Procedure(s) (LRB): ARTHROPLASTY REPLACE JOINT TOTAL KNEE (Left) BMI: Estimated body mass index is 30.73 kg/m? as calculated from the following: Height as of 11/27/20: 157.5 cm (5' 2 ). Weight as of 11/27/20: 76.2 kg (168 lb). Anesthesia: Spinal Operative Time: Total operative time from wheels in to wheels out, including anesthesia time was * Missing case tracking time(s) * Incision Start: 8:16 AM Incision Stop: 9:40 AM Attestation: I was present for all of the critical portions of the operation and performed all critical portions. The resident/fellow/PA performed the closure under supervision, and assisted during the operation. I was immediately available for the duration of the entire case. Preop Diagnosis: Pre-Op Diagnosis Codes: * Primary osteoarthritis of left knee [M17.12] Postop Diagnosis: Same as Pre-Op Diagnosis Codes: * Primary osteoarthritis of left knee [M17.12] Findings: OA EBL: 150 cc Implants: [employer] Tritanium (uncemented) Femur: 4 CR Tibia: 4 Poly: 9 CS Patella: 29 asymmetric Problem List: ACTIVE PROBLEM LIST Carpal Tunnel Syndrome Other Affections of Shoulder Region, Not Elsewhere Classified Rotator Cuff (Capsule) Sprain Primary Osteoarthritis of Right Knee Primary Osteoarthritis of Left Knee OPERATIVE INDICATIONS: The patient has a long history of progressive left knee pain, arthritis, and degeneration. They has developed deformity in the left knee from predominantly medial wear and bone loss. Non-operative treatment and Physical Therapy have been attempted on the left, but have not improved or controlled the symptoms and pain that occurs during normal daily activities. Knee motion has also become limited and is restricting the patient. Left total knee arthroplasty was recommended. The risks, benefits and potential complications of the arthroplasty surgery were discussed with the patient in detail. Specific details of the surgical procedure, hospitalization, recovery, rehabilitation, and long-term precautions were also presented. Pre-operative teaching was provided. Implant/prosthesis selection was outlined, and the many options available were explained; the final choice will be made at the time of the procedure to match the anatomy and condition of the bone, ligaments, tendons, and muscles. The patient was seen by [facility] for pre-operative optimization, and risk assessment. Randi-operative blood management and the potential for blood transfusion were discussed with risks and options clearly outlined. Understanding of all topics was conveyed to me by the patient pre-operatively, and patient consent was given to proceed with the left total knee replacement. OPERATIVE PROCEDURE: The patient was identified and brought into the Operating Room by the anesthesia and nursing teams. Anesthesia was successfully performed. The patient was then positioned supine on the operating room table, and all bony prominences were padded. Intravenous antibiotic prophylaxis dosing was confirmed. A tourniquet was applied to the left upper thigh. A full knee exam was done after anesthesia was in full effect. The left leg was prepped and draped in the usual sterile fashion. A surgical time-out was performed immediately preceding the incision with all personnel in the operating room; the patient identity was again confirmed, the left knee-surgical site and extremity were identified and confirmed, X-rays were reviewed, and availability of the appropriate surgical equipment was established. The left knee was exsanguinated and exposed using a limited anterior-midline skin incision. Dissection was carried down through skin and subcutaneous tissue to the extensor mechanism with a scalpel. A median para-patellar arthrotomy was made to enter the knee space sharply. A large amount of normal appearing joint fluid was encountered and suctioned. The synovium was thickened, hypertrophic, and inflamed. A partial synovectomy was performed for expos (more content not included)... [facility] THERAPY NTon 12-07-2020 THERAPY NT HNO ID: [id number] Author: Italo Olmedo PT Service: Physical Therapy Author Type: Physical Therapist Type: Therapy (PT/OT/Speech/Resp) Filed: 12/07/2020 3:35 PM Note Text: Physical Therapy Evaluation SERVICE DATE: 12/07/2020 SERVICE TIME: 1325 to 1355 ROOM: [place] [address] Recommended Discharge Disposition: Home PT Anticipated Discharge Needs: Physical Assist at Home Physical Assist at Home for: Cleaning;Laundry;Loida ls;Shopping;Transpor tation Recommended Discharge Equipment: Wheeled Walker PT 6 Clicks Score: 19 Precautions/Activity Restrictions: Total Knee Replacement;Weight Bearing Restrictions;Bed/Belem ir Alarm;Fall Risk Precaution/Activity Restriction Comments: Educated on precautions and given handout. Extremity With Weight Bearing Restricted: Left Lower Extremity Left Lower Extremity Weight Bearing Status: WBAT Current Hospital Course: Pt is a 55 yo female who had a L TKR 12/07/20. Hx of R TKR March 2020. Reason for Hospital Admission: L TKR Relevant Past Medical History: OA, CTS Physical Therapy Problem List: Edema;Pain;Decreased Activity Tolerance;Decreased Range Of Motion;Decreased Strength;Functional Mobility Impairment;Balance Impaired;Safety Deficits Treatment Interventions: Education;Self Care / Home Management;Joint Mobility;Strengtheni ng;Functional Mobility Training;Balance Training Home Environment Patient Lives With: Spouse Assistance Available: PRN Entry To Home: No Stairs Number Of Stairs To Bed/Bath: 0 Tub/Shower Type: walk in shower Laundry: 1st floor, previously independent Equipment Owned: Wheeled Walker;Crutch(es);Gr ab Bars-Toilet;Grab Bars-Shower;Shower Chair;Dance Historian Prior Functional Level: Within Functional Limits CURRENT FUNCTIONAL STATUS: Most recent performance Current Functional Mobility Assist Level Additional Information Rolling Modified Independent Supine to Sit Modified Independent Sit to Supine Scooting Modified Independent Sit to Stand Contact Guard Assistance Stand to Sit Contact Guard Assistance Bed to Chair Toilet/Commode Minimal Assistance Gait Contact Guard Assistance Gait Device: Wheeled Walker Gait Distance (feet): 2x 10' Stairs Curb Step Car Transfer Blank downs indicate activity not attempted Gait Deviations Left Lower Extremity: Heel strike during initial stance decreased;Knee flexion during stance increased;Knee stability during stance phase decreased;Step length decreased;Stance time decreased;Weight bearing decreased General Deviations/Observati ons: Purnima decreased;Flexed trunk posture;Step length decreased Balance: Dynamic Sitting;Dynamic Standing Dynamic Sitting Balance: Good Patient accepts moderate challenge, able to maintain balance while picking up object off floor Dynamic Standing Balance: Fair Patient accepts minimal challenge, able to maintain balance while turning head/trunk Activity Tolerance: Sitting Activity;Standing Activity Sitting Activity: seated exercises, toileting, examination testing Sitting Activity Tolerance (in minutes): 15 Standing Activity: Gait WW Standing Activity Tolerance (in minutes): 5 JH-HLM: 6: Walk 10 steps or more Learning/Educational Needs: Discharge Plan;Equipment;Funct ional Activities/Mobility; Plan of Care;Precautions;Saf ety Goals for Plan of Care: Patient /Caregiver Goals: Go Home Goals: Patient will demonstrate progress with functional mobility to allow safe discharge to home with available support and/or physical assistance. Able to perform HEP with: Independent Ambulate with: Supervision Distance: 200 Device: Wheeled Walker Rehab Potential: Good Patient will be discontinued from Physical Therapy when no further skilled needs are identified in this setting. PLAN: PT Frequency: Twice daily Plan of Care developed with: Patient;Family () TREATMENT INTERVENTIONS: Therapy Diagnosis: Decreased activities of daily living (ADL);Muscle Weakness (generalized);Unstea diness on feet;Abnormalities of gait and mobility-other;Diffi culty walking-musculoskele carolin Interventions Provided: Evaluation;Therapeut ic Exercise (02627) $ Evaluation-Low (57008) Billed Units: 1 unit Therapeutic Exercise (13053) Treatment Minutes: 15 Pt completed supine and seated exercise programs. Pt given handouts and educated on HEP and precautions. Pt completed gait with WW from bed to toilet and toilet to chair. $ Therapeutic Exercise (65630) Billed Units: 1 unit Total Timed Code Treatment Minutes: 15 Total Treatment Time (minutes): 30 As the licensed Therapist, I was present and guided the care of the patient for the entire session on this date. Please see discipline specific clinical documentation flowsheet for complete details for this therapy evaluation/treatment . SIGNATURE: Amna Rollins [facility] PATIENT NAME: Mahesh Baxter DATE: December 07, 2020 TIME: 2:10 PM [facility] XR KNEE 2V AP/LAT LTon 12-07 XR KNEE 2V AP/LAT LT * * *Final Report* * * DATE OF EXAM: Dec 07 2020 10:07AM FVO 5206 - XR KNEE 2V AP/LAT LT / PROCEDURE REASON: Post-operative / post-procedure assessment, asymptomatic * * * * Physician Interpretation * * * * TECHNIQUE: Portable left knee 2 views HISTORY: Postop COMPARISON STUDY: 08/25/2020 RESULT: There are postsurgical changes from a total knee arthroplasty. There is subcutaneous air and a suprapatellar joint effusion. IMPRESSION: 1. Satisfactory appearance of a recent total arthroplasty. 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B Transcribe Date/Time: Dec 07 2020 2:40P Dictated by : YAMILETH SHEPPARD MD This examination was interpreted and the report reviewed and electronically signed by: YAMILETH SHEPPARD MD on Dec 07 2020 2:40PM EST [id number] [facility] PreOp/PreProc COVIDon 2020 SARS-CoV-2 (COVID-19) RNA DORIAN+probe Ql (Unsp spec) UPPER RESPIRATORY TRACT SWAB Normal [facility] Comment on above: Performed By: #### P OCOVD ####[address] [phone] SARS-CoV-2 (COVID-19) RNA DORIAN+probe Ql (Unsp spec) Negative for COVID19 (SARS CoV2) by RT-PCR or equivalent method. Normal Negative for COVID19 (SARS CoV2) by RT-PCR or equivalent method. [facility] Comment on above: Result Comment: This test was developed and its performance characteristics determined by [facility] [place]. This test has been authorized by FDA under an Emergency Use Authorization (EUA). This test has been validated in accordance with the FDA's Guidance Document Policy for Diagnostics Testing in Laboratories Certified to Perform High Complexity Testing under CLIA prior to Emergency use Authorization for Coronavirus Disease 2019 during the Public Health Emergency issued on May 11, 2019. Test performed by [facility], [facility] [place], [facility] [place] [address]. Performed By: #### P OCOVD ####[address] [phone] CBC and Differentialon 11-27 Abs Baso 0.04 k/uL Normal <0.11 [facility] Comment on above: Performed By: #### I LEXY, CMP, CBCDIF, FERR ####[address] [phone] Abs Schley 0.40 k/uL Normal <0.87 [facility] Comment on above: Performed By: #### I LEXY, CMP, CBCDIF, FERR ####[address] [phone] Abs Neut 2.27 k/uL Normal 1.45-7.50 [facility] Comment on above: Performed By: #### I LEXY, CMP, CBCDIF, FERR ####[facility] [phone] Absolute nRBC <0.01 Normal <0.01 [facility] Comment on above: Performed By: #### I LEXY, CMP, CBCDIF, FERR ####[facility] [phone] Basophils/100 WBC (Bld) 0.9 % Normal [facility] Comment on above: Performed By: #### I LEXY, CMP, CBCDIF, FERR ####[place] [address] [address] [phone] DTYPE Auto Diff Normal [facility] Comment on above: Performed By: #### I LEXY, CMP, CBCDIF, FERR ####[place] [address] [address] [phone] Eosinophils (Bld) [#/Vol] 0.11 10*3/uL Normal <0.46 [facility] Comment on above: Performed By: #### I LEXY, CMP, CBCDIF, FERR ####[place] [id number] [place] [phone] Eosinophils/100 WBC (Bld) 2.5 % Normal [facility] Comment on above: Performed By: #### I LEXY, CMP, CBCDIF, FERR ####[place] [address] [address] [phone] Erythrocyte distribution width (RBC) [Ratio] 12.9 % Normal 11.5-15.0 [facility] Comment on above: Performed By: #### I LEXY, CMP, CBCDIF, FERR ####[facility] [phone] Hematocrit (Bld) [Volume fraction] 47.0 % High 36.0-46.0 [facility] Comment on above: Performed By: #### I LEXY, CMP, CBCDIF, FERR ####[facility]ClevelP[address], [place] [phone] Hemoglobin (Bld) [Mass/Vol] 15.0 g/dL Normal 11.5-15.5 [facility] Comment on above: Performed By: #### I LEXY, CMP, CBCDIF, FERR ####[place] [address] [address]CS[address], [place] [phone] Lymphocytes (Bld) [#/Vol] 1.49 10*3/uL Normal 1.00-4.00 [facility] Comment on above: Performed By: #### I LEXY, CMP, CBCDIF, FERR ####[place] [address] [address], [place] [phone] Lymphocytes/100 WBC (Bld) 34.5 % Normal [facility] Comment on above: Performed By: #### I LEXY, CMP, CBCDIF, FERR ####[place] [address] [address], [place] [phone] MCH 30.2 pG Normal 26.0-34.0 [facility] Comment on above: Performed By: #### I LEXY, CMP, CBCDIF, FERR ####[place] [address] [address], [place] [phone] MCHC (RBC) [Mass/Vol] 31.9 g/dL Normal 30.5-36.0 [facility] Comment on above: Performed By: #### I LEXY, CMP, CBCDIF, FERR ####[place] [address] [address], [place] [phone] MCV (RBC) [Entitic vol] 94.8 fL Normal 80.0-100.0 [facility] Comment on above: Performed By: #### I LEXY, CMP, CBCDIF, FERR ####[place] [address] [address], [place] [phone] Monocytes/100 WBC (Bld) 9.3 % Normal [facility] Comment on above: Performed By: #### I LEXY, CMP, CBCDIF, FERR ####[facility]CSh[address] [phone] Neutrophils/100 WBC (Bld) 52.8 % Normal [facility] Comment on above: Performed By: #### I LEXY, CMP, CBCDIF, FERR ####[facility]level[address] [phone] NRBCs 0.0 /100 WBC Normal 0 [facility] Comment on above: Performed By: #### I LEXY, CMP, CBCDIF, FERR ####[place] [address] [address] [place] [phone] Platelet mean volume (Bld) [Entitic vol] 11.5 fL Normal 9.0-12.7 [facility] Comment on above: Performed By: #### I LEXY, CMP, CBCDIF, FERR ####[place] [address] [address] [place] [phone] Platelets (Bld) [#/Vol] 216 10*3/uL Normal 150-400 [facility] Comment on above: Performed By: #### I LEXY, CMP, CBCDIF, FERR ####[facility] [place] [phone] RBC (Bld) [#/Vol] 4.96 10*6/uL Normal 3.90-5.20 [facility] Comment on above: Performed By: #### I LEXY, CMP, CBCDIF, FERR ####[facility] [phone] WBC (Bld) [#/Vol] 4.32 10*3/uL Normal 3.70-11.00 [facility] Comment on above: Performed By: #### I LEXY, CMP, CBCDIF, FERR ####[facility]ClevelA[address] [phone] Comp Metabolic Panelon 11-27 Albumin [Mass/Vol] 4.7 g/dL Normal 3.9-4.9 [facility] Comment on above: Performed By: #### I LEXY, CMP, CBCDIF, FERR ####[place] [phone] ALP [Catalytic activity/Vol] 89 U/L Normal 34-123 [facility] Comment on above: Performed By: #### I LEXY, CMP, CBCDIF, FERR ####[place] [phone] ALT [Catalytic activity/Vol] 16 U/L Normal 7-38 [facility] Comment on above: Performed By: #### I LEXY, CMP, CBCDIF, FERR ####[place] [phone] Anion gap [Moles/Vol] 11 mmol/L Normal 9-18 [facility] Comment on above: Performed By: #### I LEXY, CMP, CBCDIF, FERR ####[place] [phone] AST [Catalytic activity/Vol] 23 U/L Normal 13-35 [facility] [facility] Comment on above: Performed By: #### I LEXY, CMP, CBCDIF, FERR ####[place] [phone] Bilirubin [Mass/Vol] 0.5 mg/dL Normal 0.2-1.3 [facility] Comment on above: Performed By: #### I LEXY, CMP, CBCDIF, FERR ####[place] [phone] Calcium [Mass/Vol] 10.1 mg/dL Normal 8.5-10.2 [facility] Comment on above: Performed By: #### I LEXY, CMP, CBCDIF, FERR ####[facility] [address]Sh[address] [place] [phone] Chloride [Moles/Vol] 101 mmol/L Normal 97-105 [facility] Comment on above: Performed By: #### I LEXY, CMP, CBCDIF, FERR ####[facility] [place] [phone] CO2 [Moles/Vol] 25 mmol/L Normal 22-30 [facility] Comment on above: Performed By: #### I LEXY, CMP, CBCDIF, FERR ####[place] [address] [address] [place] [phone] Creatinine [Mass/Vol] 0.90 mg/dL Normal 0.58-0.96 [facility] Comment on above: Performed By: #### I LEXY, CMP, CBCDIF, FERR ####[place] [address] [address] [place] [phone] eGFR- Amer. >60 Normal [facility] Comment on above: Performed By: #### I LEXY, CMP, CBCDIF, FERR ####[place] [address] [address] [place] [phone] eGFR-All Other Races >60 Normal [facility] Comment on above: Result Comment: eGFR (Estimated GFR) Units of measure: mL/min/1.73 meters squared eGFR is derived from the reexpressed MDRD Study equation using the following parameters: serum creatinine, age, gender and race. The creatinine assay has been calibrated to be traceable to IDMS. An eGFR <60 mL/min/1.73m2 for >3 months is consistent with chronic kidney disease. Refer to KDOQI guidelines for clinical interpretation. In patients with unstable renal function, e.g. those with acute kidney injury, the eGFR may not accurately reflect actual GFR. Performed By: #### I LEXY, CMP, CBCDIF, FERR ####[facility] [address] [place] [phone] Glucose [Mass/Vol] 91 mg/dL Normal 74-99 [facility] Comment on above: Result Comment: The [place] Diabetes Association (ADA) provides guidance for cutoff values for fasting glucose and random glucose. The ADA defines fasting as no caloric intake for at least 8 hours. Fasting plasma glucose results between 100 to 125 mg/dL indicate increased risk for diabetes (prediabetes). Fasting plasma glucose results greater than or equal to 126 mg/dL meet the criteria for diagnosis of diabetes. In the absence of unequivocal hyperglycemia, results should be confirmed by repeat testing. In a patient with classic symptoms of hyperglycemia or hyperglycemic crisis, random plasma glucose results greater than or equal to 200 mg/dL meet the criteria for diagnosis of diabetes. Reference: Standards of Medical Care in Diabetes 2016, [place] Diabetes Association. Diabetes Care. 2016.39(Suppl 1). Performed By: #### I LEXY, CMP, CBCDIF, FERR ####[facility] [place], [place] [phone] Potassium [Moles/Vol] 4.8 mmol/L Normal 3.7-5.1 [facility] Comment on above: Performed By: #### I LEXY, CMP, CBCDIF, FERR ####[facility] [place] [phone] Protein [Mass/Vol] 7.6 g/dL Normal 6.3-8.0 [facility] Comment on above: Performed By: #### I LEXY, CMP, CBCDIF, FERR ####[facility] [address] Av[address] [place] [phone] Sodium [Moles/Vol] 137 mmol/L Normal 136-144 [facility] Comment on above: Performed By: #### I LEXY, CMP, CBCDIF, FERR ####[facility] [address] Av[address]yn[address] [place] [phone] Urea nitrogen [Mass/Vol] 14 mg/dL Normal 7-21 [facility] Comment on above: Performed By: #### I LEXY, CMP, CBCDIF, FERR ####[facility] [address] Av[address] [place] [phone] Ferritinon 11-27-2020 Ferritin [Mass/Vol] 143.0 ng/mL Normal 14.7-205.1 [facility] Comment on above: Performed By: #### I LEXY, CMP, CBCDIF, FERR ####[facility] [address] [place], [place] [phone] HISTORY PHYSICALon HISTORY PHYSICAL HNO ID: [id number] Author: Lakisha Soriano APRN.HOLISTIC SPECIALIST Service: ? Author Type: Nurse Specialist Type: HANDP Filed: 11/27/2020 8:34 AM Note Text: HISTORY AND PHYSICAL EXAMINATION SERVICE DATE: 11/27/2020 SERVICE TIME: 8:32 AM PRIMARY CARE PHYSICIAN: Randall Kerr DO REASON FOR VISIT: Mahesh Baxter is a 55 year old female who is scheduled for Procedure: ARTHROPLASTY REPLACE JOINT TOTAL KNEE Left at the request of Dr. Dina Roger for consultation. My final recommendation will be communicated back to the requesting physician by way of shared medical record or letter. Subjective The patient has the following: ACTIVE PROBLEM LIST Carpal Tunnel Syndrome Other Affections of Shoulder Region, Not Elsewhere Classified Rotator Cuff (Capsule) Sprain Primary Osteoarthritis of Right Knee Primary Osteoarthritis of Left Knee CHIEF COMPLAINT: Patient stated I have left knee pain and will need surgery HPI: H/O 55 year old female stated she has had left knee pain for about A year. On pain scale, 7/10 aching, sharp pain. Consulted Dr. Roger, Xray Left Knee,Mri Left Knee, Dx with Primary Osteoarthritis Left Knee. REVIEW OF SYSTEMS: General: BMI 30.7. No weight loss, malaise or fevers. Neurological: No history of TIA's, stroke, HOLISTIC SPECIALIST tumor, impaired sensorium, hemiplegia, paraplegia or quadraplegia. No neurological symptoms or problems. Respiratory: No history of current cough or dyspnea, or pneumonia in the past 6 weeks. No history of respiratory/pulmonar y symptoms or problems. Cardiovascular: No history of HTN requiring medication, no history of angina, CHF, PA, cardiac surgery or stents. Denies rest pain, gangrene or revascularization/am putation for PVD. No history of cardiovascular symptoms or problems. GI: No history of GI symptoms or problems. No history of esophageal varices, recent ascites, or ETOH greater than 2 drinks per day. : No history of dysuria, frequency or incontinence, stones or chronic kidney disease. No difficulty urinating, nocturia > 1 time per night or hematuria. PRINCIPAL SYSTEMS ENGINEER: Negative for abnormal vaginal bleeding, abnormal vaginal discharge. Endocrine: No history of diabetes. Has not taken steroids within the past 30 days. No history of endocrinological symptoms or problems. Hematology: No history of bleeding or clotting disorder. Patient is not taking anti-coagulation or platelet medications. No history of hematological symptoms or problems. Oncology: No history of CA metastasis, chemo within 30 days, or radiotherapy within 90 days. No history of oncological symptoms or problems. Psych: No history of psychiatric symptoms or problems. Musculoskeletal: Negative for joint pain or swelling, back pain or muscle pain. Positive for: joint pain (left knee ). Skin: Negative for lesions, rash and itching. PAST MEDICAL HISTORY Diagnosis Date - Other affections of shoulder region, not elsewhere classified 08/09/2012 - Primary osteoarthritis of left knee - Primary osteoarthritis of right knee PAST SURGICAL HISTORY Procedure Laterality Date - PAST SURGICAL HISTORY OF 2003 total hysterectomy - PAST SURGICAL HISTORY OF 1992,1993 csections X2 FAMILY HISTORY Problem Relation Age of Onset - Hypertension Mother Social History Tobacco Use - Smoking status: Never Smoker - Smokeless tobacco: Never Used Vaping Use - Vaping Use: Never used Substance Use Topics - Alcohol use: Yes Comment: 2 drink per week - Drug use: No Prior to Admission medications as of 11/27/20 0752 Medication Sig Last Dose Taking acetaminophen (TYLENOL) 500 mg tablet Take 2 tablets by mouth every 6 hours as needed. Taking Yes Fluticasone Propionate 250 mcg/actuation DsDv Inhale as instructed as needed. Taking Yes ESTROGEN,KAVITA/ME-TE STOSTERONE (ESTRATEST ORAL) Take by mouth once daily. Taking Yes mupirocin (BACTROBAN) 2 % ointment Apply 0.5 inch with cotton swab (Q-tip) to each nostril in the morning and evening for 5 days prior to and including day of surgery. aspirin, enteric coated (ASPIRIN, ENTERIC COATED) 81 mg EC tablet Take 1 tablet by mouth twice daily. TURMERIC ORAL Take by mouth once daily. Patient not taking: Reported on 11/27/2020 Not Taking etodolac (LODINE) 400 mg tablet Take 1 tablet by mouth twice daily. No medication comments found. ALLERGIES Allergen Reactions - Penicillins Objective PHYSICAL EXAM: General: alert and oriented and healthy appearance. Pertinent negatives noted - not distressed. BMI 30.7. Skin: normal color, no rash or lesions. HEENT: EOM intact, pupils equal round and pupils reactive to light. Cardiovascular: regular rate and rhythm, normal S1 and S2, no rub, murmurs, or gallop. Pulse characterized as regular. Respiratory: normal breath sounds, no wheezes or crackles. No chest wall deformity or tenderness. Abdomen: bowel sounds present and soft. Pertinent negatives noted - not tender. Extremities: (more content not included)... Normal [facility] Iron and TIBCon 11-27-2020 Iron [Mass/Vol] 80 ug/dL Normal 41-186 [facility] Comment on above: Performed By: #### I LEXY, CMP, CBCDIF, FERR ####[facility] [place], [place] [phone] TIBC 372 ug/dL Normal 232-386 [facility] Comment on above: Performed By: #### I LEXY, CMP, CBCDIF, FERR ####[facility] [address] [place], [place] [phone] Transferrin Saturatn 22 % Normal 15-57 [facility] Comment on above: Performed By: #### I LEXY, CMP, CBCDIF, FERR ####[facility] [address] [place], [place] [phone] ALLIED HEALTHon 09-04-2020 ALLIED HEALTH HNO ID: [id number] Author: RT Ruiz(R) Service: ? Author Type: Wave Solder Offbearer Type: Allied Health Filed: 09/04/2020 11:41 AM Note Text: Radiology Service Progress Note PATIENT NAME: Mahesh Baxter DATE OF SERVICE: September 04, 2020 TIME: 11:41 AM PATIENT IDENTITY VERIFICATION COMPLETED USING TWO (2) IDENTIFIERS: Name and Date of confirmed by patient verbally and Name and Date of confirmed by identification band. FALL SCREENING: Has the patient had 2 falls in the last year or 1 fall with injury or currently using an Ambulatory Assistive Device (Walker, Cane, Wheelchair, Crutches, etc.)? No PATIENT GENDER DATA: Female. status: : No status: NO. PATIENT RELEVANT IMPLANT DATA REVIEWED: Yes RADIOLOGY DEPARTMENT: MR; Exam(s) Completed: Lower MSK: Knee, left PERIPHERAL IV DATA: Not applicable SIGNED BY: Nidhi Mcdermott MRI RT Ruiz(R) September 04, 2020 11:41 AM [facility] MRI KNEE WO IVCON LTon 09-04 MRI KNEE WO IVCON LT * * *Final Report* * * DATE OF EXAM: Sep 04 2020 11:43AM [facility] 0212 - MRI KNEE WO IVCON LT / PROCEDURE REASON: Acute medial meniscus tear of left knee, initial encounter * * * * Physician Interpretation * * * * EXAMINATION: MRI LEFT KNEE WITHOUT CONTRAST CLINICAL HISTORY: Internal derangement medial meniscus tear TECHNIQUE: Routine non-contrast MRI of the knee MQ: [id number] COMPARISON: 08/25/2020 RESULT: MENISCI: Medial Meniscus: Degenerative changes without a tear Lateral Meniscus: Degenerative changes without a tear LIGAMENTS: ACL: Intact PCL: Intact MCL: Intact LCL Complex: Intact CARTILAGE: Medial Femoral Condyle: Large area(s) of predominantly high grade (greater than 50% thickness) cartilage loss and or fissuring with smaller area(s) of full thickness cartilage loss and or fissuring Medial Tibial Plateau: Moderate sized area(s) of low grade (less than 50% thickness) partial thickness cartilage loss and or fissuring Lateral Femoral Condyle: Small area(s) of low grade (less than 50% thickness) partial thickness cartilage loss and or fissuring Lateral Tibial Plateau: Normal Patella: Large area(s) of predominantly high grade (greater than 50% thickness) cartilage loss and or fissuring with smaller area(s) of full thickness cartilage loss and or fissuring Trochlea: Moderate sized area(s) of predominantly low grade (less than 50% thickness) cartilage loss and or fissuring with smaller area(s) of high grade (greater than 50% thickness) cartilage loss and or fissuring TENDONS: The distal quadriceps and patellar tendons are intact. The popliteus tendon is intact. BONES AND MARROW: No evidence of fracture or bone marrow replacing process. MUSCLES: Muscle bulk and signal intensity are normal. JOINT FLUID AND SYNOVIUM: Small joint effusion. Mild synovitis. No Rodriguez's cyst. OTHER: No other significant abnormality identified. Localizer images: No additional findings. IMPRESSION: TRICOMPARTMENTAL OSTEOARTHRITIS, MOST PRONOUNCED IN THE PATELLOFEMORAL AND MEDIAL COMPARTMENTS DEGENERATIVE SIGNAL CHANGES IN THE MENISCI WITH NO DISCRETE TEAR Handbag Designer: [facility] Transcribe Date/Time: Sep 04 2020 11:56A Dictated by : POLLY MCKEON MD This examination was interpreted and the report reviewed and electronically signed by: POLLY MCKEON MD on Sep 04 2020 1:56PM EST [id number] [facility] Office Visit (ORAVON) MAHESH BAXTER I ([id number]) 1965 F Date Time Provider Department 08/25/20 9:15 AM DINA ROGER During your visit today, we recorded the following information about you: Dina Roger MD 08/25/2020 10:31 AM Signed RETURN ENCOUNTER Chief Complaint: Left Knee - Pt Lee Pop, weakness, knee giving out. Pain, Swelling. RIGHT KNEE - S/P TKA 5 months - Pt doing well. Doing extremely well and patient satisfied with outcome. HPI: Left Knee - Popped 08/06/20 Pain: worse AROM: worse Function: worse Date of Injury: 08/06/2020 Activity: ADLs, PT for S/P R TKA Severity: Moderate Left knee twisted around and felt a pop. Pain was localized to the medial aspect of the knee. Noted immediate swelling that is only mildly improved. She does report mechanical symptoms. These mechanical symptoms are interfering with her activities of daily living and her range of motion. No family history on file. ROS reviewed on [facility] form which is negative except HPI. Current Outpatient Medications Medication Sig - acetaminophen (TYLENOL) 500 mg tablet Take 2 tablets by mouth every 6 hours as needed. - aspirin, enteric coated (ASPIRIN, ENTERIC COATED) 81 mg EC tablet Take 1 tablet by mouth twice daily. - TURMERIC ORAL Take by mouth once daily. - etodolac (LODINE) 400 mg tablet Take 1 tablet by mouth twice daily. - Fluticasone Propionate 250 mcg/actuation DsDv Inhale as instructed as needed. - ESTROGEN,KAVITA/ME-TE STOSTERONE (ESTRATEST ORAL) Take by mouth once daily. No current facility-administere d medications for this visit. ALLERGIES Allergen Reactions - Penicillins Allergies, medications, past surgical history, family history and past medical history were reviewed per this encounter. Physical Examination: Region: Knee General Appearance: Appears healthy, well-nourished, no deformities. Left Exam: AROM: decreased flexion PROM: decreased flexion Point Tenderness location: medial jointline and lateral jointline Swelling/Effusion: Mild Stability: normal Muscle Strength: normal Sensation:normal Reflexes:normal Special Tests: Glenys's positive Skin: normal Right Exam: AROM: normal PROM: normal Point Tenderness location: none Swelling/Effusion: none Stability: normal Muscle Strength: normal Sensation:normal Reflexes:normal Special Tests: None Skin: normal Images have been reviewed and discussed with patient. Left knee x-rays show maintained joint space without any significant spurring. Assessment and Plan: Left knee medial meniscus tear, acute MRI to evaluate for medial meniscus tear in the setting of acute injury with ongoing mechanical symptoms that are interfering with activities of daily living. This is justified for preoperative planning and given mechanism of injury and current symptoms. Follow up after MRI Right knee is 5 months out doing extremely well. Continue with home exercise programming Dina Roger MD Sports Medicine/Orthopaedic Surgery Referring Provider: DINA ROGER [[id number]] Allergies As of Date: 08/25/2020 Noted Allergy Reaction PENICILLINS 12/05/2008 Date Reviewed: 08/25/2020 Reviewed by: Jaren Manjarrez RN - Fully Assessed Reason for Visit: Established Patient [175] Knee Pain [132] Swelling [205] Post Op [174] Primary Visit Diagnosis:Acute pain of left knee [M25.562] Other Visit Diagnoses:Arthritis of right knee [M17.11] Acute medial meniscus tear of left knee, initial encounter [S83.242A] Order(s):etodolac (LODINE) 400 mg tabletTake 1 tablet by mouth twice daily as needed.Disp: 40 tabletRfl: 0 MRI KNEE WO IVCON LT [[id number]] Order #: [id number] FUTURE Prescriptions as of 08/25/2020 Sig: ETODOLAC 400 MG TABLET Take 1 tablet by mouth twice * ACETAMINOPHEN 500 MG TABLET Take 2 tablets by mouth every* ASPIRIN 81 MG TABLET,DELAYED * Take 1 tablet by mouth twice * TURMERIC ORAL Take by mouth once daily. ETODOLAC 400 MG TABLET Take 1 tablet by mouth twice * FLUTICASONE PROPIONATE 250 MC* Inhale as instructed as need* ESTRATEST ORAL Take by mouth once daily. Problem List As Of Date 08/25/2020 Noted Resolved Carpal Tunnel Syndrome [G56.00] 12/05/2008 Other affections of shoulder region, not elsewh*08/09/2012 Rotator cuff (capsule) sprain [S43.429A] 12/18/2012 Primary osteoarthritis of right knee [M17.11] Arthritis of knee [M17.10] 04/01/2020 04/02/2020 Prescriptions ordered this encounter Disp Refills Start End ETODOLAC 400 MG TABLET 40 t* 0 08/25/2020 09/24/2020 Route: ORAL Sig: Take 1 tablet by mouth twice daily as needed. Disposition: Return for Virtual Visit Follow Up. Following MRI. Follow-up and Disposition History Recorded Encounter Status:Closed by DINA ROGER on 08/25/20 Normal [facility] XR KNEE 4V AP/PA BOTH+LAT/ME R LTon 08-25-2020 XR KNEE 4V AP/PA BOTH+LAT/CICI LT * * *Final Report* * * DATE OF EXAM: Aug 25 2020 8:52AM AFR 5202 - XR KNEE 4V AP/PA BOTH+LAT/CICI LT / PROCEDURE REASON: Acute pain of left knee * * * * Physician Interpretation * * * * HISTORY: Acute pain of left knee . CHRONIC PAIN LEFT KNEE HISTORY OF RIGHT KNEE REPLACEMENT TECHNIQUE: XR KNEE 4V AP/PA BOTH+LAT/CICI LT Laterality: LEFT Views: 4 COMPARISON: 06/23/2020 RESULT: Minimal lateral compartment narrowing. Small patellofemoral osteophytes. Small joint effusion. No other significant abnormality. ----- IMPRESSION: NO ACUTE OSSEOUS ABNORMALITY OTHER FINDINGS DESCRIBED Handbag Designer: ALBINA Transcribe Date/Time: Aug 25 2020 10:07A Dictated by : GENE CARMONA MD This examination was interpreted and the report reviewed and electronically signed by: GENE CARMONA MD on Aug 25 2020 10:07AM EST [id number] CN Normal [facility] CNPNon 08-07-2020 CNPN Telephone (SPHTB) MAHESH BAXTER I ([id number]) 1965 F Date Time Provider Department 08/07/20 JAREN MANJARREZ [facility] During your visit today, we recorded the following information about you: Jaren Manjarrez RN 08/07/2020 4:41 PM Signed Advised pt to DONA, and call next week for earlier appt. If needed. XR of Left KNee ordered. Dear Dr Roger, ? I have an appointment scheduled to see you in office August 25 for my tkr follow up. Between now and then I have an extremely hectic schedule, so here is my dilemma... I am 99.9 percent positive that I have a tear in the opposite knee. I heard and felt it pop, felt slight pain initially and now the intensity comes and goes. Same exact pains and locations as the other. Difference is this time, immediately I began icing, elevating, wrapping it and taking anti inflammatory. I have crutches if necessary and can stretch as needed. I know it's not broken, but fortunately/ unfortunately feel same as what happened with first knee. My question is, if I am doing everything correctly, can I wait until my appointment to see you? Will I need to set up a longer appointment/X-ray? And did you have money riding on how long it would take for this to happen?jk ? Thank you, Mahesh Allergies As of Date: 08/07/2020 Noted Allergy Reaction PENICILLINS 12/05/2008 Date Reviewed: 06/23/2020 Reviewed by: Jaren (Rn) KUMAR Manjarrez - Fully Assessed Reason for Visit: Appointment [186] Aesthetics Instructor - Other [3602] Radiology XR [1491] Primary Visit Diagnosis:Acute pain of left knee [M25.562] Order(s):XR KNEE GENERAL 4V AP BOTH/PA BOTH/LAT/MERC LT [[id number]] Order #: [id number] FUTURE Prescriptions as of 08/07/2020 Sig: ACETAMINOPHEN 500 MG TABLET Take 2 tablets by mouth every* ASPIRIN 81 MG TABLET,DELAYED * Take 1 tablet by mouth twice * TURMERIC ORAL Take by mouth once daily. ETODOLAC 400 MG TABLET Take 1 tablet by mouth twice * FLUTICASONE PROPIONATE 250 MC* Inhale as instructed as need* ESTRATEST ORAL Take by mouth once daily. Problem List As Of Date 08/07/2020 Noted Resolved Carpal Tunnel Syndrome [G56.00] 12/05/2008 Other affections of shoulder region, not elsewh*08/09/2012 Rotator cuff (capsule) sprain [S43.429A] 12/18/2012 Primary osteoarthritis of right knee [M17.11] Arthritis of knee [M17.10] 04/01/2020 04/02/2020 Encounter Status:Closed by JAREN MANJARREZ on 08/07/20 [facility] 06-23-2020 [facility] Office Visit (ORAVON) MAHESH BAXTER I ([id number]) 1965 F Date Time Provider Department 06/23/20 10:00 AM DINA ROGER During your visit today, we recorded the following information about you: Dina Roger MD 06/23/2020 9:54 AM Signed GLOBAL/POSTOP ENCOUNTER Chief Complaint: s/p 2 month TKA - Right Mahesh Baxter is a 54 year old year old female who returned today for 9 weeks post op: R Knee TKA. HPI: Pt states Lodine is still v. Beneficial - w/o Knee aches - all joints do feel better. Pain: Tolerable Function: WB, Decreased Flexion Therapy: HEP ROS reviewed Allergies, medications, past surgical history and past medical history were reviewed per this encounter. Physical Examination: Region: Knee Right Knee Exam: Incision: healing without evidence of infection AROM: 0-120 (left is 0-130) PROM: decreased flexion Swelling/Effusion: none Stability: normal Muscle Strength: decreased XR: stable appearing hardware with anatomic replacement without complication. Assessment and Plan: Pt very well at 2 months Cont ROM and strengthening. Cont HEP. Lodine written, further prescriptions per PCM to monitor kidney function F/u in 2 months Virtual or in person, no XR unless issue Dina Roger MD Sports Medicine/Orthopaedic Surgery Referring Provider: DINA ROGER [[id number]] Allergies As of Date: 06/23/2020 Noted Allergy Reaction PENICILLINS 12/05/2008 Date Reviewed: 06/23/2020 Reviewed by: Jaren (Rn) KUMAR Manjarrez - Fully Assessed Reason for Visit: Post Op [174] Primary Visit Diagnosis:Primary osteoarthritis of right knee [M17.11] Order(s):etodolac (LODINE) 400 mg tabletTake 1 tablet by mouth twice daily.Disp: 60 tabletRfl: 0 Prescriptions as of 06/23/2020 Sig: ETODOLAC 400 MG TABLET Take 1 tablet by mouth twice * ACETAMINOPHEN 500 MG TABLET Take 2 tablets by mouth every* ASPIRIN 81 MG TABLET,DELAYED * Take 1 tablet by mouth twice * TURMERIC ORAL Take by mouth once daily. ETODOLAC 400 MG TABLET Take 1 tablet by mouth twice * FLUTICASONE PROPIONATE 250 MC* Inhale as instructed as need* ESTRATEST ORAL Take by mouth once daily. Problem List As Of Date 06/23/2020 Noted Resolved Carpal Tunnel Syndrome [G56.00] 12/05/2008 Other affections of shoulder region, not elsewh*08/09/2012 Rotator cuff (capsule) sprain [S43.429A] 12/18/2012 Primary osteoarthritis of right knee [M17.11] Arthritis of knee [M17.10] 04/01/2020 04/02/2020 Prescriptions ordered this encounter Disp Refills Start End ETODOLAC 400 MG TABLET 60 t* 0 06/23/2020 07/23/2020 Route: ORAL Sig: Take 1 tablet by mouth twice daily. Disposition: Return in about 2 months (around 08/23/2020) for Virtual or in peson. Follow-up and Disposition History Recorded Encounter Status:Closed by DINA ROGER MD on 06/23/20 Normal [facility] XR KNEE 3V AP/LAT/MERCHANT R Ton 06-23-2020 XR KNEE 3V AP/LAT/MERCHANT RT * * *Final Report* * * DATE OF EXAM: Jun 23 2020 9:18AM AFR 5209 - XR KNEE 3V AP/LAT/MERCHANT RT / PROCEDURE REASON: Primary osteoarthritis of right knee * * * * Physician Interpretation * * * * EXAMINATION: XR KNEE 3V AP/LAT/MERCHANT RT PATIENT/TECHNOLOGIST PROVIDED HISTORY: 3 MONTH POST OP FOLLOW UP RT KNEE CLINICAL INFORMATION: 54 years old Female with Primary osteoarthritis of right knee TECHNIQUE: XR KNEE 3V AP/LAT/MERCHANT RT Laterality: RIGHT Number of different views (projections): 3 COMPARISON: 04/21/2020. RESULT: Postoperative changes of right total knee arthroplasty and patellar resurfacing. The hardware is intact without surrounding lucency. Small foci of mineralization at the superior aspect of the patella, unchanged. A small suprapatellar effusion. Reduced soft tissue swelling at the anterior aspect of the knee. IMPRESSION: RIGHT TOTAL KNEE ARTHROPLASTY IS INTACT. 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B Transcribe Date/Time: Jun 23 2020 10:22A Dictated by : GEOVANNY RODRIGEZ MD This examination was interpreted and the report reviewed and electronically signed by: LINO RIOS MD on Jun 23 2020 2:27PM EST [id number] CN Normal [facility] Basic Metabolic Panlon 04-02 Anion gap [Moles/Vol] 11 mmol/L Normal 9-18 [facility] Comment on above: Performed By: #### C BC, BMP ####[place] [phone] Calcium [Mass/Vol] 8.5 mg/dL Normal 8.5-10.5 [facility] Comment on above: Performed By: #### C BC, BMP ####[place] [phone] Chloride [Moles/Vol] 98 mmol/L Normal 98-110 [facility] Comment on above: Performed By: #### C BC, BMP ####[place] [phone] CO2 [Moles/Vol] 23 mmol/L Normal 23-32 [facility] Comment on above: Performed By: #### C BC, BMP ####[place] [phone] Creatinine [Mass/Vol] 0.82 mg/dL Normal 0.70-1.40 [facility] Comment on above: Performed By: #### C BC, BMP ####[place] [phone] eGFR- Amer. >60 Normal >60 [facility] Comment on above: Performed By: #### C BC, BMP ####[place] [phone] eGFR-All Other Races >60 Normal >60 [facility] Comment on above: Performed By: #### C BC, BMP ####[place] [phone] Glucose [Mass/Vol] 116 mg/dL High 65-100 [facility] Comment on above: Performed By: #### C BC, BMP ####[place] [phone] Potassium [Moles/Vol] 3.9 mmol/L Normal 3.5-5.0 [facility] Comment on above: Performed By: #### C BC, BMP ####[place] [phone] Sodium [Moles/Vol] 132 mmol/L Normal 132-148 [facility] Comment on above: Performed By: #### C BC, BMP ####[place] [phone] Urea nitrogen [Mass/Vol] 10 mg/dL Normal 8-25 [facility] Comment on above: Performed By: #### C BC, BMP ####[place] [phone] CBCon 04-02-2020 Absolute nRBC <0.01 Normal <0.01 [facility] Comment on above: Performed By: #### C BC, BMP ####[place] [phone] Erythrocyte distribution width (RBC) [Ratio] 12.8 % Normal 11.5-15.0 [facility] Comment on above: Performed By: #### C BC, BMP ####[place] [phone] Hematocrit (Bld) [Volume fraction] 34.3 % Low 36.0-46.0 [facility] Comment on above: Performed By: #### C BC, BMP ####[place] [phone] Hemoglobin (Bld) [Mass/Vol] 11.9 g/dL Normal 11.5-15.5 [facility] Comment on above: Performed By: #### C BC, BMP ####[place] [phone] MCH 31.3 pG Normal 26.0-34.0 [facility] Comment on above: Performed By: #### C BC, BMP ####[place] [phone] MCHC (RBC) [Mass/Vol] 34.7 g/dL Normal 30.5-36.0 [facility] Comment on above: Performed By: #### C BC, BMP ####[address] [phone] MCV (RBC) [Entitic vol] 90.3 fL Normal 80.0-100.0 [facility] Comment on above: Performed By: #### C BC, BMP ####[address] [phone] Platelet mean volume (Bld) [Entitic vol] 11.2 fL Normal 9.0-12.7 [facility] Comment on above: Performed By: #### C BC, BMP ####[address] [phone] Platelets (Bld) [#/Vol] 167 10*3/uL Normal 150-400 [facility] Comment on above: Performed By: #### C SOLANGE, BMP ####[address] [phone] RBC (Bld) [#/Vol] 3.80 10*6/uL Low 3.90-5.20 [facility] Comment on above: Performed By: #### C SOLANGE, BMP ####[address] [phone] WBC (Bld) [#/Vol] 8.17 10*3/uL Normal 3.70-11.00 [facility] Comment on above: Performed By: #### C SOLANGE, BMP ####[address] [phone] CNDSon 04-02-2020 CNDS HNO ID: [id number] Author: Dina Roger Service: Orthopaedic Surgery Author Type: Physician Type: Discharge Summary Filed: 04/03/2020 9:48 AM Note Text: DISCHARGE SUMMARY PATIENT NAME: Mahesh Baxter ADMISSION DATE: 04/01/2020 DISCHARGE DATE: 04/02/2020 Attending Physician: Dina Roger Code Status: Not on file Highest Readmission Risk Score: 8 The 30 day readmissions risk score is derived from an internally validated risk model which evaluates patient level characteristics, utilization history, medication orders and lab results up until the day of discharge. Patients with a score of 40 or above are considered highest risk for readmission. Specific patient level drivers will be listed at the bottom of the summary. Reason for Hospitalization: Active Problems: * No active hospital problems. * Resolved Problems: Arthritis of knee Admitting Diagnosis: Knee Advanced Degenerative Joint Disease Discharge Diagnosis: Same as admitting Operations During Hospitalization: Right total knee arthroplasty Procedures During Hospitalization: peripheral nerve block Consultations: Physical Therapy Case Management Pain Management Occupational therapy Treatment Team: Attending Provider: Dina Roger [facility] Course: The patient is a 54 year old @male@ who has been followed by Dr. Dina Roger in clinic for DJD right knee. It was determined she would benefit from surgery. The procedure, its risks, benefits, and potential complications were discussed in detail with the patient prior to surgery. Understanding of all topics was conveyed by the patient, and consent was given for surgery. The patient was electively admitted on 04/01/2020. Surgery was scheduled and on 04/01/2020 she underwent a Procedure(s) (LRB): ARTHROPLASTY REPLACE JOINT TOTAL KNEE (Right) with Block Regional - Extremity Lower. The procedure was tolerated well and she was sent to the post operative recovery room in stable condition, where she also did well. Post operative x-rays in the recovery room showed intact hardware. She was subsequently sent to her hospital room for postoperative management. Once on the floor her postoperative course was unremarkable and she did well. Her diet was advanced which she tolerated. Her pain was well controlled on oral, IV and Peripheral nerve block; this was eventually transitioned to oral medication alone prior to discharge. She worked with Physical and Occupational Therapy starting on POD#0 who recommended she be discharged home with Home health care. Her dressing remained clean dry and intact throughout her stay. She remained afebrile with stable vital signs throughout her stay. She was stable for discharge to Home with Home Health Care on POD#1. Complete and comprehensive discharge instructions were provided to the patient as well as necessary prescriptions. The patient had no further questions and was advised to call with any questions, concerns, or problems. Transitions of Care Critical Issues: NEW BASELINE FOR PATIENT: altered mobility, pain Patient was hemodynamically stable postoperatively. Discharge Antibiotics: Prior to surgery the patient was treated with antibiotics and continued with antibiotics 24 hours postoperatively Transfers: PACU and then to the hospital surgical floor when PACU criteria was met. DVT Prophylaxis: Aspirin 81mg BID x 30 days total Pain Control: Oral narcotics Complications: Continued throughout the hospital course without complications. LABS AND PROCEDURES PENDING AT DISCHARGE: No pending results. Relevant labs included: Recent Labs 04/02/20 0806 HB 11.9 HCT 34.3* No new labs Patient Condition @ Discharge: Stable Discharge Disposition: Home with Home Health Care PHYSICAL EXAM (CHOOSE FIRST BLANK IF NOT LAST DAY PROGRESS NOTE): Discharge Physical Exam: VITAL SIGNS: BP 140/52 Pulse 86 Temp 36.9 ?C (98.4 ?F) (Oral) Resp 18 Ht 160 cm (5' 2.99 ) Wt 73 kg (160 lb 15 oz) SpO2 100% BMI 28.52 kg/m? GENERAL: Alert, no distress, cooperative EXTREMITIES: Normal exam of the extremities NEURO: Negative PULSES: 2+ dorsalis pedis Information Provided to Patient: all instructions given to the patient verbally and written for patient and staff for DC home Activity: Weight Bearing As Tolerated Diet: Resume pre-hospital diet Wound/Surgical Site Care: ALLERGIES Allergen Reactions Penicillins Discharge Medications: Discharge Medication List as of 04/02/2020 4:19 PM START taking these medications acetaminophen (TYLENOL) 500 mg tablet Take 2 tablets by mouth every 6 hours as needed. Med Update aspirin, enteric coated (ASPIRIN, ENTERIC COATED) 81 mg EC tablet Take 1 tablet by mouth twice daily. Normal, Disp-60 tablet, R-0, Long-term oxyCODONE IR (ROXICODONE) 5 mg immediate release tablet Take 1-2 tablets by mouth every 6 hours as needed for up to 5 days., Starting Shea (more content not included)... [facility] CONSULT PROGon 04-02-2020 CONSULT PROG HNO ID: [id number] Author: Arlyn Cazares Service: Pain Management Author Type: Nurse Practitioner Type: Consult Progress Note Filed: 04/02/2020 11:33 AM Note Text: PERIPHERAL NERVE CATHETER PROGRESS NOTE PATIENT NAME: Mahesh Baxter SERVICE DATE: 04/02/2020 SERVICE TIME: 09:18 AM ASSESSMENT Mahesh Baxter is a 54 year old female who is POD# 1, S/P R TKA with R adductor placed to aid in post op pain control. Ms. Baxter is OOB to chair, working with PT, she reports well controlled RLE pain. Last night pt felt pressure on R thigh and asked for PNC to be removed. RLE PNC site without signs or symptoms of infection, no erythema, tenderness, drainage, or warmth. RLE sensory and motor WNL to surgery PLAN/Recs: Continue pain regimen per Ortho The plan was discussed in detail with patient +/- family, bedside RN, [facility] staff and primary service, who expressed agreement, understanding and comfort with the plan. [facility] will sign off and defer further management to primary team. If pain worsens or difficulties arise please reconsult [facility]MS. Thank you for including us in her care. SUBJECTIVE CHIEF COMPLAINT: Post op pain PRIMARY SERVICE: Ortho INTERVAL HPI: Mahesh Baxter is a 54 year old female who is POD# 1, S/P R TKA with R adductor placed to aid in post op pain control. Pain level is 2 at rest 5 with ambulation on a scale of 0-10. Is the patient tolerating Physical Therapy?: Yes Pain at surgical site? Yes, minimal Character: aching Duration: intermittent Radiation: No Relieved: Yes - PO Pain medications Is patient satisfied with pain control: yes Overnight Events: None Overnight Pain Interventions: No Allergy: ALLERGIES Allergen Reactions - Penicillins MEDICATIONS: Adjuvant Pain Medication: See below. Current Facility-Administere d Medications Medication Dose Route Frequency - oxyCODONE IR 5-10 mg tab(s) (ROXICODONE) 5-10 mg ORAL q 3 H PRN - acetaminophen 1,000 mg tab(s) (TYLENOL) 1,000 mg ORAL q 8 H - ondansetron 4 mg tab(s) (ZOFRAN) 4 mg ORAL q 6 H PRN Or - ondansetron (PF) 4 mg injection (ZOFRAN) 4 mg INTRAVENOUS q 6 H PRN - magnesium hydroxide 400 mg/5 mL 30 mL (MOM) 30 mL ORAL DAILY PRN - [START ON 04/03/2020] bisacodyl EC 10 mg tab(s) (DULCOLAX) 10 mg ORAL DAILY - aluminum-magnesium hydroxide-simethicon e 200-200-20 mg/5 mL 30 mL (MAALOX,MYLANTA,MAG- AL PLUS) 30 mL ORAL q 2 H PRN - ascorbic acid (vitamin C) 500 mg tab(s) (VITAMIN C) 500 mg ORAL BID w MEALS - docusate sodium 100 mg cap(s) (COLACE) 100 mg ORAL BID - NaCl 0.9% iv infusion 75 mL/hr INTRAVENOUS CONTINUOUS - morphine 2 mg injection 2 mg INTRAVENOUS q 2 H PRN - potassium chloride ER 20-40 mEq tab(s) (K-DUR, KLOR-CON) 20-40 mEq ORAL PRN Or - potassium chloride iv piggyback 20 mEq/100 mL 20 mEq INTRAVENOUS PRN - cyclobenzaprine 10 mg tab(s) (FLEXERIL) 10 mg ORAL BID - aspirin, enteric coated 81 mg tab(s) 81 mg ORAL BID - keTORolac 15 mg injection (TORADOL) 15 mg INTRAVENOUS q 6 H OBJECTIVE: PHYSICAL EXAM: Patient Vitals for the past 3 hrs: BP Temp Temp src Pulse Resp SpO2 04/02/20 1058 140/52 36.9 ?C (98.4 ?F) Oral 86 18 100 % Affect: awake, alert and oriented General Impression: appears comfortable Catheter site is clean, non-tender and dressing intact. Sensory exam: Surgical limb: Right Lower Extremity: intact Other limb: intact Motor Exam: Surgical limb: Right Lower Extremity: intact Other limb: intact Respiratory Exam: Respirations: Breathing appears normal Thoracostomy tube?: No Gastrointestinal Exam: Abdomen: not assessed NG?: No DATA: Lab Results Hemoglobin 11.9 04/02/2020 Hematocrit 34.3 04/02/2020 Platelet Count 167 04/02/2020 Discussed the patient?s progress and plan of care with Dr. Glasgow. SIGNATURE: Arlyn Cazares APRN.CNP PATIENT NAME: Mahesh Baxter DATE: April 02, 2020 TIME: 11:28 AM PAGER/CONTACT #: [facility] [phone] [facility] NURSING PROGon 04-02-2020 NURSING PROG HNO ID: [id number] Author: Tanya (Rn) KUMAR Liriano Service: Nursing Author Type: Registered Nurse Type: Nursing Progress Note Filed: 04/02/2020 3:30 AM Note Text: Nursing Progress Note Patient Name: Mahesh Baxter [facility] [place] [id number] Daily Note: 2119: AANDOx3. Pt in 12/20 pain. PRN and scheduled pain meds given per MAY. Ice pack applied to right knee. 2214: Pt up to bedside commode to void. While getting up, medication cup with a pill fell on to floor. Per pt, I think it was my muscle relaxer that fell. New flexeril pill pulled from the pyxis. When room was searched, pill was not found. This RN and Ilsa RN expressed concern about a possible double dose if the patient took an additional flexeril and it was not the pill that fell on the floor. Pt stated that she was comfortable and did not want to take an additional muscle relaxer in case of potential double dose. 2 Flexeril pills wasted by this RN and Ilsa RN in xis. 0320: Flexeril pill found in pt bedsheets. Wasted per policy. This note was completed by: Tanya Liriano, KUMAR [facility] THERAPY NTon 04-02-2020 THERAPY NT HNO ID: [id number] Author: Paulina (Pt) Elizabeth Service: Physical Therapy Author Type: Physical Therapist Type: Therapy (PT/OT/Speech/Resp) Filed: 04/02/2020 3:14 PM Note Text: Physical Therapy Treatment SERVICE DATE: 04/02/2020 SERVICE TIME: 1335 to 1420 ROOM: [place] [address] Recommended Discharge Disposition: Home PT Anticipated Discharge Needs: Physical Assist at Home Physical Assist at Home for: Laundry;Cleaning;Loida ls;Shopping;Transpor tation Recommended Discharge Equipment: To Be Determined PT 6 Clicks Score: 24 Precautions/Activity Restrictions: Fall Risk;Bed/Chair Alarm;Lines/Tubes/Dr peterson;Total Knee Replacement;Weight Bearing Restrictions Precaution/Activity Restriction Comments: may turn to operative side Extremity With Weight Bearing Restricted: Right Lower Extremity Right Lower Extremity Weight Bearing Status: WBAT Current Hospital Course: s/p R TKR on 04/01/20 Reason for Hospital Admission: Pt admitted for R TKR Relevant Past Medical History: R OA, CTS Response to Therapy Interventions: Good participation in activities, Pain Physical Therapy Problem List: Safety Deficits;Decreased Activity Tolerance;Decreased Strength;Functional Mobility Impairment;Balance Impaired;Pain Treatment Interventions: Education;Joint Mobility;Strengtheni ng;Functional Mobility Training;Balance Training Home Environment Patient Lives With: Spouse Assistance Available: PRN Entry To Home: No Stairs Number Of Stairs To Bed/Bath: 0 Tub/Shower Type: walk in shower Laundry: 1st floor Equipment Owned: Wheeled Walker;Crutch(es);Gr ab Bars-Bed;Grab Bars-Toilet;Grab Bars-Shower;Shower Chair;Dance Historian Prior Functional Level: Within Functional Limits Prior Functional Level Comments: Ind ambulator using crutches prn, ind with ADL's, and IADL's Patient Report: R knee pain. CURRENT FUNCTIONAL STATUS: Most recent performance Current Functional Mobility Assist Level Additional Information Rolling Modified Independent Supine to Sit Modified Independent Sit to Supine Verbal Cues Only Scooting Supervision Sit to Stand Stand By Assistance Stand to Sit Stand By Assistance Bed to Chair Toilet/Commode Gait Stand By Assistance Gait Device: Wheeled Walker Gait Distance (feet): 11' and 200' Stairs Verbal Cues Only Stairs Device: Rail(B rails) Number of Stairs: 4(step to gait pattern.) Curb Step Car Transfer Blank downs indicate activity not attempted Gait Deviations Right Lower Extremity: Heel strike during initial stance decreased;Push off during terminal stance decreased;Stance time decreased;Step length decreased;Knee stability during stance phase decreased;Weight bearing decreased General Deviations/Observati ons: Antalgic gait;Purnima decreased;Flexed trunk posture;Step length decreased(pt did reciprocal gait pattern.) Balance: Dynamic Standing Static Sitting Balance: Good Patient able to maintain balance without handhold support, limited postural sway Static Standing Balance: Fair Patient able to maintain balance with handhold support, may require occasional minimal assistance Dynamic Standing Balance: Fair Patient accepts minimal challenge, able to maintain balance while turning head/trunk Activity Tolerance: Standing Activity Standing Activity: ww use for gait; Stair training Standing Activity Tolerance (in minutes): 12 JH-HLM: 7: Walk 25 feet or more Learning/Educational Needs: Discharge Plan Goals for Plan of Care: Patient /Caregiver Goals: Go Home Goals: Patient will demonstrate progress with functional mobility to allow safe discharge to home with available support and/or physical assistance. Rehab Potential: Good Patient will be discontinued from Physical Therapy when no further skilled needs are identified in this setting. PLAN: Treatment Frequency (times per week): 7;BID Current admission Plan of Care developed with: Patient(spouse present) TREATMENT INTERVENTIONS: Therapy Diagnosis: Reduced mobility-other;Muscl e Weakness (generalized) Interventions Provided: Therapeutic Exercise (19715);Gait Training (44116) Therapeutic Exercise (51616) Treatment Minutes: 17 $ Therapeutic Exercise (84555) Billed Units: 1 unit TKR routine supine/seated with assist for safety. Gait Training (69373) Treatment Minutes: 23 $ Gait Training (71085) Billed Units: 2 units ww use for gait; Stair training--no loss of balance during activities. Reviewed TKR precautions. Training AND education provided in: Exercise program, Handout issued, Gait pattern, reduction of deviations, Stair navigation The following therapeutic skills were used: Cuing verbal, Cuing visual, Cuing tactile Total Timed Code Treatment Minutes: 40 Total Treatment Time (minutes): 40 Please see discipline specific clinical documentation flowsheet for complete details for this therapy evaluation/treatment . SIGNATURE: Paulina Johnson, PT PATIENT NAME: Mahesh Baxter DATE: April 02, 2020 MRN: (more content not included)... [facility] THERAPY NT HNO ID: [id number] Author: Paulina (Pt) Elizabeth Service: Physical Therapy Author Type: Physical Therapist Type: Therapy (PT/OT/Speech/Resp) Filed: 04/02/2020 1:26 PM Note Text: Physical Therapy Treatment SERVICE DATE: 04/02/2020 SERVICE TIME: 842 to 911 ROOM: [place] [address] Recommended Discharge Disposition: Home PT Anticipated Discharge Needs: Physical Assist at Home Physical Assist at Home for: Laundry;Cleaning;Loida ls;Shopping;Transpor tation Recommended Discharge Equipment: To Be Determined PT 6 Clicks Score: 17 Precautions/Activity Restrictions: Fall Risk;Bed/Chair Alarm;Lines/Tubes/Dr peterson;Total Knee Replacement;Weight Bearing Restrictions Precaution/Activity Restriction Comments: may turn to operative side Extremity With Weight Bearing Restricted: Right Lower Extremity Right Lower Extremity Weight Bearing Status: WBAT Current Hospital Course: s/p R TKR on 04/01/20 Reason for Hospital Admission: Pt admitted for R TKR Relevant Past Medical History: R OA, CTS Physical Therapy Problem List: Safety Deficits;Decreased Activity Tolerance;Decreased Strength;Functional Mobility Impairment;Balance Impaired;Pain Treatment Interventions: Education;Self Care / Home Management;Joint Mobility;Strengtheni ng;Functional Mobility Training Home Environment Patient Lives With: Spouse Assistance Available: PRN Entry To Home: No Stairs Number Of Stairs To Bed/Bath: 0 Tub/Shower Type: walk in shower Laundry: 1st floor Equipment Owned: Wheeled Walker;Crutch(es);Gr ab Bars-Bed;Grab Bars-Toilet;Grab Bars-Shower;Shower Chair;Dance Historian Prior Functional Level: Within Functional Limits Prior Functional Level Comments: Ind ambulator using crutches prn, ind with ADL's, and IADL's CURRENT FUNCTIONAL STATUS: Most recent performance Current Functional Mobility Assist Level Additional Information Rolling Minimal Assistance Supine to Sit Minimal Assistance Sit to Supine Minimal Assistance Scooting Contact Guard Assistance Sit to Stand Minimal Assistance Stand to Sit Contact Guard Assistance Bed to Chair Toilet/Commode Gait Contact Guard Assistance Gait Device: Wheeled Walker Gait Distance (feet): 32' Stairs Curb Step Car Transfer Blank downs indicate activity not attempted Gait Deviations Right Lower Extremity: Heel strike during initial stance decreased;Push off during terminal stance decreased;Stance time decreased;Step length decreased;Knee stability during stance phase decreased;Weight bearing decreased General Deviations/Observati ons: Antalgic gait;Purnima decreased;Difficulty changing direction/turning;Fl exed trunk posture;Step length decreased;UE weight bearing on assistive device excessive;Shuffling Gait;Improper distancing from assistive device Balance: Dynamic Standing Static Sitting Balance: Good Patient able to maintain balance without handhold support, limited postural sway Static Standing Balance: Fair Patient able to maintain balance with handhold support, may require occasional minimal assistance Dynamic Standing Balance: Fair Patient accepts minimal challenge, able to maintain balance while turning head/trunk Activity Tolerance: Standing Activity Standing Activity: ww use for gait training Standing Activity Tolerance (in minutes): 5 JH-HLM: 7: Walk 25 feet or more Learning/Educational Needs: Discharge Plan Goals for Plan of Care: Patient /Caregiver Goals: Go Home Goals: Patient will demonstrate progress with functional mobility to allow safe discharge to home with available support and/or physical assistance. Rehab Potential: Good Patient will be discontinued from Physical Therapy when no further skilled needs are identified in this setting. PLAN: Treatment Frequency (times per week): 7;BID Current admission Plan of Care developed with: Patient TREATMENT INTERVENTIONS: Therapy Diagnosis: Reduced mobility-other;Muscl e Weakness (generalized) Interventions Provided: Therapeutic Exercise (57132);Gait Training (63625) Therapeutic Exercise (47563) Treatment Minutes: 20 $ Therapeutic Exercise (11917) Billed Units: 1 unit TKR routine RLE supine/seated for strengthening; assist for safety of RLE. Gait Training (74097) Treatment Minutes: 9 $ Gait Training (64508) Billed Units: 1 unit ww use for gait training; no loss of balance. Cues for gait sequence; and not to get too close to the ww device. Total Timed Code Treatment Minutes: 29 Total Treatment Time (minutes): 29 Please see discipline specific clinical documentation flowsheet for complete details for this therapy evaluation/treatment . SIGNATURE: Paulina Johnson PT PATIENT NAME: Mahesh Baxter DATE: April 02, 2020 TIME: 1:25 PM [facility] THERAPY NT HNO ID: [id number] Author: Amna LynnOt/Paras Rosario Service: ? Author Type: Occupational Therapist Type: Therapy (PT/OT/Speech/Resp) Filed: 04/02/2020 10:58 AM Note Text: Occupational Therapy Evaluation SERVICE DATE: 04/02/2020 SERVICE TIME: 1005 to 1043 ROOM: [place] [address] Recommended Discharge Disposition: Home Recommended Discharge Disposition Comments: pt has adequate support and necessary DME/AE for safe discharge home and denies any home going concerns at this time Anticipated Discharge Needs: Physical Assist at Home Physical Assist at Home for: Laundry;Cleaning;Loida ls;Shopping;Transpor tation Recommended Discharge Equipment: No equipment needs anticipated OT 6 Clicks Score: 24 Patient is cleared for discharge home from an OT standpoint, when medically cleared. Precautions/Activity Restrictions: Fall Risk;Bed/Chair Alarm;Lines/Tubes/Dr peterson;Total Knee Replacement;Weight Bearing Restrictions Precaution/Activity Restriction Comments: may turn to operative side Extremity With Weight Bearing Restricted: Right Lower Extremity Right Lower Extremity Weight Bearing Status: WBAT Current Hospital Course: s/p R TKR on 04/01/20 Reason for Hospital Admission: Pt admitted for R TKR Relevant Past Medical History: R OA, CTS Response to Therapy Interventions: Good participation in activities, On-track to achieve discharge goals Continue skilled needs due to: Functional impairment Occupational Therapy Problem List: Impaired Self Care;Functional Mobility Impairment Cognition/Communicat ion Deficits Responsiveness: Alert, Awake Follows Commands: 3-step Commands Treatment Interventions: Education;Self Care / Home Management;Functiona l Mobility Training Plan for next visit: Standing tolerance, Standing balance Home Environment Patient Lives With: Spouse Assistance Available: PRN Entry To Home: No Stairs Number Of Stairs To Bed/Bath: 0 Tub/Shower Type: walk in shower Laundry: 1st floor Equipment Owned: Wheeled Walker;Crutch(es);Gr ab Bars-Bed;Grab Bars-Toilet;Grab Bars-Shower;Shower Chair;Dance Historian Prior Functional Level: Within Functional Limits Prior Functional Level Comments: Ind ambulator using crutches prn, ind with ADL's, and IADL's Patient Report: It feels so good to brush my teeth. CURRENT FUNCTIONAL STATUS: Most recent performance Current Activities of Daily Living Assist Level Additional Information Feeding Independent Grooming Supervision(standing at the sink) Bathing Upper Body Modified Independent(seated) Bathing Lower Body Supervision Dressing Upper Body Modified Independent(seated) Dressing Lower Body Supervision Toileting Supervision Instrumental Activities of Daily Living Assist Level Additional Information Meal/Beverage Prep Cleaning Laundry Medication Management with Strategies Functional Mobility Assist Level Additional Information Rolling Supine to Sit Sit to Supine Modified Independent Scooting Sit to Stand Modified Independent Stand to Sit Modified Independent Bed to Chair Toilet/Commode Supervision Shower Functional Mobility Supervision Wheeled Walker Blank downs indicate activity not attempted Balance: Static Sitting;Dynamic Sitting;Static Standing;Dynamic Standing Static Sitting Balance: Normal Patient able to maintain steady balance without handhold support Dynamic Sitting Balance: Normal Patient accepts maximal challenge and can shift weight easily within full range in all directions Static Standing Balance: Normal Patient able to maintain steady balance without handhold support Dynamic Standing Balance: Good Patient accepts moderate challenge, able to maintain balance while picking up object off floor Learning/Educational Needs: Discharge Plan;Functional Activities/Mobility; Plan of Care;Precautions;Elisa abilitation Techniques and Procedures;Self Care Goals for Plan of Care: Patient /Caregiver Goals: Go Home Goals: Patient will demonstrate progress with self-care, cognitive and/or coping needs identified to allow safe discharge to home with available support and/or physical assistance. Lower Body Bathing with: Modified Independent Lower Body Dressing with: Modified Independent Toilet Hygiene with: Modified Independent Chair Transfer with: Modified Independent Toilet Transfer with: Modified Independent Rehab Potential: Excellent Patient will be discontinued from Occupational Therapy when no further skilled needs are identified in this setting. PLAN: Treatment Frequency (times per week): 2 Current admission Plan of Care developed with: Patient TREATMENT INTERVENTIONS: Therapy Diagnosis: Decreased activities of daily living (ADL);Reduced mobility-other Interventions Provided: Evaluation;Self Snf Management (72374) $ Evaluation-Low (73207) Billed Units: 1 unit Self Snf Management (36907) Treatment Minutes: 23 $ Self Snf Management (56243) Billed Units: 2 units Training (more content not included)... [facility] ANES Wen 04-01-2020 ANES POST HNO ID: [id number] Author: Jaren Power (Aa) Service: ? Author Type: Superintendent Overhead Distribution Type: Anesthesia PostOp Filed: 04/01/2020 7:00 PM Note Text: Summary: Nerve Block Catheter Removed Advised by Dr. West that patient expressed she would like nerve block catheter removed. Catheter removed successfully, no resistance met, catheter tip removed intact. [facility] ANES POSTPROC EVALon 021 ANES POSTPROC EVAL HNO ID: [id number] Author: Jackson Mckee Service: ? Author Type: Anesthesiologist Type: Anesthesia Postprocedure Evaluation Filed: 04/01/2020 3:00 PM Note Text: POST ANESTHESIA EVALUATION NOTE : 1965 Procedure Summary Date: 04/01/20 Room / Location: OR08 / [facility] OR Anesthesia Start: 1159 Anesthesia Stop: 1431 Procedure: ARTHROPLASTY REPLACE JOINT TOTAL KNEE (Right Knee) Diagnosis: Primary osteoarthritis of right knee (Primary osteoarthritis of right knee [M17.11]) Surgeons: Dina Roger Responsible Provider: Jackson Mckee Anesthesia Type: spinal ASA Status: 2 Anesthesia Type: spinal Last vitals Vitals Value Taken Time BP 101/60 04/01/20 1446 Temp 36.5 ?C (97.7 ?F) 04/01/20 1428 Pulse 82 04/01/20 1459 Resp 17 04/01/20 1459 SpO2 97 % 04/01/20 1459 Vitals shown include unvalidated device data. Post Anesthesia Patient Status Patient Evaluation: PACU. PACU/ICU Patient Condition: stable. Anticipated Disposition: phase 2 then home. Neurological Status: aware and responsive. Pulmonary Status: breathing comfortably on room air Airway Control: returned to baseline unsupported. Cardiovascular Status: stable. Pain Management: clinically adequate Postoperative Hydration: acceptable. Intraoperative Events: no significant anesthesia events Post Operative Nausea/Vomiting Status: Anesthetic Observations: no significant anesthetic observations Recommendation: continue current plan of care. SIGNATURE: Jackson Mckee MD PATIENT NAME: Mahesh Baxter DATE: April 01, 2020 TIME: 3:00 PM CSN: [id number] [facility] ANES PRE-OPon 04-01-2020 ANES PRE-OP HNO ID: [id number] Author: Jackson Mckee Service: ? Author Type: Anesthesiologist Type: Anesthesia Preprocedure Evaluation Filed: 04/01/2020 11:42 AM Note Text: ANESTHESIOLOGY DAY OF SURGERY NOTE : 1965 Procedure(s) (LRB): ARTHROPLASTY REPLACE JOINT TOTAL KNEE (Right) Surgeon(s): Dina Roger Estimated body mass index is 28.52 kg/m? as calculated from the following: Height as of 03/19/20: 160 cm (5' 3 ). Weight as of 03/19/20: 73 kg (161 lb). Most recent hematocrit and potassium results: Hematocrit 43.6 03/19/2020 Potassium 4.4 03/19/2020 Relevant Problems Other (+) Arthritis of knee I - PHYSICAL EVALUATION AIRWAY Patient intubated: No. Mallampati: II. TM distance: >3 FB. Neck ROM: full ROM without neurological symptoms. Mouth opening: adequate. DENTAL Normal dental observations. Dental findings: teeth intact. Additional exam findings: yes. CARDIOVASCULAR Normal cardiovascular observations. Rhythm: regular Rate: normal PULMONARY Normal pulmonary observations. Breath sounds clear to auscultation. II - ANESTHESIA PLAN ASA Score: 2 Anesthetic Plan: spinal The patient is not a current smoker. NPO Status: adequate Monitoring plan: standard ASA. Postoperative analgesic plan: multimodal analgesia. Anesthetic Risks, Benefits, Alternatives, Personnel Discussed. Consent obtained from: patient. Patient / Surrogate agrees to blood products: yes Significant changes in the patient condition since the History and Physical, not otherwise documented in primary service progress note: no. Potential Anesthesia issues that may suggest increased risk of complications or contraindication to planned procedure: none. Vitals Value Taken Time BP 130/88 04/01/20 1140 Pulse 78 04/01/20 1142 Resp 15 04/01/20 1142 Temp 36.4 ?C (97.5 ?F) 04/01/20 1058 SpO2 98 % 04/01/20 1142 Vitals shown include unvalidated device data. Facility-Administere d Medications as of 04/01/2020 Medication Dose Route Frequency - lidocaine 10 mg/mL (1 %) 1-2 mg injection (XYLOCAINE) 0.1-0.2 mL INTRADERMAL PRN - lactated ringers infusion 5-30 mL/hr INTRAVENOUS CONTINUOUS - vancomycin iv piggyback 1 g in D5W 200 mL (VANCOCIN) 1 g INTRAVENOUS Pre-Op Once - ciprofloxacin iv piggyback 400 mg in D5W 200 mL (CIPRO) 400 mg INTRAVENOUS Pre-Op Once - tranexamic acid 1,000 mg in NaCl 0.9% 100 mL (CYKLOKAPRON) 1,000 mg INTRAVENOUS Pre-Op Once - tranexamic acid 1,000 mg in NaCl 0.9% 100 mL (CYKLOKAPRON) 1,000 mg INTRAVENOUS ONCE - [COMPLETED] midazolam (PF) 2 mg injection (VERSED) 2 mg INTRAVENOUS ONCE - acetaminophen 1,000 mg tab(s) (TYLENOL) 1,000 mg ORAL Pre-Op Once - promethazine 12.5 mg tab(s) (PHENERGAN) 12.5 mg ORAL Pre-Op Once - lactated ringers infusion 30 mL/hr INTRAVENOUS CONTINUOUS Outpatient Medications as of 04/01/2020 Medication Sig - etodolac (LODINE) 400 mg tablet Take 1 tablet by mouth twice daily. - ESTROGEN,KAVITA/ME-TE STOSTERONE (ESTRATEST ORAL) Take by mouth once daily. - Fluticasone Propionate 250 mcg/actuation DsDv Inhale as instructed as needed. I have interviewed and examined the patient. I have reviewed the medical record and/or the pre-anesthesia evaluation, pertinent labs, and test results. This contains updated information obtained within 48 hours of Surgery/Procedure. SIGNATURE: Jackson Mckee MD PATIENT NAME: Mahesh Baxter DATE: April 01, 2020 TIME: 11:42 AM CSN: [id number] [facility] BRIEF OP NOTon 04-01-2020 BRIEF OP NOT HNO ID: [id number] Author: Nick Roger Service: Orthopaedic Surgery Author Type: Resident Type: Brief Op Note Filed: 04/01/2020 2:00 PM Note Text: BRIEF OP NOTE LOG ID: [id number] Surgery/Procedure Date: 04/01/2020 Incision/Procedure Start Time: 12:34 PM Incision Close/Procedure End Time: Surgeon(s)/Procedura list(s) and Vacuum Cleaner Repairer(s): Surgeon(s) and Role: * Dina Roger - Primary * Nick Roger - Resident - Assisting Procedure(s): R TKA Anesthesia: Block Regional - Extremity Lower Findings: Right femoral and tibial osteophytes Estimated Blood Loss: 100 mls Specimens: None Complications: None Pre-Op/Pre-Procedure Diagnosis: Right knee primary OA Post-Op/Post-Procedu re Diagnosis:Right knee primary OA SIGNATURE: Nick Roger MD PATIENT NAME: Mahesh Baxter DATE: April 01, 2020 TIME: 2:00 PM PAGER/CONTACT #: [facility] NURSING PROGon 04-01-2020 NURSING PROG HNO ID: [id number] Author: Ellen Sanchez RN Service: Nursing Author Type: Registered Nurse Type: Nursing Progress Note Filed: 04/01/2020 6:46 PM Note Text: Nursing Progress Note Patient Name: Mahesh Baxter Patient Location: [facility]/[id number] Transfer Note: Patient transferred into room/unit PK3A room 312 in stable condition. Actions taken: No futher actions taken at this time. Will continue to monitor and check with patient. Patient alert and oriented. VSS on RA. Dressing dry and intact. Neuro intact. Good cap refill. Toes warm. IVF infusing. Instructed on use of IS. Bed low and locked. Oriented patient to room. Call light and possessions are within reach. 1645: Patient restless. Complaining of nausea and shooting pain in her leg. States she thinks it is from the nerve block. Would like it removed. PRN zofran and oxycodone given. Page sent to [facility] with pain management as well as Dr. Byrnes who placed block. 1720: Dr. Roger at the bedside. Stating patient would like nerve block out. Turned off block at this time. Awaiting call back from pain management. 183: Paged public relations professional OB anesthesia regarding patients block. Made aware that block is turned off. 183: Spoke with Dr. West. Some with anesthesia will be up to remove block. 1840: Antonino Power AA up to remove block. This note was completed by: Ellen Sanchez RN [facility] NURSING PROG HNO ID: [id number] Author: Anisa (Rn) KUMAR Callaway Service: Nursing Author Type: Registered Nurse Type: Nursing Progress Note Filed: 04/01/2020 10:30 AM Note Text: PATIENT EDUCATION TOPIC: PROCEDURE / SURGERY: Pre-op Teaching: Protocols PATIENT NAME: Mahesh Baxter PATIENT LOCATION: [facility] OR POOL/[facility] OR POOL READINESS TO LEARN COGNITIVE ABILITY: Alert and oriented MOTIVATION TO LEARN: Interested FAMILY SUPPORT: Unable to assess - Family not present INSTRUCTION PROVIDED TO: Patient PATIENT LEARNS BEST BY: Individual Instruction FACTORS AFFECTING LEARNING: None PHYSICAL LIMITATIONS AFFECTING LEARNING: None LEARNING RESPONSE DIAGNOSIS: ADULT: Well Adult PATIENT/FAMILY RESPONSE: Verbalizes understanding of: PRE-OPERATIVE INSTRUCTIONS-Correct action to take to follow pre-operative instructions METHOD OF INSTRUCTION: Individual instruction FOLLOW-UP PLAN: Patient instructed to call with any further issues INSTRUCTIONAL AIDS USED: NA SUPPLEMENTAL MATERIAL PROVIDED TO PATIENT: None REFERRAL (RECOMMENDATION): None Electronically Signed By: Anisa Callaway RN } [facility] OPERATIVE NOon 04-01-2020 OPERATIVE NO HNO ID: [id number] Author: Dina Roger Service: Orthopaedic Surgery Author Type: Physician Type: Operative Report Filed: 04/01/2020 2:18 PM Note Text: OPERATIVE NOTE PATIENT NAME: Mahesh Baxter LOG ID: [id number] Surgery Date: 04/01/2020 Surgeon(s): Dina Roger MD Vacuum Cleaner Repairer(s): Nick Roger MD resident office clerk assistant Physician Vacuum Cleaner Repairer: Mally (Durga) Elisa Medina/primary surgeon/proceduralis t performed the procedure with assistance. Front Office Coordinator opened and closed, under direct supervision and the remainder of the procedure was performed by the primary surgeon/proceduralis t with assistance. Procedure(s): Procedure(s) (LRB): ARTHROPLASTY REPLACE JOINT TOTAL KNEE (Right) BMI: Estimated body mass index is 28.52 kg/m? as calculated from the following: Height as of 03/19/20: 160 cm (5' 3 ). Weight as of 03/19/20: 73 kg (161 lb). Anesthesia: Block Regional - Extremity Lower Operative Time: Total operative time from wheels in to wheels out, including anesthesia time was * Missing case tracking time(s) * Incision Start: 12:34 PM Incision Stop: 2:10 PM Attestation: I was present for all of the critical portions of the operation and performed all critical portions. The resident/fellow/PA performed the closure under supervision, and assisted during the operation. I was immediately available for the duration of the entire case. Preop Diagnosis: Pre-Op Diagnosis Codes: * Primary osteoarthritis of right knee [M17.11] Postop Diagnosis: Same as Pre-Op Diagnosis Codes: * Primary osteoarthritis of right knee [M17.11] Findings: OA EBL: 150 cc Implants: Allen Triathlon Press Fit 4 CR femur 4 Tibia baseplate 9 CS poly 29 Patella Problem List: ACTIVE PROBLEM LIST Carpal Tunnel Syndrome Other Affections of Shoulder Region, Not Elsewhere Classified Rotator Cuff (Capsule) Sprain Primary Osteoarthritis of Right Knee Arthritis of Knee OPERATIVE INDICATIONS: The patient has a long history of progressive right knee pain, arthritis, and degeneration. They has developed deformity in the right knee from predominantly medial wear and bone loss. Non-operative treatment and Physical Therapy have been attempted on the right, but have not improved or controlled the symptoms and pain that occurs during normal daily activities. Knee motion has also become limited and is restricting the patient. Right total knee arthroplasty was recommended. The risks, benefits and potential complications of the arthroplasty surgery were discussed with the patient in detail. Specific details of the surgical procedure, hospitalization, recovery, rehabilitation, and long-term precautions were also presented. Pre-operative teaching was provided. Implant/prosthesis selection was outlined, and the many options available were explained; the final choice will be made at the time of the procedure to match the anatomy and condition of the bone, ligaments, tendons, and muscles. The patient was seen by [facility] for pre-operative optimization, and risk assessment. Randi-operative blood management and the potential for blood transfusion were discussed with risks and options clearly outlined. Understanding of all topics was conveyed to me by the patient pre-operatively, and patient consent was given to proceed with the right total knee replacement. OPERATIVE PROCEDURE: The patient was identified and brought into the Operating Room by the anesthesia and nursing teams. Anesthesia was successfully performed. The patient was then positioned supine on the operating room table, and all bony prominences were padded. Intravenous antibiotic prophylaxis dosing was confirmed. A tourniquet was applied to the right upper thigh. A full knee exam was done after anesthesia was in full effect. The right leg was prepped and draped in the usual sterile fashion. A surgical time-out was performed immediately preceding the incision with all personnel in the operating room; the patient identity was again confirmed, the right knee-surgical site and extremity were identified and confirmed, X-rays were reviewed, and availability of the appropriate surgical equipment was established. The right knee was exsanguinated and exposed using a limited anterior-midline skin incision. Dissection was carried down through skin and subcutaneous tissue to the extensor mechanism with a scalpel. A median para-patellar arthrotomy was made to enter the knee space sharply. A large amount of normal appearing joint fluid was encountered and suctioned. The synovium was thickened, hypertrophic, and inflamed. A partial synovectomy was performed for exposure, and the medial and lateral gutters were cleared of scar and synovial reflections. The superficial medial collateral ligament was carefully elevated off osteophytes which were then removed with a rongeur and osteotome. Degenerative meni (more content not included)... [facility] THERAPY NTon 04-01-2020 THERAPY NT HNO ID: [id number] Author: Darren Carney (Pt) Theodore Service: Physical Therapy Author Type: Physical Therapist Type: Therapy (PT/OT/Speech/Resp) Filed: 04/01/2020 7:01 PM Note Text: Physical Therapy Evaluation SERVICE DATE: 04/01/2020 SERVICE TIME: 1805 to 1830 ROOM: [place] [address] Recommended Discharge Disposition: Home PT Anticipated Discharge Needs: Physical Assist at Home Physical Assist at Home for: Laundry;Cleaning;Loida ls;Shopping;Transpor tation Recommended Discharge Equipment: To Be Determined PT 6 Clicks Score: 15 Precautions/Activity Restrictions: Fall Risk;Bed/Chair Alarm;Lines/Tubes/Dr peterson;Total Knee Replacement;Weight Bearing Restrictions Precaution/Activity Restriction Comments: may turn to operative side Extremity With Weight Bearing Restricted: Right Lower Extremity Right Lower Extremity Weight Bearing Status: WBAT Current Hospital Course: s/p R TKR on 04/01/20 Reason for Hospital Admission: Pt admitted for R TKR Relevant Past Medical History: R OA, CTS Response to Therapy Interventions: Good participation in activities, Low activity tolerance, Pain Continue skilled needs due to: Functional mobility/skill impairments Physical Therapy Problem List: Safety Deficits;Decreased Activity Tolerance;Decreased Strength;Functional Mobility Impairment;Balance Impaired;Pain Treatment Interventions: Education;Strengthen ing;Functional Mobility Training;Balance Training;Energy Conservation Training;Joint Mobility Plan for next visit: Bed mobility, Gait training, Sit to Stand Transfers, Standing Balance, Walker Training Home Environment Patient Lives With: Spouse Assistance Available: PRN Entry To Home: No Stairs Number Of Stairs To Bed/Bath: 0 Laundry: 1st floor Equipment Owned: Wheeled Walker;Crutch(es);Gr ab Bars-Bed;Grab Bars-Toilet;Grab Bars-Shower;Shower Chair Prior Functional Level: Within Functional Limits Prior Functional Level Comments: Ind ambulator using crutches prn, ind with ADL's, and IADL's Patient Report: Pt agreeable to participate in therapy session. she reports R LE pain and nasuea CURRENT FUNCTIONAL STATUS: Most recent performance Current Functional Mobility Assist Level Additional Information Rolling Supine to Sit Minimal Assistance Sit to Supine Minimal Assistance Scooting Contact Guard Assistance Sit to Stand Minimal Assistance Stand to Sit Minimal Assistance Bed to Chair Toilet/Commode Gait Moderate Assistance Gait Device: Wheeled Walker;Other: See Comment(gait belt) Gait Distance (feet): 2 Stairs Curb Step Car Transfer Blank downs indicate activity not attempted Gait Deviations Right Lower Extremity: Heel strike during initial stance decreased;Push off during terminal stance decreased;Stance time decreased;Step length decreased;Knee stability during stance phase decreased;Weight bearing decreased General Deviations/Observati ons: Antalgic gait;Purnima decreased;Flexed trunk posture;Step length decreased(unsteadine ss, limited due to pain, reports of dizziness) Balance: Static Sitting;Static Standing;Dynamic Standing Static Sitting Balance: Good Patient able to maintain balance without handhold support, limited postural sway Static Standing Balance: Fair Patient able to maintain balance with handhold support, may require occasional minimal assistance Dynamic Standing Balance: Fair Patient accepts minimal challenge, able to maintain balance while turning head/trunk -HLM: 3: Sit at edge of bed Learning/Educational Needs: Safety;Functional Activities/Mobility; Family Education/Training;E quipment Goals for Plan of Care: Patient /Caregiver Goals: Go Home;Other: See Comment(ind mobility) Goals: Patient will demonstrate progress with functional mobility to allow safe discharge to home with available support and/or physical assistance. Rehab Potential: Good Patient will be discontinued from Physical Therapy when no further skilled needs are identified in this setting. PLAN: Treatment Frequency (times per week): 7;BID Current admission Plan of Care developed with: Patient;Family TREATMENT INTERVENTIONS: Therapy Diagnosis: Reduced mobility-other;Muscl e Weakness (generalized);Unstea diness on feet Interventions Provided: Evaluation;Therapeut ic Activity (32371) $ Evaluation-Low (30911) Billed Units: 1 unit Therapeutic Activity (84453) Treatment Minutes: 10 $ Therapeutic Activity (02195) Billed Units: 1 unit Instructed pt on TKR precautions and cued pt to maintain during all functional mobility. Instructed pt on bed mobility and sit to stand transfers, cueing pt on positioning prior, hand placement, and technique. Performed transfers for functional mobility training and strengthening. Instructed pt on ww use and safety. Cued pt for sequencing when using a ww and pt attempted ambulation but was limited to dizziness, pain, and nausea. Instructed pt on supine therapeutic exercises and issued HEP. Disc (more content not included)... [facility] XR KNEE 2V AP/LAT RTon 04-01 XR KNEE 2V AP/LAT RT * * *Final Report* * * DATE OF EXAM: Apr 01 2020 2:42PM FVO 5207 - XR KNEE 2V AP/LAT RT / PROCEDURE REASON: Post-operative / post-procedure assessment, asymptomatic * * * * Physician Interpretation * * * * XR KNEE 2V AP/LAT RT: Indication: Post-operative / post-procedure assessment, asymptomatic. Comparison: 12/16/2019 Technique: AP and crosstable lateral views of the right knee were obtained. Findings: There is a mild soft tissue swelling and subcutaneous emphysema about the right knee, more so anteriorly, compatible with postoperative changes status post interval total knee arthroplasty with patellar resurfacing. There is no evidence of acute fracture, malalignment, bone lesion or abnormal lucency about the intact hardware. Bone mineralization appears normal. There is a small suprapatellar joint effusion. IMPRESSION: Uncomplicated postoperative plain film appearance status post right TKR. Handbag Designer: ALBINA Transcribe Date/Time: Apr 01 2020 2:56P Dictated by : EULALIO WORTHY MD This examination was interpreted and the report reviewed and electronically signed by: EULALIO WORTHY MD on Apr 01 2020 3:04PM EST [id number] CN Normal [facility] Confirm Blood Typeon 021 ABO/RH(D) Negative Normal [facility] Comment on above: Performed By: #### C ONABO ####[id number] [place], [place] [phone] Type and SCR (30D)on 021 ABO/RH(D) Negative Normal [facility] Comment on above: Performed By: #### T SCR30 ####[facility] [place], [place] [phone] HOSPon 03-16-2020 HOSP Patient:Frannie Baxter I MRN: Height:5' 3 (1.6 m) Weight:161 lb (73.029 kg) Outpatient Medications as of 04/01/20: TURMERIC ORAL mupirocin (BACTROBAN) 2 % ointment etodolac (LODINE) 400 mg tablet Fluticasone Propionate 250 mcg/actuation DsDv ESTROGEN,KAVITA/ME-TE STOSTERONE (ESTRATEST ORAL) Admission/Clinic Administered Medications as of 04/01/20: lidocaine 10 mg/mL (1 %) 1-2 mg injection (XYLOCAINE) lactated ringers infusion vancomycin iv piggyback 1 g in D5W 200 mL (VANCOCIN) ciprofloxacin iv piggyback 400 mg in D5W 200 mL (CIPRO) tranexamic acid 1,000 mg in NaCl 0.9% 100 mL (CYKLOKAPRON) tranexamic acid 1,000 mg in NaCl 0.9% 100 mL (CYKLOKAPRON) acetaminophen 1,000 mg tab(s) (TYLENOL) promethazine 12.5 mg tab(s) (PHENERGAN) lactated ringers infusion Problem List: Carpal tunnel syndrome [G56.00] Other affections of shoulder region, not elsewhere classified [M25.819] Rotator cuff (capsule) sprain [S43.429A] Primary osteoarthritis of right knee [M17.11] Arthritis of knee [M17.10] Allergies: Penicillins Date Verified: 04/01/20 Lab Values Lab Value Units Date High Low POTA* 4.4 mmol/L 03/19/2020 5.1 3.7 MANDY* 43.6 % 03/19/2020 46.0 36.0 Progress Notes ([facility]): Lachelle Goodwin RN, RN 03/20/2020 11:09 AM Signed Patient referred to Blood Management for pre-surgical optimization. Hgb 14.4 which exceeds Blood Management guidelines for intervention. Progress Notes ([facility]): Jaren Manjarrez RN, RN 03/16/2020 9:40 AM Signed Instructions for Blood Management Decreasing the need for blood transfusions after surgery can help your body heal faster and help your body fight infection better. Blood Management will check your blood and iron levels to see if you would benefit from having treatment to help increase your blood counts before your surgery. What do you need to do? 1. Go and have your labs (CBC, Ferritin, Iron Studies) drawn today or within the next three days at the nearest [facility] lab. If you would like, you can go today, following your appointment, to any of our outpatient labs. 2. If it is determined that you would benefit from treatment, someone from the Blood Management Department will call you. If we call you, we will then give further instructions for iron replacement. If you do not hear from Blood Management, your lab results were okay and you do not need additional iron replacement. Questions? Contact us: If you are having surgery at [facility] or If you are having surgery at [place], [place], [facility] , [place], [place], [facility], [facility], or [facility] Jaren Manjarrez, RN, RN 03/16/2020 11:58 AM Signed Surgery planning information Dina Roger M.D. Orthopaedic Surgeon [facility] [phone] - office [phone] - fax Dear Mahesh Baxter, It was a pleasure speaking and meeting with you recently and we thank you for entrusting Dr. Roger and our team with your upcoming surgical needs. Per our conversation, you are scheduled for surgery with Dr. Roger on Procedure Date: April 01, 2020 Procedure Location: [address] [place] [address] *PLEASE call [facility] (Anesthesia) at [phone] to schedule your Pre Operative Anesthesia appointment to review your health history. Arrival Time Day of Surgery: You will receive a call from the Orthopaedic Surgical Schedulers the day/ afternoon prior to your procedure. If your procedure is scheduled on a Monday, you may receive your arrival time on Monday/ Monday prior to your surgical procedure. You may take your morning medication(s) with water the day of your procedure unless otherwise advised by your Physician or PreOperative Anesthesia Group. Per the anesthesia guidelines, Nick Mehta 's last clear liquids should be 2 hours prior to arrival time. Last light-solid foods should be 6 hours prior to arrival time. Last heavy-solid foods should be 8 hours prior to arrival time. When patients inquire ? ?should I wake up early to eat so I won't be starving?, I generally do not advise a surgical patient to do so. It is my responsibility to advocate for the patient and advise them to be as safe as possible prior to any procedure to prevent any delays or potential complications / aspiration of foreign debris in the lungs. Also, should any earlier procedures be cancelled, the next patient who is ready will be moved to the earlier time slot. Please don't hesitate to call/ email/ [facility] should you have any questions or concerns. *PLEASE call [facility] (Anesthesia) at [phone] to schedule your Pre Operative Anesthesia appointment to review your health history. *If you have not been contacted within 12 days prior to your surgery date, PLEASE call [phone] to schedule your Pre Operative COVID-19 test/ appointment to. You will need to complete a CO (more content not included)... Normal [facility] CNOVon 02-27-2020 CNOV Office Visit ([facility]) MAHESH BAXTER I ([id number]) 1965 F Date Time Provider Department 02/27/20 3:15 PM DINA ROGER ORFP During your visit today, we recorded the following information about you: Dina Roger MD 02/27/2020 3:23 PM Signed NEW ENCOUNTER Chief Complaint: right Knee pain History: Patient is a 54 year old female; she denies an acute injury event. Date of injury/duration of pain: 12/16/2019 Location: medial and anterior knee Intensity: Moderate Quality: Aching Job Related: No Symptoms with the following activities: Increased activity The following things help the symptoms: Rest reports catching denies locking reports buckling denies giving way reports pain with twist / pivot Social History: Tobacco Use: Never Work: [employer] Exercise: walking Patient History PAST MEDICAL HISTORY Diagnosis Date - Other affections of shoulder region, not elsewhere classified 08/09/2012 PAST SURGICAL HISTORY Procedure Laterality Date - PAST SURGICAL HISTORY OF 2003 total hysterectomy - PAST SURGICAL HISTORY OF 1992,1993 csections X2 etodolac (LODINE) 400 mg tablet Take 1 tablet by mouth twice daily. Fluticasone Propionate 250 mcg/actuation DsDv Inhale as instructed as needed. ESTROGEN,KAVITA/ME-TE STOSTERONE (ESTRATEST ORAL) Take by mouth once daily. Allergies: ALLERGIES Allergen Reactions - Penicillins REVIEW OF SYSTEMS: Patient reports no change in past medical AND surgical history, medications, allergies, social history, family history and review of systems Allergies, medications, past surgical history and past medical history were reviewed per this encounter. Physical Examination: Region: Knee General Appearance: Appears healthy, well-nourished, no deformities. Neck/Spine/Station/G ait: N/A Normal gait Left Exam: AROM: 0-135 PROM: Normal Point Tenderness location: none Swelling/Effusion: none Stability: normal Muscle Strength: normal Sensation:normal Reflexes:normal Skin: normal Pulses: normal Special Tests: None Right Exam: AROM: 0-120 PROM: Same as active Point Tenderness location:medial jointline and patellofemoral Swelling/Effusion: moderate Stability: normal Muscle Strength: normal Sensation:normal Reflexes:normal Skin: normal Pulses: normal Special Tests: None Images have been personally reviewed by me and discussed with patient. Abnormal, mild tricompartmental arthritis MRI shows medial and lateral femoral condyles have areas of high-grade cartilage loss. Patellofemoral and trochlea with high-grade cartilage loss. Degenerative tearing of the meniscus Assessment and Plan: Right knee osteoarthritis Reviewed options for treatment. She has had corticosteroid injection. 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 None of these seem to be adequately treating her based on her activities of daily living. Interested in total knee replacement. I discussed the risk, benefits, postoperative rehabilitation and convalescence associated with knee replacement. She is consented to proceed. She did have a steroid injection in December so we will be targeting a date and mid-to-late March to be 3 months outside of the steroid injection. [place] triathlon system (cementless should be on standby) -typically CS, PS should be available Z retractors Seth retractor (PCL protector) Position: Supine, ?tootsie roll? or ?pain roller? foot positioner for foot and toe position on operative side. Bump under operative hip. [place] foam pad nonoperative side. Closure: #1 Vicryl, 0 or 1 barbed running suture, 2-0 Vicryl, 3-0 monocryl, Glue, Steri's, Aquacel. (3-0 Nylon and NO glue or steri's for medically complex patients). Thigh high TEDs. PT HHC and outpatient per protocol Follow-up: 2 week, 6 week, 3 months. (XR at 6 week follow-up). Dina Roger MD Sports Medicine/Orthopaedic Surgery Dina Roger MD 02/27/2020 3:44 PM Signed Addended by: DINA ROGER MD on: 02/27/2020 03:44 PM Modules accepted: Orders Referring Provider: JAYESH AGRAWAL [[id number]] Allergies As of Date: 02/27/2020 Noted Allergy Reaction PENICILLINS 12/05/2008 Date Reviewed: 02/27/2020 Reviewed by: Pauline Romeor Ma - Fully Assessed Primary Visit Diagnosis:Arthritis of right knee [M17.11] Other Visit Diagnosis:Acute medial meniscus tear of right knee, subsequent encounter [S83.229E] Order(s):REFER TO [facility] - PRE ANESTHESIA CONSULTATION CLINIC [[id number]] Order #: [id number]: 1 etodolac (LODINE) 400 mg tabletTake 1 tablet by mouth twice daily.Disp: 30 tabletRfl: 1 Prescriptions as of 02/27/2020 Sig: ETODOLAC 400 MG TABLET Take 1 tablet by mouth twice * FLUTICASONE PROPIONATE 250 MC* Inhale as instructed as need* ESTRATEST ORAL Take by mouth once daily. Problem List As Of Date 02/27/2020 Noted Resolved Carpal Tunnel Syndrome [G5 (more content not included)... 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 Problem List As Of Date 02/14/2020 Noted Resolved Carpal Tunnel Syndrome [G56.00] 12/05/2008 Other affections of shoulder region, not elsewh*08/09/2012 Rotator cuff (capsule) sprain [S43.429A] 12/18/2012 Encounter Status:Closed by JAREN MANJARREZ on 02/14/20 [facility] Vital Signs Date Time Vital Sign Value Performing Clinician Facility 08-30-2022 14:00-0400 Body height 162.56 cm Randall Kerr Other [facility] Other 08-30-2022 14:00-0400 Body mass index (BMI) [Ratio] 30.21 kg/m2 Randall Kerr Other [facility] Other 08-30-2022 14:00-0400 Body weight 79.83 kg Randall Kerr Other [facility] Other 08-30-2022 14:00-0400 Diastolic blood pressure 70 mm[Hg] Randall Kerr Other [facility] Other 08-30-2022 14:00-0400 Respiratory rate 16 /min Randall Kerr Other [facility] Other 08-30-2022 14:00-0400 SaO2% (BldA) [Mass fraction] 94 % Randall Kerr Other [facility] Other 08-30-2022 14:00-0400 Systolic blood pressure 116 mm[Hg] Randall Kerr Other [facility] Other 06-30-2022 16:15-0400 Body height 162.56 cm Jigna Sparks Other [facility] Other 06-30-2022 16:15-0400 Body mass index (BMI) [Ratio] 29.59 kg/m2 Jigna Sparks Other [facility] Other 06-30-2022 16:15-0400 Body temperature 98 [degF] Jigna Sparks Other [facility] Other 06-30-2022 16:15-0400 Body weight 78.2 kg Jigna Sparks Other [facility] Other 06-30-2022 16:15-0400 Diastolic blood pressure 82 mm[Hg] Jigna Sparks Other [facility] Other 06-30-2022 16:15-0400 Respiratory rate 18 /min Jigna Sparks Other [facility] Other 06-30-2022 16:15-0400 SaO2% (BldA) [Mass fraction] 97 % Jigna Sparks Other [facility] Other 06-30-2022 16:15-0400 Systolic blood pressure 119 mm[Hg] Jigna Sparks Other [facility] Other 02-23-2022 11:45-0500 Body height 162.56 cm Randall Kerr Other [facility] Other 02-23-2022 11:45-0500 Body mass index (BMI) [Ratio] 27.63 kg/m2 Randall Kerr Other [facility] Other 02-23-2022 11:45-0500 Body weight 73.03 kg Randall Kerr Other [facility] Other 02-23-2022 11:45-0500 Diastolic blood pressure 82 mm[Hg] Randall Aan Other [facility] Other 02-23-2022 11:45-0500 Respiratory rate 16 /min Randall Ana Other [facility] Other 02-23-2022 11:45-0500 SaO2% (BldA) [Mass fraction] 96 % Randallfreddy Kerr Other [facility] Other 02-23-2022 11:45-0500 Systolic blood pressure 118 mm[Hg] Randall Kerr Other [facility] Other 01-13-2022 14:30-0400 Body height 162.56 cm Randall Ana Other [facility] Other 01-13-2022 14:30-0400 Body mass index (BMI) [Ratio] 27.98 kg/m2 Randall Kerr Other [facility] Other 01-13-2022 14:30-0400 Body weight 73.94 kg Randall Ana Other [facility] Other 01-13-2022 14:30-0400 Diastolic blood pressure 88 mm[Hg] Randall Kerr Other [facility] Other 01-13-2022 14:30-0400 Respiratory rate 16 /min Randall Kerr Other [facility] Other 01-13-2022 14:30-0400 SaO2% (BldA) [Mass fraction] 94 % Randall Kerr Other [facility] Other 01-13-2022 14:30-0400 Systolic blood pressure 130 mm[Hg] Randall Kerr Other [facility] Other 12-15-2021 11:15-0400 Body height 162.56 cm Randall Kerr Other [facility] Other 12-15-2021 11:15-0400 Body mass index (BMI) [Ratio] 28.83 kg/m2 Randall Kerr Other [facility] Other 12-15-2021 11:15-0400 Body weight 76.2 kg Randall Kerr Other [facility] Other 12-15-2021 11:15-0400 Diastolic blood pressure 78 mm[Hg] Randall Kerr Other [facility] Other 12-15-2021 11:15-0400 Respiratory rate 16 /min Randall Kerr Other [facility] Other 12-15-2021 11:15-0400 SaO2% (BldA) [Mass fraction] 94 % Randall Kerr Other [facility] Other 12-15-2021 11:15-0400 Systolic blood pressure 130 mm[Hg] Randall Kerr Other [facility] Other 11-18-2021 16:15-0400 Body height 162.56 cm Randall Kerr Other [facility] Other 11-18-2021 16:15-0400 Body mass index (BMI) [Ratio] 30.89 kg/m2 Randall Kerr Other [facility] Other 11-18-2021 16:15-0400 Body weight 81.65 kg Randall Kerr Other [facility] Other 11-18-2021 16:15-0400 Diastolic blood pressure 82 mm[Hg] Randall Kerr Other [facility] Other 11-18-2021 16:15-0400 Respiratory rate 18 /min Randall Kerr Other [facility] Other 11-18-2021 16:15-0400 SaO2% (BldA) [Mass fraction] 95 % Randall Kerr Other [facility] Other 11-18-2021 16:15-0400 Systolic blood pressure 132 mm[Hg] Randall Kerr Other [facility] Other 09-23-2021 16:45-0400 Body height 162.56 cm Randall Kerr Other [facility] Other 09-23-2021 16:45-0400 Body mass index (BMI) [Ratio] 30.38 kg/m2 Randall Kerr Other [facility] Other 09-23-2021 16:45-0400 Body weight 80.29 kg Randall Kerr Other [facility] Other 09-23-2021 16:45-0400 Diastolic blood pressure 70 mm[Hg] Randall Kerr Other [facility] Other 09-23-2021 16:45-0400 Respiratory rate 16 /min Randall Kerr Other [facility] Other 09-23-2021 16:45-0400 SaO2% (BldA) [Mass fraction] 96 % Randall Kerr Other [facility] Other 09-23-2021 16:45-0400 Systolic blood pressure 110 mm[Hg] Randall Kerr Other [facility] Other Encounters Encounter Date Encounter Type Care Provider Facility Start: 08-30-2022 End: 08-30-2022 ambulatory Randall Kerr Other [facility] Other Start: 08-30-2022 Office outpatient vi sit 15 minutes Randall Kerr [facility] Start: 08-29-2022 End: 08-29-2022 ambulatory Randall Kerr Other [facility] Other Start: 08-29-2022 Telephone encounter Randall Kerr [facility] Start: 08-11-2022 End: 08-11-2022 ambulatory Randall Kerr Other [facility] Other Start: 08-11-2022 Nursing evaluation o f patient and report Randall Kerr [facility] Start: 08-10-2022 End: 08-10-2022 ambulatory Randall Kerr Other [facility] Other Start: 08-10-2022 Telephone encounter Randall Kerr [facility] Start: 08-09-2022 End: 08-09-2022 ambulatory Randall Kerr Other [facility] Other Start: 08-09-2022 Nursing evaluation o f patient and report Randall Kerr [facility] [place] Start: 08-09-2022 Telephone encounter Randall Kerr [facility] [place] Start: 06-30-2022 End: 06-30-2022 ambulatory Jigna Bridger Other [facility] Other Start: 06-30-2022 Office outpatient vi sit 25 minutes Jigna Sparks [facility] [place] Start: 03-22-2022 End: 03-22-2022 ambulatory Randall Kerr Other [facility] Other Start: 03-22-2022 Telephone encounter Randall Kerr [facility] [place] Start: 03-08-2022 End: 03-08-[address] MAINE KERR Facility: Start: 02-23-2022 End: 02-23-2022 ambulatory Randall Kerr Other [facility] Other Start: 02-23-2022 Office outpatient vi sit 15 minutes Randall Kerr [facility] [place] Start: 01-13-2022 End: 01-13-2022 ambulatory Randall Kerr Other [facility] Other Start: 01-13-2022 Office outpatient vi sit 15 minutes Randall Kerr [facility] [place] Start: 12-15-2021 End: 12-15-2021 ambulatory Randall Kerr Other [facility] Other Start: 12-15-2021 Office outpatient vi sit 15 minutes Randall Kerr [facility] [place] Start: 11-18-2021 End: 11-18-2021 ambulatory Randall Kerr Other [facility] Other Start: 11-18-2021 Office outpatient vi sit 25 minutes Randall Kerr [facility] Start: 10-25-2021 End: 10-25-2021 ambulatory Randall Kerr Facility:[facility] Start: 10-25-2021 End: 10-25-2021 Patient encounter procedure DO Randall Kerr Work Phone: [facility] [place] Start: 10-14-2021 End: 10-14-2021 ambulatory Randall Kerr Other [facility] Other Start: 10-14-2021 Telephone encounter Randall Kerr [facility] Start: 10-08-2021 End: 10-08-2021 ambulatory Randall Kerr Other [facility] Other Start: 10-08-2021 Telephone encounter Randall Kerr [facility] Start: 10-06-2021 End: 10-06-2021 ambulatory Randall Kerr Facility:[facility] Start: 10-06-2021 End: 10-06-2021 Patient encounter procedure DO Randall Kerr Work Phone: [facility]-Ultrasound [facility] Start: 09-23-2021 End: 09-23-2021 ambulatory Randall Kerr Other [facility] Other Start: 09-23-2021 Encounter for genera l adult medical examination without abnormal findings Randall Kerr [facility] Start: 09-23-2021 Office outpatient vi sit 25 minutes Randall Kerr [facility] Start: 09-06-2021 End: 09-06-2021 ambulatory Randall Kerr Facility:[facility] Start: 09-06-2021 End: 09-06-2021 Patient encounter procedure DO [facility] [place] Start: 08-02-2021 End: 08-02-2021 ambulatory Randall Kerr Facility:[facility] Start: 2021 End: 2021 ambulatory Randall Kerr Facility:[facility] Start: 01-30-2020 End: 01-30-2020 Discharged Recurring Randall Kerr -[facility] [place] Procedures Date Procedure Procedure Detail Performing Clinician Start: 10-06-2021 US scan of gallbladder DO Randall Kerr Work Phone: Start: 09-06-2021 Radionuclide myocard ial perfusion stress study DO Randall Kerr Work Phone: Start: 03-19-2020 Antibody screen Comment on above: Performed By: #### T SCR30 ####[place] [id number] Plan of Treatment Date Care Activity Detail Author Start: 10-25-2021 End: 10-25-2021 Patient encounter procedure Departed Clinical [facility] Immunizations Immunization Date Immunization Notes Care Provider Fa cility 11-30-2020 COVID-19 Vaccine Moderna - Documentation Purposes Only Randall Kerr Other [facility] Other 11-02-2020 COVID-19 Vaccine Moderna - Documentation Purposes Only Randall Kerr Other [facility] Other NEGATED: Highlighted row has not occurred!01-25-2019 influenza, seasonal, injectable Patient Objection Randall Kerr Other [facility] Other Payers Date Payer Category Payer Self-pay [id number] 1965 Unknown [id number] 2.16.84 [id number] 1961 Unknown [id number] 02 [id number] Unknown [id number] 2.16.8 [id number] Unknown [id number] 2.16.8 [id number] Unknown [id number] 2.16.8 [id number] Unknown [id number] 2.16.8 [id number] Unknown [id number] 2.16.8 [id number] Unknown [id number] 2. [id number] Social History Date Type Detail Facility Tobacco smoking status NHIS Unknown if ever smoked [facility] Start: 1965 Sex Assigned At Female F [facility] Sex Assigned At Sex Assigned At Bir th [facility] Other Goals Date Patient Goal Desired Activity /State Clinical Notes 06-11-2014 to 08-30-2022 Note Date & Type Note Facility 08-30-2022 Evaluation note Encounter Date Diagnosis Assessment Notes Aug, Persistent cough (ICD-10 - R05.3) I did provide samples of trelegy in the office today. Educated the patient on how to use the inhaler. Chest XR was normal, patient is to call the office in two weeks with an update. Aug, Seasonal allergies (ICD-10 - J30.2) Patient did have a recent kenalog shot and admits it did not give much improvement in symptoms this time. Aug, Hyperlipidemia (ICD-10 - E78.5) Blood work ordered for next visit. [facility] Other 06-19-2023 Evaluation note* Encounter Date Diagnosis Assessment Notes Treatment Notes Treatment Clinical Notes Aug, Productive cough (ICD-10 - R05.8) [facility] Other 06-01-2023 Evaluation note* Encounter Date Diagnosis Assessment Notes Treatment Notes Treatment Clinical Notes Aug, Seasonal allergies (ICD-10 - J30.2) [facility] Other 05-30-2023 Evaluation note* Encounter Date Diagnosis Assessment Notes Treatment Notes Treatment Clinical Notes July, Cough (ICD-10 - R05.9) Escribed the above per bpk [facility] Other 04-20-2023 Evaluation note* Encounter Date Diagnosis Assessment Notes Treatment Notes Treatment Clinical Notes Jun, Acute non-recurrent maxillary sinusitis (ICD-10 - J01.00) Discussed diagnosis with patient. Will today for bacterial sinusitis based on physical exam and duration of symptoms. Take antibiotic as prescribed, complete entire course of therapy even if symptoms resolve. Reviewed allergies and recent antibiotic use with patient. Encouraged use of OTC Flonase. Supportive care as directed, push fluids and rest, Tylenol and/or Motrin as directed for discomfort/fever, warm moist compress over sinuses several times a day, cool mist humidification, nasal saline spray as directed. Symptoms should improve in the next 3 days, if symptoms persist follow up with PCP. Immediate eval for warning s/sx as discussed. Patient verbalizes understanding and is agreeable to treatment plan Jun, Acute cough (ICD-10 - R05.1) Send in Rx of Tessalon Perles and prednisone to use as directed. Follow above treatment plan recommendations. Jun, Contact with and (suspected) exposure to other viral communicable diseases (ICD-10 - Z20.828) [facility] Other 12-27-2022 NotePROCEDURE: XR FOOT LT MIN 3 VIEWS COMPARISON: None. HISTORY: Pain FINDINGS: BONES:Lucency identified through a plantar spur likely representing an acute nondisplaced fracture. No dislocation. Degenerative changes most significant at the first metatarsal-phalangeal joint SOFT TISSUES:Negative. No visible soft tissue swelling. EFFUSION:None visible. OTHER: Negative. IMPRESSION: Acute nondisplaced fracture of a plantar calcaneal enthesopathic spur Electronically authenticated by: COLETTE HUNT Date: 2022-03-08 09:[facility] Encounter Date Diagnosis Assessment Notes Treatment Notes Treatment Clinical Notes Feb, Obesity (ICD-10 - E66.9) We did discuss further medication options, including Wegovy, Ozempic, and Qsymia. She has tried Qsymia in the mast a few times and had c/o brain fog with this. She does enjoy the energy from adipex and Qsymia. I advised she was taking the highest dose of this, and that she may do better on a lower dose. She is in agreement with this, therefore this was provided today. She is to continue to monitor her diet and increase exercise, and we will continue to monitor. Feb, BMI 27.0-27.9,adult (ICD-10 - Z68.27) [facility] Other 11-03-2022 Evaluation note* Encounter Date Diagnosis Assessment Notes Treatment Notes Treatment Clinical Notes Jan, Obesity (ICD-10 - E66.9) Patient was encouraged to continue with her weight loss attempts, she is doing very well. We discussed using Qsymia after next month, she has taken this in the past but was only able to tolerate every other day. Discussed this at length with her, she has had bilateral knee replacements since the last time she was on Adipex/Qsymia, therefore will be able to continue her exercise regimen and hopefully be able to continue to loose or maintain her weight loss goals. [facility] Other 10-05-2022 Evaluation note* Encounter Date Diagnosis Assessment Notes Treatment Notes Treatment Clinical Notes Dec, Obesity (ICD-10 - E66.9) Dec, Body mass index 28.0-28.9, adult (ICD-10 - Z68.28) I am happy with pt's 12 pound weight loss this month. Pt reports her goal weight is 145. I did provide a refill of the above medication and encouraged her to continue monitoring her diet and increasing exercise. Dec, Screening for colon cancer (ICD-10 - Z12.11) Review of pt's negative cologuard with her today. I did recommend she repeat this in three years. [facility] Other 09-08-2022 Evaluation note* Encounter Date Diagnosis Assessment Notes Treatment Notes Treatment Clinical Notes Nov, BMI 30.0-30.9,adult (ICD-10 - Z68.30) ECHO and recent stress test reviewed with the patient that were both unremarkable. She has previously had good results with the Adipex and reports 'feeling the best she's ever felt in her life' while on it. I am agreeable with her restarting that today. Medication e-scribed. OARRS ran and reviewed. Nov, Obesity (ICD-10 - E66.9) Encouraged patient to monitor diet and increase exercise as tolerated. Nov, Palpitations (ICD-10 - R00.2) Patient reports these have resolved. Nov, GERD (gastroesophageal reflux disease) (ICD-10 - K21.9) Reviewed both Gallbladder and Upper GI with the patient with unremarkable findings. She has been taking baking soda and adjusted her diet stating that has improved her reflux and chest pains. Nov, History of COVID-19 (ICD-10 - Z86.16) Patient tested positive for covid 10/14/2021. She is doing well overall stating her biggest complaint was headaches/migraine s that have persisted. Nov, Cluster headache, not intractable, unspecified chronicity pattern (ICD-10 - G44.009) Nov, Renal cyst (ICD-10 - Q61.00) Anechoic cyst in the right kidney noted up to 18mm in size seen on Gallbladder US. Nov, Liver cyst (ICD-10 - K76.89) Left hepatic anechoic cyst seen on Gallbladder US up to 9mm in size. [facility] Other 07-14-2022 Evaluation note* Encounter Date Diagnosis Assessment Notes Treatment Notes Treatment Clinical Notes Sep, Wellness examination (ICD-10 - Z00.00) Personalized health advice was given to the beneficiary to health education of preventative counseling services or programs aimed at reducing identified risk factors and improving self-management or community-based lifestyle interventions to reduce health risks and promote self-management and wellness, including physical activity and nutrition. A written plan for screenings was discussed, flu vaccination, routine lab studies, eye exams, as well as risk factors for other medical problems. Sep, Hyperlipidemia (ICD-10 - E78.5) Cholesterol levels have increased from last check. I encouraged the patient to monitor diet and exercise. Sep, Persistent cough (ICD-10 - R05.3) We will continue to monitor. Sep, SOB (shortness of breath) (ICD-10 - R06.02) Echo and holter monitor ordered to rule out abnormalities. Sep, Chest discomfort (ICD-10 - R07.89) Reviewed stress test with normal results.Since the patient is still having the chest pain and heart palpitations we will order a echo and holter monitor. Sep, Screening for colon cancer (ICD-10 - Z12.11) Cologuard ordered. Sep, Gastro-esophageal reflux disease without esophagitis (ICD-10 - K21.9) We will order an upper GI and gallbladder ultrasound to rule out abnormalities. Sep, Heart palpitations (ICD-10 - R00.2) We will order a 48hour holter monitor along with a echo since the patient continues with heart palpitations. We will continue to monitor. [facility] Other 03-15-2022 NoteHNO ID: [id number] Author: Dina Roger MD Service: ? Author Type: Physician Type: Progress Notes Filed: 05/25/2021 7:27 AM Note Text: MUSCULOSKELETAL DISTANCE HEALTH VIRTUAL VISIT FOLLOW UP DOCUMENTATION NOTE This virtual visit was performed via video enabled technology, and the patient provided consent to be evaluated and managed using this virtual visit and video enabled technology. [facility]: [facility] Physicians Zoom Virtual Visit CHIEF COMPLAINT (CC): Mahesh Baxter is a 55 year old female is presenting for this distance health encounter for the following reason: S/p R TKA 04/01/2020 and L TKA 12/07/2020 HISTORY OF PRESENT ILLNESS (HPI): Doing extremely well. No pain in the right knee. Left knee continues to progress and improved. Moving into her busy season at work and navigating multiple steps. Still working on descending stairs with the left knee. Otherwise completely satisfied with her outcome and progress PAST MEDICAL HISTORY Diagnosis Date - Other affections of shoulder region, not elsewhere classified 08/09/2012 - Primary osteoarthritis of left knee - Primary osteoarthritis of right knee PAST SURGICAL HISTORY Procedure Laterality Date - PAST SURGICAL HISTORY OF 2003 total hysterectomy - PAST SURGICAL HISTORY OF 1992,1993 csections X2 Current Outpatient Medications on File Prior to Visit Medication Sig - docusate sodium (COLACE) 100 mg capsule Take 1 capsule by mouth twice daily as needed for constipation. take twice daily while taking opioid pain medication - aspirin, enteric coated (ECOTRIN LOW STRENGTH) 81 mg EC tablet Take 1 tablet by mouth twice daily. (Patient taking differently: Take 81 mg by mouth once daily. ) - TURMERIC ORAL Take by mouth once daily. (Patient not taking: Reported on 11/27/2020 ) - etodolac (LODINE) 400 mg tablet Take 1 tablet by mouth twice daily. - Fluticasone Propionate 250 mcg/actuation DsDv Inhale as instructed as needed. - ESTROGEN,KAVITA/ME-TESTOSTERONE (ESTRATEST ORAL) Take by mouth once daily. No current facility-administered medications on file prior to visit. ALLERGIES Allergen Reactions - Penicillins EXAMINATION: ROM ASSESSMENT: S/p R TKA 04/01/2020 and L TKA 12/07/2020 PLAN: Doing extremely well. Continue to focus on strengthening in the left knee more specifically. She is going into a busy season at work where she will be navigating stairs quite often which will be good rehab and physical therapy in itself. She can follow-up with me virtually in November 2021 for the 1 year bon of her left knee. We did discuss surveillance follow-up for the long-term aspect of the knees. All questions answered. Detailed instructions were reviewed with the patient and all questions were answered in detail. We discussed reasons for emergent need to refer to seek care in an Emergency Department or an [facility]. We discussed red flags associated with this condition and emergent treatment if they present. Patient voiced understanding and compliance with the above plan. I spent 10 minutes in the visit, with more than 50% of the total time of the visit in counseling and coordination of care. Dina Roger [facility]12-14-2021 NoteHNO ID: [id number] Author: Dina Roger MD Service: ? Author Type: Physician Type: Progress Notes Filed: 02/23/2021 8:06 AM Note Text: RETURN ENCOUNTER Chief Complaint: 3 months out from left total knee. Almost a year out from her right knee. HPI: Pain: none AROM: normal Function: normal Activity: Return to most routine activities Severity: Not applicable. Performing home exercise programming. FAMILY HISTORY Problem Relation Age of Onset - Hypertension Mother Current Outpatient Medications Medication Sig - docusate sodium (COLACE) 100 mg capsule Take 1 capsule by mouth twice daily as needed for constipation. take twice daily while taking opioid pain medication - aspirin, enteric coated (ECOTRIN LOW STRENGTH) 81 mg EC tablet Take 1 tablet by mouth twice daily. (Patient taking differently: Take 81 mg by mouth once daily. ) - TURMERIC ORAL Take by mouth once daily. (Patient not taking: Reported on 11/27/2020 ) - etodolac (LODINE) 400 mg tablet Take 1 tablet by mouth twice daily. - Fluticasone Propionate 250 mcg/actuation DsDv Inhale as instructed as needed. - ESTROGEN,KAVITA/ME-TESTOSTERONE (ESTRATEST ORAL) Take by mouth once daily. No current facility-administered medications for this visit. ALLERGIES Allergen Reactions - Penicillins Allergies, medications, past surgical history, family history and past medical history were reviewed per this encounter. Physical Examination: Region: Knee General Appearance: Appears healthy, well-nourished, no deformities. Left Exam: AROM: normal PROM: normal Point Tenderness location: none Swelling/Effusion: none Stability: normal Muscle Strength: normal Skin: normal Right Exam: AROM: normal PROM: normal Point Tenderness location: none Swelling/Effusion: none Stability: normal Muscle Strength: normal Skin: normal Assessment and Plan: Doing extremely well She has returned from her trip to [place] in [place] and did a lot of walking. No issues with this. Okay to continue to progress activities. Follow-up with me in 3 months, which can be virtually in regards to her left knee. We will see her at 1 year out in person for the left and right knee with x-rays and then transition to surveillance follow-up. Dina Roger MD [facility]11-[facility]-2021 NoteHNO ID: [id number] Author: Dina Roger MD Service: ? Author Type: Physician Type: Progress Notes Filed: 01/13/2021 4:19 PM Note Text: GLOBAL/POSTOP ENCOUNTER Chief Complaint: status post left total knee arthroplasty DOS 12/07/20 Mahesh Baxter is a 55 year old year old female who returned today for 5 weeks, 1 day post op: left TKA. She presents today ambulating with a cane. She rates her pain today at 3-4/10 and dull. She also reports some swelling. She reports having increased pain at night, 7/10 and throbbing and sometimes adds Tylenol 500mg to her regimen. She has been icing and taking Lodine for relief. HPI: Pain: tolerable AND appropriate for post-op period Function: improving Therapy: completed, continuing HEP ROS reviewed Allergies, medications, past surgical history and past medical history were reviewed per this encounter. Physical Examination: Region: Knee Left Exam: Incision: healing without evidence of infection AROM: 3-125 PROM: same as active Swelling/Effusion: none Stability: normal Muscle Strength: decreased Assessment and Plan: Doing well. Progressing. Continue with PT and HEP. May sink, submerge, and soak. Okay to travel to [place], encourage to work on extension and ROM. Follow up in 6 weeks, XR only if issue. Dina Roger MD [facility] Medicine[facility]11-02-2021 NoteHNO ID: [id number] Author: Sandi Gonzales RT(R) Service: Radiology Author Type: Technologist Type: Progress Notes Filed: 01/12/2021 8:03 AM Note Text: Radiology Service Progress Note PATIENT NAME: Mahesh Baxter DATE OF SERVICE: January 12, 2021 TIME: 8:03 AM PATIENT IDENTITY VERIFICATION COMPLETED USING TWO (2) IDENTIFIERS: Name and Date of confirmed by patient verbally. FALL SCREENING: Has the patient had 2 falls in the last year or 1 fall with injury or currently using an Ambulatory Assistive Device (Walker, Cane, Wheelchair, Crutches, etc.)? No PATIENT GENDER DATA: Female. status: : No status: NO. PATIENT RELEVANT IMPLANT DATA REVIEWED: Not Applicable RADIOLOGY DEPARTMENT: General X-ray: Exam(s) Completed: Lower Extremity X-Ray(s): Knee, AP / Lat / Merchant Left and Wt. Bearing PERIPHERAL IV DATA: Not applicable SIGNED BY: RT Constantin(R) January 12, 2021 8:03 [facility]10-12-2021 NoteHNO ID: [id number] Author: Jaren Manjarrez RN Service: ? Author Type: Registered Nurse Type: Progress Notes Filed: 12/22/2020 11:32 AM Note Text: GLOBAL/POSTOP ENCOUNTER Chief Complaint: S/P - L TKA 12/07/2020 Mahesh Baxter is a 55 year old year old female who returned today for 2 weeks post op: L TKA. HPI: Pain: Appropriate, Tolerable; Pt still taking [place] 1 every 6 Hr, alteranting with 400mg Ibuprofen. Pt requesting to transition to Lodine AND Tylenol as that worked better than before. Function: AMB w/ Cane. Therapy: C transition to PT ROS reviewed Allergies, medications, past surgical history and past medical history were reviewed per this encounter. Physical Examination: Region: Knee Left Knee Exam: Incision: healing without evidence of infection. Inferior Suture Tail removed. No evidence of superior suture tail. Bandaid applied over inferior suture tail. AROM: decreased extension and decreased flexion PROM: decreased extension and decreased flexion Swelling/Effusion: moderate Stability: normal Muscle Strength: decreased Assessment and Plan: Pt doing ok. Pt must focus on Full Extension, increasing ROM. Continue HEP AND PT. Jaren Manjarrez RN Pt seen for RN post op visit. Dr. SIMMONS also saw pt and was utilized as resource/ oversight in clinic. Dina Roger MD Sports Medicine/[facility]opa[facility]09-29-2021 NoteHNO ID: [id number] Author: Ana Calvert RN Service: Care Management Author Type: Registered Nurse Type: Care Mgt Progress Note Filed: 12/09/2020 4:06 PM Note Text: CARE MANAGEMENT DISCHARGE NOTE SERVICE DATE: 12/09/2020 SERVICE TIME: 4:03 PM LOS: 0 days Admission Date: 12/07/2020 DISCHARGE ARRANGEMENT (list agency and phone number) Discharge Arrangement: Home Snf Care: Nursing Provider Name: [facility] CAREGIVER ASSESSMENT: HANDOFF COMMUNICATION: Handoff to: Primary Care Physician Primary Care Physician Name/Phone: Randall Kerr, [phone] TRANSPORTATION ARRANGEMENTS: Transportation Arrangements: N/A ADDITIONAL CONTACT RESOURCES: Pt is accepted by [facility]. The [facility] was notified of dc today. The [facility] will contact the pt directly with the SOC. The pt verbalized agreement with this dc plan. SIGNATURE: Ana Calvert RN PATIENT NAME: Mahesh Baxter DATE: December 09, 2020 TIME: 4:03 PM PAGER/CONTACT #: [phone] NoteHNO ID: [id number] Author: Rut A Bernath, HAT FINISHING MATERIALS PREPARER.HOLISTIC SPECIALIST Service: Orthopaedic Surgery Author Type: Nurse Specialist Type: Progress Notes Filed: 12/09/2020 1:38 PM Note Text: ORTHOPAEDIC SURGERY POSTOP PROGRESS NOTE Patient Name: Mahesh Baxter Account #: Data Unavailable Admission Date: 12/07/2020 Date of Evaluation: 12/09/2020 Time of Evaluation: 9:26 AM POD # 2 S/P: left Total knee arthroplasty ASSESMENT: POD # 2 S/P: left Total knee arthroplasty - Appropriate postop course - Orthopedically stable - VSS - pain well controlled - mobilizing well PLAN: 1. Postop course: - Physical therapy, weightbearing as tolerated - Maintain dressing, silver aquacel to remain for 7 days - Dressing changed, cotton fluff removed, aquacel intact - Discontinue femoral nerve catheter - monitor IANDO's - ice and elevation - ASA 81mg BID for 30 days, PAS, early ambulation 2. Medical intervention: Per primary team 3. Disposition: Discharge home with [facility] INTERVAL HPI: reports appropriate postop pain, and denies bleeding, drainage, nausea, vomiting, light headedness, swelling, itching, calf pain, numbness and tingling. Overnight events noted: none. OBJECTIVE: BP 129/69 Pulse 100 Temp 37.2 ?C (99 ?F) (Oral) Resp 16 Ht 157.5 cm (5' 2.01 ) Wt 76.2 kg (168 lb) SpO2 95% BMI 30.72 kg/m? Intake/Output Summary (Last 24 hours) at 12/09/2020 0926 Last data filed at 12/09/2020 0800 Gross per 24 hour Intake 3155 ml Output 0 ml Net 3155 ml Reinfusion: N/A left knee exam: Incision: Appropriate postop appearance No evidence of erythema, warmth, discharge or drainage Dressing clean/dry/intact Left Lower Extremity: Dorsalis pedis pulses palpable. Dorsi flexion 5/5. Plantar flexion 5/5. Extensor hallucis extension: 5/5. Sensory intact to light touch Dressing clean, dry and intact. Surgical site no drainage and Aquacell intact. Compartments: soft Pain with PROM: Negative Problem Review and Assessment: Skin and Abdominal Wall: Patient monitored, no new events overnight Cardiovascular and Vascular: Patient monitored, no new events overnight Respiratory: Patient monitored, no new events overnight Endocrine and Metabolic: Patient monitored, no new events overnight Gastrointestinal: Patient monitored, no new events overnight Genitourinary and Nephrology: Patient monitored, no new events overnight Behavioral, Cerebrovascular and Nervous: Patient monitored, no new events overnight Infectious: Patient monitored, no new events overnight Labs: CBC: WBC 9.29 12/08/2020 Hemoglobin 12.1 12/08/2020 Hematocrit 36.2 12/08/2020 Platelet Count 169 12/08/2020 CMP: Sodium 136 12/08/2020 Potassium 4.7 12/08/2020 BUN 10 12/08/2020 Creatinine 0.85 12/08/2020 Glucose 133 12/08/2020 COAGS: No results found for this basename: aptt,inr URINALYSIS: No results found for this basename: uket,nitrites,spgr,uprot,leukest,uwbc,ubacteria SED RATE/CRP: No results found for this basename: wsr:*,crp:* SURGICAL PATHOLOGY: N/A FLUID ANALYSIS: N/A Imaging: Not applicable. ELECTRONICALLY SIGNED: Rut Chung APRN.HOLISTIC SPECIALIST 12/09/2020 9:26 [facility]09-28-2021 NoteHNO ID: [id number] Author: Dina Roger MD Service: Orthopaedic Surgery Author Type: Physician Type: Progress Notes Filed: 12/08/2020 3:27 PM Note Text: ORTHOPAEDIC SURGERY POSTOP PROGRESS NOTE Patient Name: Mahesh Baxter Account #: Data Unavailable Admission Date: 12/07/2020 Date of Evaluation: 12/08/2020 Time of Evaluation: 8:41 AM POD # 1 S/P: left Total knee arthroplasty ASSESMENT: POD # 1 S/P: left Total knee arthroplasty - Appropriate postop course - Orthopedically stable - VSS - pain controlled - reported that oxycodone last surgery cased anxiety/jitters. She has peripheral nerve block, tramadol and norco available at present. Using tramadol with good relief. PLAN: 1. Postop course: - Physical therapy, weightbearing as tolerated - Antibiotics, post-op antibiotics per protocol - Labs, monitoring daily - Fluid management, discontinue IVF today with good PO, or 24 hours post-op, defer to [facility] protocol for IVF - Maintain dressing,silver surgical dressing, cotton wrap, thigh high ROSSI - Continue peripheral nerve catheter per [facility] recommendations, Anticipate DC tomorrow - monitor IANDO's - ice and elevation - ASA 81mg BID for 30 days, ROSSI, Early ambulation 2. Medical intervention: Per primary team 3. Disposition: D/C planning anticipate DC home with [facility] tomorrow pending progress INTERVAL HPI: reports appropriate postop pain, and denies bleeding, drainage, nausea, vomiting, light headedness, swelling, itching, calf pain, numbness and tingling. Overnight events noted: none. OBJECTIVE: BP 140/73 Pulse 91 Temp 36.9 ?C (98.4 ?F) (Oral) Resp 14 Ht 157.5 cm (5' 2.01 ) Wt 76.2 kg (168 lb) SpO2 96% BMI 30.72 kg/m? Intake/Output Summary (Last 24 hours) at 12/08/2020 0841 Last data filed at 12/07/2020 2200 Gross per 24 hour Intake 1060 ml Output 25 ml Net 1035 ml Reinfusion: N/A left knee exam: Incision: Appropriate postop appearance No evidence of erythema, warmth, discharge or drainage Dressing clean/dry/intact Left Lower Extremity: Dorsalis pedis pulses palpable. Dorsi flexion 5/5. Plantar flexion 5/5. Extensor hallucis extension: 5/5. Sensory intact to light touch Dressing clean, dry and intact. Surgical site no drainage. Compartments: soft Pain with PROM: Negative Problem Review and Assessment: Skin and Abdominal Wall: Patient monitored, no new events overnight Cardiovascular and Vascular: Patient monitored, no new events overnight Respiratory: Patient monitored, no new events overnight Endocrine and Metabolic: Patient monitored, no new events overnight Gastrointestinal: Patient monitored, no new events overnight Genitourinary and Nephrology: Patient monitored, no new events overnight Behavioral, Cerebrovascular and Nervous: Patient monitored, no new events overnight Infectious: Patient monitored, no new events overnight Labs: CBC: WBC 4.32 11/27/2020 Hemoglobin 15.0 11/27/2020 Hematocrit 47.0 11/27/2020 Platelet Count 216 11/27/2020 CMP: Sodium 137 11/27/2020 Potassium 4.8 11/27/2020 BUN 14 11/27/2020 Creatinine 0.90 11/27/2020 Glucose 91 11/27/2020 COAGS: No results found for this basename: aptt,inr URINALYSIS: No results found for this basename: uket,nitrites,spgr,uprot,leukest,uwbc,ubacteria SED RATE/CRP: No results found for this basename: wsr:*,crp:* SURGICAL PATHOLOGY: N/A FLUID ANALYSIS: N/A Imaging: Postop films revealed intact hardware. ELECTRONICALLY SIGNED: Rut Chung APRN.[facility] 12/08/2020 8:41 AM [facility] STAFF PHYSICIAN NOTE OF PERSONAL INVOLVEMENT IN CARE PA-C/STACK SUPERVISOR's history reviewed. I have personally examined the patient and repeated the trivedi components of the exam/history. The assessment and plan were formulated and discussed with the PA-C/STACK SUPERVISOR. Please see my below dicatation for all pertinent highlights, including historical emphasis, clinical exam, tests ordered, and the plan moving forward. See PA-C/STACK SUPERVISOR's note for additional details. Regarding the plan, we have had an in depth discussion today regarding the current symptomatology and possible causes for the current symptoms. This discussion included a personal review of all the available imaging studies with the patient, pertinent lab values, and highlighting trivedi findings. In Summary: Highlights: Called and spoke with patient. Doing very well. Thinks that motion is better than opposite total knee at this point and early on. Plan for discharge home tomorrow. We will see in the a.m. 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 Last discharge within 30 days: No Advance Directive: Current Advance Directive: Health Care Power of Global Director Air And Climate Change In Chart: Yes Up To Date and Valid: Yes Health LiteracyHow often do you need to have someone help you when you read instructions, pamphlets, or other written material from your doctor or pharmacy? : 1 - Never How confident are you filling out medical forms by yourself?: 1 - Extremely If Patient scores > 3 on either question, the following interventions were put into place:: Patient did not score > 3 on either question. Baseline Mental Status Prior to this Illness what was the patient's Baseline Mental Status?: Alert AND Oriented Prior to this illness, has anyone described the patient having any of the following behaviors?: Not Applicable Relationship of the informant to the patient:: Self Functional Status: Independent Does Patient Currently Receive Any Community Services or Home Care?: None Has the Patient Been in a Intermediate Facility in the Past 30 days?: No SOCIAL: Living Arrangements: Home Lives With: Spouse Financial Resources: Employed Primary Contact: Extended Emergency Contact Information Primary Emergency Contact: Benji Baxter Address: [address] [place] [address] [facility] Mobile Relation: Spouse Secondary Emergency Contact: Dee Roberts Address: [address] [place] [address] [facility] Mobile Relation: Daughter Supportive Patient Contact:: Yes Contact Resources: Significant Other Caregiver AssessmentCaregiver is ready, willing and able to meet the patient's needs as recommended by the inter-professional team:: Yes Does the patient have an acute stroke diagnosis, or has the patient had a stroke during this admission?: No Patient's transition needs and plan for meeting these needs: [facility] Patient's perception of need for this admission: L knee pain L knee surgery Medication Adherance I am convinced of the importance of my prescription medication: 0 - Agree Completely I worry that my prescription medication will do more harm than good to me : 0 - Disagree Mostly I feel financially burdened by my eyn-su-ufcrea expenses for my prescription medication:: 0 - Disagree Mostly Risk Score: 0 Patient is categorized as: Low risk < 2 Are you interested in bedside delivery of your medications? No Is Patient Psychosocially Complex?: No ASSESSMENT AND PLAN: Medical Needs: Medical Needs: None Psychosocial Needs: Psychosocial Needs: None FREEDOM OF CHOICE EXPLAINED: [place] of Choice Given: Yes Level of Care Discussed: Home Care Provider List: Home Care Provider list within the patient's requested geographic area shared with the patient/family: Yes within: 10 miles of zip code: [address] POTENTIAL TRANSITION PLANS Home OT/PT This CM met with the pt at the bedside for assessment. The pt is alert and oriented x3. She just returned from ambulating to the bathroom. Her is visiting. The Patient was independent with self care, Prior To Admission. PT is recommending Home care. The pt states she would like [facility]. She will [place] staying a new address [facility]. . The address will be [facility] to [facility]. The pt states she has a walker and other DME form her previous surgery. CM will assist with skilled dc needs. SIGNATURE: Ana Calvert RN PATIENT NAME: Mahesh Baxter DATE: December 07, 2020 TIME: 2:07 PM PAGER/CONTACT #: [phone] NoteHNO ID: [id number] Author: Nick Kiran DO Service: Pain Management Author Type: Anesthesiologist Type: Anesthesia Procedure Notes Filed: 12/07/2020 11:21 AM Note Text: ANESTHESIOLOGY PROCEDURE NOTE Peripheral Nerve Block General Information Procedure Start Time/Medication Administration: 12/07/2020 11:08 AM Procedure End time: 12/07/2020 11:13 AM Patient location during procedure: PACU Timeout Performed Pre-procedure: timeout performed Consent Obtained: Yes Patient 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, 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 Reason for block: post-op pain management/at surgeon's request Staffing Anesthesiologist: Rock Maciel DO Preparation Sterility Preparation: hand hygiene performed prior to procedure, surgical cap used, mask used, sterile drape used during line insertion, skin prep agent completely dried prior to procedure Sterility Technique Not Completely Performed Due to Extreme Emergency: No Site Prep: Chloraprep Pre-Procedure Neuro Exam Location: LLE Sensory: intact Motor: intact Procedure Details Patient Position: supine Monitoring: Pulse OX, EKG and NIBP Block Type Lower Extremity: distal femoral (adductor canal) and femoral Approach: anterior Multiple Levels: No Laterality: left Injection Technique: catheter Ultrasound Guided: Yes Image in Chart: yes Local Infiltration: Yes Needle Needle Type: Tuohy Needle Gauge: 18 G Needle Length: 10 cm Needle Localization: anatomical landmarks and ultrasound Needle Insertion Depth: 5 cm Catheter Type: E-Cath Plus Catheter Size: 20 G Catheter at Skin Depth: 10 cmNo Assessment Injection assessment: negative aspiration, no paresthesia on injection, incremental injection and local visualized surrounding nerve on ultrasound Paresthesia: none Post-Procedure Neuro Exam Expected Regional Anesthesia: Yes Medications Administered Ropivacaine (PF) 5 mg/mL (0.5 %) injection (NAROPIN), 15 mL SIGNATURE: Nick Kiran DO PATIENT NAME: Mahesh Baxter DATE: December 07, 2020 TIME: 11:20 AM CSN: [id number] NoteHNO ID: [id number] Author: FINA Purvis Service: Anesthesiology Author Type: Superintendent Overhead Distribution Type: Anesthesia Procedure Notes Filed: 12/07/2020 9:41 AM Note Text: ANESTHESIOLOGY PROCEDURE NOTE Spinal Block General Information Procedure Start Time/Medication Administration: 12/07/2020 7:52 AM Patient location during procedure: OR Timeout Performed Pre-procedure: timeout performed Consent Obtained: Yes Patient 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, 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 Reason for Block: primary surgical anesthetic Staffing Anesthesiologist: Jace Rodney MD CAA: FINA Purvis Performed by: anesthesiologist, SALVADOR and CAA student Preparation Sterility Preparation: hand hygiene performed prior to procedure, surgical cap used, mask used, sterile drape used during line insertion, skin prep agent completely dried prior to procedure Site Prep: Betadine Procedure Details Patient Position: sitting Ultrasound Guided: No Monitoring: Pulse Ox and NIBP Approach: Midline Location: L3-4 Injection Technique: single-shot Needle Needle Type: pencil-tip Needle Gauge: 25 G Needle Length: 3.5 in Assessment Events: tolerated well Medications Administered Bupivacaine-dextrose 0.75 % (7.5 mg/mL) injection (SENSORCAINE MPF SPINAL), 1.6 mL fentaNYL 50 mcg/mL injection (SUBLIMAZE) (Spinal), 15 mcg Comments Performed by PITO Velasco SIGNATURE: FINA Puvris PATIENT NAME: Mahesh Baxter DATE: December 07, 2020 TIME: 8:04 AM CSN: [id number] NoteHNO ID: [id number] Author: Lachelle Mejias RN Service: ? Author Type: Registered Nurse Type: Progress Notes Filed: 11/14/2020 9:52 AM Note Text: Patient referred to Blood Management for pre-surgical optimization. Current and complete lab data unavailable. Unable to complete evaluation. [facility]09-01-2021 NoteHNO ID: [id number] Author: Jaren Manjarrez RN Service: ? Author Type: Registered Nurse Type: Progress Notes Filed: 11/11/2020 11:34 AM Note Text: Surgery planning information Dina Roger M.D. Orthopaedic Surgeon [facility] [phone] - office [phone] - fax Dear Mahesh Baxter, It was a pleasure speaking and meeting with you recently and we thank you for entrusting Dr. Roger and our team with your upcoming surgical needs. Per our conversation, you are scheduled for surgery with Dr. Roger on Procedure Date: December 07, 2020 Procedure Location: [place] [address] *PLEASE call [facility] (Anesthesia) at [phone] to schedule your Pre Operative Anesthesia appointment to review your health history. Arrival Time Day of Surgery: You will receive a call from the Orthopaedic Surgical Schedulers the day/ afternoon prior to your procedure. If your procedure is scheduled on a Monday, you may receive your arrival time on Monday/ Monday prior to your surgical procedure. You may take your morning medication(s) with water the day of your procedure unless otherwise advised by your Physician or PreOperative Anesthesia Group. Per the anesthesia guidelines, Mahesh Baxter 's last clear liquids should be 2 hours prior to arrival time. Last light-solid foods should be 6 hours prior to arrival time. Last heavy-solid foods should be 8 hours prior to arrival time. When patients inquire ? ?should I wake up early to eat so I won't be starving?, I generally do not advise a surgical patient to do so. It is my responsibility to advocate for the patient and advise them to be as safe as possible prior to any procedure to prevent any delays or potential complications / aspiration of foreign debris in the lungs. Also, should any earlier procedures be cancelled, the next patient who is ready will be moved to the earlier time slot. Please don't hesitate to call/ email/ MyChart should you have any questions or concerns. *PLEASE call [facility] (Anesthesia) at [phone] to schedule your Pre Operative Anesthesia appointment to review your health history. * PLEASE call [phone] to schedule your Pre Operative COVID-19 test/ appointment to. You will need to complete a COVID-19 test within 3 days of surgery. Completing the COVID-19 pre-surgical test is mandatory for all surgical patients. If this test is not completed within 72 hours prior to your surgical date, the procedure will be cancelled. Once you have visited the testing site, you are to self-quarantine prior to your surgical procedure to minimize the risk of exposure / infection. Our caregiver team greatly appreciates your adherence to this protocol in the effort to reduce the propagation of COVID-19, protecting our team, and surgical theatre. *Walker ? Please ensure your walker is in your pick-up vehicle on day of discharge. If you do not have a walker, you can purchase one at a local pharmacy. Alternatively, we can place an order for a walker. Please let us know [place] and the order will be placed. Once we place the order, please contact Physical therapy to schedule and appointment to receive your walker and you can also be taught proper technique : [phone] Please refer to the Total Joint replacement Book for instructions on proper walker use. *You are required to arrive with a tank driver to ensure safe travel home as you will be receiving anesthesia and will not be able to operate a motorized vehicle the day of surgery. If you have any prior medical history of a blood clot or skin infection or allergies to medications please make sure to update our team [place]. As part of preparing you for surgery, in addition to the aforementioned appointments, you also may need to complete additional laboratory tests should [facility] deem it necessary. *Please Call [phone] [place] to schedule your COVID-19 Test *Please Call [phone] [facility] to schedule your [facility] Virtual Visit PRE-SURGICAL WASH WITH HIBICLENS? INSTRUCTIONS Please purchase at your local drug store this special soap (Hibiclens). Or if you have been given a bottle (s) of Hibiclens?(Chlorhexidine Gluconate solution 4.0% w/v) this is for you to use the night before and the morning of surgery. This special soap is used to reduce the germs on your skin to best prepare you for your upcoming surgery. Please follow the instructions below carefully PRIOR to your washing with Hibiclens?: 1. If you have any open skin areas like abrasions or a wound please check with the Preop testing department ([facility]) or your surgeon?s office before using this product. 2. If you have an allergy to Chlorhexidine Gluconate do NOT use this product. Please call the Preop testing department or your surgeon?s office for alternate instructions. 3. DO NOT USE THIS SOAP ON YOUR FACE OR ON YOUR PRIVATE (GENITAL) AREA 4 (more content not included)...[facility]07-06-2021 NoteHNO ID: [id number] Author: Dina Roger MD Service: ? Author Type: Physician Type: Progress Notes Filed: 09/15/2020 8:14 AM Note Text: MUSCULOSKELETAL DISTANCE HEALTH VIRTUAL VISIT FOLLOW UP DOCUMENTATION NOTE This virtual visit was performed via video enabled technology, and the patient provided consent to be evaluated and managed using this virtual visit and video enabled technology. Distance Health Platform: [facility] Zoom Virtual Visit CHIEF COMPLAINT (CC): Mahesh Baxter is a 55 year old female is presenting for this distance health encounter for the following reason: Left knee MRI review HISTORY OF PRESENT ILLNESS (HPI): Intermittent symptoms of the left knee. Similar to the state of her right knee prior to total knee arthroplasty. Symptoms can be debilitating when they occur. Reports mechanical symptoms and giving out pain and limited range of motion. Reports that her right knee is becoming her stronger knee. PAST MEDICAL HISTORY Diagnosis Date - Other affections of shoulder region, not elsewhere classified 08/09/2012 - Primary osteoarthritis of right knee PAST SURGICAL HISTORY Procedure Laterality Date - PAST SURGICAL HISTORY OF 2003 total hysterectomy - PAST SURGICAL HISTORY OF 1992,1993 csections X2 Current Outpatient Medications on File Prior to Visit Medication Sig - etodolac (LODINE) 400 mg tablet Take 1 tablet by mouth twice daily as needed. - acetaminophen (TYLENOL) 500 mg tablet Take 2 tablets by mouth every 6 hours as needed. - aspirin, enteric coated (ASPIRIN, ENTERIC COATED) 81 mg EC tablet Take 1 tablet by mouth twice daily. - TURMERIC ORAL Take by mouth once daily. - etodolac (LODINE) 400 mg tablet Take 1 tablet by mouth twice daily. - Fluticasone Propionate 250 mcg/actuation DsDv Inhale as instructed as needed. - ESTROGEN,KAVITA/ME-TESTOSTERONE (ESTRATEST ORAL) Take by mouth once daily. No current facility-administered medications on file prior to visit. ALLERGIES Allergen Reactions - Penicillins MRI: Shows tricompartmental osteoarthritis with subchondral edema most notable in the medial patellofemoral compartments. ASSESSMENT: (M17.12) Arthritis of left knee (primary encounter diagnosis) PLAN: Reviewed algorithm and treatment plan and options for knee arthritis. We did discuss corticosteroid injections and viscosupplementation. Again, patient has had these treatments in the past in her shoulder and was not satisfied with the duration of symptoms her outcome is the only gave approximately 1 day of relief. Based on her outcome of her right total knee arthroplasty she is interested in the left total knee but would like to perform this in the fall. Plan for Allen triathlon total knee system with cementless components. Plan for aspirin for DVT prophylaxis. Detailed instructions were reviewed with the patient and all questions were answered in detail. We discussed reasons for emergent need to refer to seek care in an Emergency Department or an Orthopaedic Acute Care Center. We discussed red flags associated with this condition and emergent treatment if they present. Patient voiced understanding and compliance with the above plan. I spent 15 minutes in the visit, with more than 50% of the total time of the visit in counseling and coordination of care. Dina Roger [facility]06-15-2021 NoteHNO ID: [id number] Author: Dina Roger MD Service: ? Author Type: Physician Type: Progress Notes Filed: 08/25/2020 10:31 AM Note Text: RETURN ENCOUNTER Chief Complaint: Left Knee - Pt Lee Pop, weakness, knee giving out. Pain, Swelling. RIGHT KNEE - S/P TKA 5 months - Pt doing well. Doing extremely well and patient satisfied with outcome. HPI: Left Knee - Popped 08/06/20 Pain: worse AROM: worse Function: worse Date of Injury: 08/06/2020 Activity: ADLs, PT for S/P R TKA Severity: Moderate Left knee twisted around and felt a pop. Pain was localized to the medial aspect of the knee. Noted immediate swelling that is only mildly improved. She does report mechanical symptoms. These mechanical symptoms are interfering with her activities of daily living and her range of motion. No family history on file. ROS reviewed on [facility] form which is negative except HPI. Current Outpatient Medications Medication Sig - acetaminophen (TYLENOL) 500 mg tablet Take 2 tablets by mouth every 6 hours as needed. - aspirin, enteric coated (ASPIRIN, ENTERIC COATED) 81 mg EC tablet Take 1 tablet by mouth twice daily. - TURMERIC ORAL Take by mouth once daily. - etodolac (LODINE) 400 mg tablet Take 1 tablet by mouth twice daily. - Fluticasone Propionate 250 mcg/actuation DsDv Inhale as instructed as needed. - ESTROGEN,KAVITA/ME-TESTOSTERONE (ESTRATEST ORAL) Take by mouth once daily. No current facility-administered medications for this visit. ALLERGIES Allergen Reactions - Penicillins Allergies, medications, past surgical history, family history and past medical history were reviewed per this encounter. Physical Examination: Region: Knee General Appearance: Appears healthy, well-nourished, no deformities. Left Exam: AROM: decreased flexion PROM: decreased flexion Point Tenderness location: medial jointline and lateral jointline Swelling/Effusion: Mild Stability: normal Muscle Strength: normal Sensation:normal Reflexes:normal Special Tests: Glenys's positive Skin: normal Right Exam: AROM: normal PROM: normal Point Tenderness location: none Swelling/Effusion: none Stability: normal Muscle Strength: normal Sensation:normal Reflexes:normal Special Tests: None Skin: normal Images have been reviewed and discussed with patient. Left knee x-rays show maintained joint space without any significant spurring. Assessment and Plan: Left knee medial meniscus tear, acute MRI to evaluate for medial meniscus tear in the setting of acute injury with ongoing mechanical symptoms that are interfering with activities of daily living. This is justified for preoperative planning and given mechanism of injury and current symptoms. Follow up after MRI Right knee is 5 months out doing extremely well. Continue with home exercise programming Dina Roger MD Sports Medicine/[facility]th[facility]06-[facility]-2021 NoteHNO ID: [id number] Author: RT Amos(R) Service: Radiology Author Type: Wave Solder Offbearer Type: Progress Notes Filed: 08/25/2020 8:52 AM Note Text: Radiology Service Progress Note PATIENT NAME: Mahesh Baxter DATE OF SERVICE: August 25, 2020 TIME: 8:51 AM PATIENT IDENTITY VERIFICATION COMPLETED USING TWO (2) IDENTIFIERS: Name and Date of confirmed by patient verbally. FALL SCREENING: Has the patient had 2 falls in the last year or 1 fall with injury or currently using an Ambulatory Assistive Device (Walker, Cane, Wheelchair, Crutches, etc.)? No PATIENT GENDER DATA: Female. status: : No status: NO. PATIENT RELEVANT IMPLANT DATA REVIEWED: Not Applicable RADIOLOGY DEPARTMENT: General X-ray: Exam(s) Completed: Lower Extremity X-Ray(s): Knee, AP / Lat / Tunne / Merchant Left and Wt. Bearing PERIPHERAL IV DATA: Not applicable SIGNED BY: RT Amos(R) August 25, 2020 8:51 [facility]04-13-2021 NoteHNO ID: [id number] Author: Madison Thornton (Rt) Service: Radiology Author Type: Wave Solder Offbearer Type: Progress Notes Filed: 06/23/2020 9:20 AM Note Text: Radiology Service Progress Note PATIENT NAME: Mahesh Baxter DATE OF SERVICE: June 23, 2020 TIME: 9:19 AM PATIENT IDENTITY VERIFICATION COMPLETED USING TWO (2) IDENTIFIERS: Name and Date of confirmed by patient verbally. FALL SCREENING: Has the patient had 2 falls in the last year or 1 fall with injury or currently using an Ambulatory Assistive Device (Walker, Cane, Wheelchair, Crutches, etc.)? No PATIENT GENDER DATA: Female. status: : No status: NO. PATIENT RELEVANT IMPLANT DATA REVIEWED: Not Applicable RADIOLOGY DEPARTMENT: General X-ray: Exam(s) Completed: Lower Extremity X-Ray(s): Knee, AP / Lat / Merchant Right and Wt. Bearing: PERIPHERAL IV DATA: Not applicable SIGNED BY: RT Renetta June 23, 2020 9:19 [facility]04-13-2021 NoteHNO ID: [id number] Author: Dina Roger Service: ? Author Type: Physician Type: Progress Notes Filed: 06/23/2020 9:54 AM Note Text: GLOBAL/POSTOP ENCOUNTER Chief Complaint: s/p 2 month TKA - Right Mahesh Baxter is a 54 year old year old female who returned today for 9 weeks post op: R Knee TKA. HPI: Pt states Ted is still v. Beneficial - w/o Knee aches - all joints do feel better. Pain: Tolerable Function: WB, Decreased Flexion Therapy: HEP ROS reviewed Allergies, medications, past surgical history and past medical history were reviewed per this encounter. Physical Examination: Region: Knee Right Knee Exam: Incision: healing without evidence of infection AROM: 0-120 (left is 0-130) PROM: decreased flexion Swelling/Effusion: none Stability: normal Muscle Strength: decreased XR: stable appearing hardware with anatomic replacement without complication. Assessment and Plan: Pt very well at 2 months Cont ROM and strengthening. Cont HEP. Lodine written, further prescriptions per PCM to monitor kidney function F/u in 2 months Virtual or in person, no XR unless issue Dina Roger MD Sports Medicine/[facility]thopaedic SurgeryL[facility]01-21-2021 NoteHNO ID: [id number] Author: Natalya (Rn) KUMAR Wen Service: Care Management Author Type: Registered Nurse Type: Care Mgt Progress Note Filed: 04/02/2020 4:08 PM Note Text: CARE MANAGEMENT DISCHARGE NOTE SERVICE DATE: 04/02/2020 SERVICE TIME: 4:07 PM LOS: 1 day Admission Date: 04/01/2020 DISCHARGE ARRANGEMENT (list agency and phone number) Discharge Arrangement: Home Snf Care: PT;OT Provider Name: [facility] CAREGIVER ASSESSMENT: Caregiver is ready, willing and able to meet the patient's needs as recommended by the inter-professional team:: Yes Does the patient have an acute stroke diagnosis, or has the patient had a stroke during this admission?: No Patient's transition needs and plan for meeting these needs: homecare HANDOFF COMMUNICATION: Handoff to: Primary Care Physician Primary Care Physician Name/Phone: Randall Kerr [phone] TRANSPORTATION ARRANGEMENTS: Transportation Arrangements: Car(Spouse to transport at d/c) Discharge Information Row Name Admission (Current) from 04/01/2020 in [facility] Home Health Care Agency [facility] Start of Care ? 24-48 hours after d/c Needs Prior to Discharge: Ready for Discharge Pt medically ready for discharge and is agreeable. Plan to discharge to home with [facility] for home PT/OT with SOC 24-48hours after d/c. Patient and family aware of discharge time. Spouse to transport home at d/c. Floor RN updated w/ discharge plans. Referral updated. 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 Advance Directive: Current Advance Directive: Health Care Power of Global Director Air And Climate Change In Chart: Yes Up To Date and Valid: Yes Health LiteracyHow often do you need to have someone help you when you read instructions, pamphlets, or other written material from your doctor or pharmacy? : 1 - Never How confident are you filling out medical forms by yourself?: 1 - Extremely If Patient scores > 3 on either question, the following interventions were put into place:: Patient did not score > 3 on either question. Baseline Mental Status Prior to this Illness what was the patient's Baseline Mental Status?: Alert AND Oriented Prior to this illness, has anyone described the patient having any of the following behaviors?: Not Applicable Relationship of the informant to the patient:: Self Functional Status: Independent Does Patient Currently Receive Any Community Services or Home Care?: None Equipment Prior to Admission: Crutches;Walker;Cane Has the Patient Been in a Intermediate Facility in the Past 30 days?: No SOCIAL: Living Arrangements: Home Lives With: Spouse Financial Resources: Employed Primary Contact: Extended Emergency Contact Information Primary Emergency Contact: Benji Baxter Address: [address] [place] [address] [facility] Mobile Relation: Spouse Secondary Emergency Contact: Dee Roberts Address: [address] [place] [address] [facility] Mobile Relation: Daughter Supportive Patient Contact:: Yes Contact Resources: Family Family Name/Phone: Benji Baxter (SPO) [phone] (M) Caregiver AssessmentCaregiver is ready, willing and able to meet the patient's needs as recommended by the inter-professional team:: Yes Does the patient have an acute stroke diagnosis, or has the patient had a stroke during this admission?: No Patient's transition needs and plan for meeting these needs: homecare Patient's perception of need for this admission: R TKR Medication Adherance I am convinced of the importance of my prescription medication: 0 - Agree Mostly I worry that my prescription medication will do more harm than good to me : 0 - Disagree Mostly I feel financially burdened by my [id number]-ff-ivswlg expenses for my prescription medication:: 0 - Disagree Mostly Risk Score: 0 Patient is categorized as: Low risk < 2 Are you interested in bedside delivery of your medications? No Is Patient Psychosocially Complex?: No ASSESSMENT AND PLAN: Medical Needs: Medical Needs: None Psychosocial Needs: Psychosocial Needs: None FREEDOM OF CHOICE EXPLAINED: [place] of Choice Given: Yes Level of Care Discussed: Home Care Financial Disclosure Provided: Yes Financial Disclosure Comments: via careport Provider List: Home Care Provider list within the patient's requested geographic area shared with the patient/family: Yes within: [place] miles of [facility] code: [address] Quality and resource use metrics shared with the patient that are relevant to the patient's goals of care and treatment preferences:: Yes Metrics: Potentially Preventable 30-day Post Discharge Readmission Rates;Functional Status POTENTIAL TRANSITION PLANS Home OT/PT;To Be Determined CM met with patient and spouse at the bedside. Pt admit with scheduled R TKR. PT recommends home therapy, homecare list provided with preference 1) [facility] 2) [facility] 3) [facility]. Referrals sent, will need homecare order F2F. Spouse to transport home at d/c. SIGNATURE: Natalya Wen RN PATIENT NAME: Mahesh Baxter DATE: April 02, 2020 TIME: 1:55 PM PAGER/CONTACT #: [phone] [id number] NoteHNO ID: [id number] Author: Dina Roger Service: Orthopaedic Surgery Author Type: Physician Type: Progress Notes Filed: 04/02/2020 7:27 AM Note Text: ORTHOPAEDIC SURGERY PROGRESS NOTE PATIENT NAME: Mahesh Baxter A/P: 54 year old yo female POD1 s/p R TKA - Activity: WBAT - Wound: Aquacel Dressing to be removed POD7 - Antibiotics: Completing 24 hours of perioperative then DC - Imaging: appropriate position without complication - Pain - PO and IV breakthrough. Block removed due to nerve irritation - DVT prophylaxis - SCDs, ASA 81 BID - HLIV when tolerating sufficient PO * Discharge planning - Await PT recs --> consults today - Case Management --> assessment today - Dispo: anticipate DC to home on POD 1 or 2 S: Doing well, pain well controlled, denies n/v/cp/sob VITALS: 04/01/20 1617 04/01/20 2016 04/01/20 2354 04/02/20 0310 BP: 122/80 155/68 143/65 141/65 Pulse: 78 91 73 93 Resp: 18 17 16 16 Temp: 36.8 ?C (98.2 ?F) 36.9 ?C (98.4 ?F) 36.9 ?C (98.4 ?F) TempSrc: Oral Oral Axillary Oral SpO2: 100% 98% 97% 96% Weight: 73 kg (160 lb 15 oz) Height: 160 cm (5' 2.99 ) Intake/Output Summary (Last 24 hours) at 04/02/2020 0726 Last data filed at 04/02/2020 0522 Gross per 24 hour Intake 3385 ml Output 1450 ml Net 1935 ml Physical Exam: * Gen: awake, alert, converses appropriately, NAD * Resp: Unlabored on RA, no wheeze * RLE: - dressing c,d,i - 5/5 PF, DF, EHL - SILT L4-S1 - 2+ PT pulse, toes wwp Labs: CBC:No results for input(s): WBC, HB, HCT, PLT, MCV, RDWCV, NEUTP, ABSNEUT, LYMPHP, MONOP, EODINP in the last 168 hours. COAG: No results for input(s): APTT, INR in the last 168 hours. BMP: No results for input(s): GLUC, NA, K, CHLOR, CO2, ANION, BUN, CREAT in the last 168 hours. CHEM: No results for input(s): ALB, TPROT, CA, MG in the last 168 hours. URINALYSIS:No results for input(s): PH, SPGR, UGLUC, UBILI, UKET, UHB, UPROT, UROBIL, UWBC, SSA in the last 168 hours. Invalid input(s): RICHARD Roger MDAthol [id number] NoteHNO ID: [id number] Author: Rock Byrnes Service: ? Author Type: Anesthesiologist Type: Anesthesia Procedure Notes Filed: 04/01/2020 4:03 PM Note Text: ANESTHESIOLOGY PROCEDURE NOTE Peripheral Nerve Block General Information Procedure Start Time/Medication Administration: 04/01/2020 11:31 AM Procedure End time: 04/01/2020 11:41 AM Patient location during procedure: pre-op Timeout Performed Pre-procedure: timeout performed Consent Obtained: Yes Patient 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 Reason for block: post-op pain management/at surgeon's request Staffing Anesthesiologist: Rock Byrnes Performed by: anesthesiologist Preparation Sterility Preparation: hand hygiene performed prior to procedure, surgical cap used, mask used, sterile drape used during line insertion, skin prep agent completely dried prior to procedure Site Prep: Chloraprep Pre-Procedure Neuro Exam Location: RLE Sensory: intact Motor: intact Procedure Details Patient Position: supine Monitoring: NIBP, EKG and Pulse OX Block Type Lower Extremity: distal femoral (adductor canal) Laterality: right Injection Technique: catheter Ultrasound Guided: Yes Image in Chart: yes Local Infiltration: Yes Needle Needle Type: Tuohy Needle Gauge: 18 G Needle Length: 10 cm Needle Localization: anatomical landmarks Needle Insertion Depth: 6 cm Catheter Type: closed end Catheter Size: 20 G Catheter at Skin Depth: 11 cm Assessment Injection assessment: negative aspiration, no paresthesia on injection and incremental injection Paresthesia: none Post-Procedure Neuro Exam Expected Regional Anesthesia: Yes SIGNATURE: Rock Byrnes MD PATIENT NAME: Mahesh Baxter DATE: April 01, 2020 TIME: 4:02 PM CSN: [id number] NoteHNO ID: [id number] Author: Santiago More Service: ? Author Type: Nurse Client Service Coordinator Type: Anesthesia Procedure Notes Filed: 04/01/2020 12:37 PM Note Text: ANESTHESIOLOGY PROCEDURE NOTE Spinal Block General Information Procedure Start Time/Medication Administration: 04/01/2020 12:09 PM Patient location during procedure: OR Timeout Performed Pre-procedure: timeout performed Consent Obtained: Yes Patient 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, care steam and power superintendent and patient Reason for Block: primary surgical anesthetic Staffing Anesthesiologist: Jackson Mckee FINGERPRINTER: Santiago More Performed by: ANDRES Preparation Sterility Preparation: hand hygiene performed prior to procedure, gown used during line insertion, surgical cap used, mask used, sterile drape used during line insertion, skin prep agent completely dried prior to procedure Site Prep: Betadine Procedure Details Patient Position: sitting Ultrasound Guided: No Monitoring: Pulse Ox and NIBP Approach: Midline Location: L3-4 Injection Technique: single-shot Needle Needle Type: pencil-tip Needle Gauge: 27 G Assessment Events: tolerated well Medications Administered Bupivacaine-dextrose 0.75 % (7.5 mg/mL) injection (SENSORCAINE MPF SPINAL), 2 mL SIGNATURE: Santiago More APRN.CRNA PATIENT NAME: Mahesh Baxter DATE: April 01, 2020 TIME: 12:35 PM CSN: [id number] NoteHNO ID: [id number] Author: Dina Roger Service: ? Author Type: Physician Type: Progress Notes Filed: 02/27/2020 3:23 PM Note Text: NEW ENCOUNTER Chief Complaint: right Knee pain History: Patient is a 54 year old female; she denies an acute injury event. Date of injury/duration of pain: 12/16/2019 Location: medial and anterior knee Intensity: Moderate Quality: Aching Job Related: No Symptoms with the following activities: Increased activity The following things help the symptoms: Rest reports catching denies locking reports buckling denies giving way reports pain with twist / pivot Social History: Tobacco Use: Never Work: [employer] Exercise: walking Patient History PAST MEDICAL HISTORY Diagnosis Date - Other affections of shoulder region, not elsewhere classified 08/09/2012 PAST SURGICAL HISTORY Procedure Laterality Date - PAST SURGICAL HISTORY OF 2003 total hysterectomy - PAST SURGICAL HISTORY OF 1992,1993 csections X2 etodolac (LODINE) 400 mg tablet Take 1 tablet by mouth twice daily. Fluticasone Propionate 250 mcg/actuation DsDv Inhale as instructed as needed. ESTROGEN,KAVITA/ME-TESTOSTERONE (ESTRATEST ORAL) Take by mouth once daily. Allergies: ALLERGIES Allergen Reactions - Penicillins REVIEW OF SYSTEMS: Patient reports no change in past medical AND surgical history, medications, allergies, social history, family history and review of systems Allergies, medications, past surgical history and past medical history were reviewed per this encounter. Physical Examination: Region: Knee General Appearance: Appears healthy, well-nourished, no deformities. Neck/Spine/Station/Gait: N/A Normal gait Left Exam: AROM: 0-135 PROM: Normal Point Tenderness location: none Swelling/Effusion: none Stability: normal Muscle Strength: normal Sensation:normal Reflexes:normal Skin: normal Pulses: normal Special Tests: None Right Exam: AROM: 0-120 PROM: Same as active Point Tenderness location:medial jointline and patellofemoral Swelling/Effusion: moderate Stability: normal Muscle Strength: normal Sensation:normal Reflexes:normal Skin: normal Pulses: normal Special Tests: None Images have been personally reviewed by me and discussed with patient. Abnormal, mild tricompartmental arthritis MRI shows medial and lateral femoral condyles have areas of high-grade cartilage loss. Patellofemoral and trochlea with high-grade cartilage loss. Degenerative tearing of the meniscus Assessment and Plan: Right knee osteoarthritis Reviewed options for treatment. She has had corticosteroid injection. 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 None of these seem to be adequately treating her based on her activities of daily living. Interested in total knee replacement. I discussed the risk, benefits, postoperative rehabilitation and convalescence associated with knee replacement. She is consented to proceed. She did have a steroid injection in December so we will be targeting a date and mid-to-late March to be 3 months outside of the steroid injection. [employer] triathlon system (cementless should be on standby) -typically CS, PS should be available Z retractors Seth retractor (PCL protector) Position: Supine, ?tootsie roll? or ?pain roller? foot positioner for foot and toe position on operative side. Bump under operative hip. [place] foam pad nonoperative side. Closure: #1 Vicryl, 0 or 1 barbed running suture, 2-0 Vicryl, 3-0 monocryl, Glue, Steri's, Aquacel. (3-0 Nylon and NO glue or steri's for medically complex patients). Thigh high TEDs. PT HHC and outpatient per protocol Follow-up: 2 week, 6 week, 3 months. (XR at 6 week follow-up). 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 Florencio teresa [facility] 03/2020 Surgical History left knee replacement Dr[facility] 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 Florencio teresa at [facility] 03/2020 Surgical History left knee replacement Dr[facility] Natalia ruelas [facility] 11/2020 Hospitalization History SEE ABOVE [facility] Other Evaluation [facility]No [facility] Other Evaluation noteNo assessment information available [facility] Work Phone: Summary Purpose Family History No Family History Records FoundNo Family History Records FoundNo Family History Records FoundNo Family History Records FoundNo Family History Records FoundNo Family History Records FoundNo Family History Records Found Advance Directives Advance Directive Response Recorded Date/ Time Advance Directives No March 23, 2017 5:56pm Advance Directive Response Recorded Date/ Time Advance Directives No March 23, 2017 6:56pm Chief Complaint and Reason for Visit Chief Complaint Knee Pain Chief Complaint Shortness of Breath, chest discomfort R06.02 R05.3 R05.3 Assessments No Assessments Information Available Additional Source Comments INFORMATION SOURCE (unrecogn ized section and content) DATE CREATED AUTHOR 02/15/2020 [facility] DATE CREATED AUTHOR AUTHOR'S ORGANIZ ATION 09/05/2020 [facility] DATE CREATED AUTHOR AUTHOR'S ORGANIZ ATION 12/15/2020 [facility] DATE CREATED AUTHOR AUTHOR'S ORGANIZ ATION 04/01/2021 [facility] dical Specialist DATE CREATED AUTHOR AUTHOR'S ORGANIZ ATION 06/02/2021 [facility] DATE CREATED AUTHOR AUTHOR'S ORGANIZ ATION 03/09/2022 [facility] DATE CREATED AUTHOR AUTHOR'S ORGANIZ ATION 04/16/2022 [facility] REASON FOR VISIT (unrecogniz ed section and content) wellnessClinical Acute Medic ineClinical Acute IllnessDiagnostic review- printedadipex1 month Follow up adipexfollow upClinicalCONCESTIONClinicalClinicalrsv,covid,flu- BLACK JEEPallergy shotclinicalpersisting cough- chest xray at [place] Care Teams (unrecognized sec tion and content) Team Status: Inactive Member Role Status Dates Randall Kerr , DO Primary Care Provider, Attending Provi onur Active Team Status: Inactive Member Role Status Dates Randall Kerr , DO Primary Care Provider, Attending Provi onur Active Johnny Vera MD Referring Provider Active Team Status: Active Member Role Status Dates Randall Kerr , DO Primary Care Provider Active Goals (unrecognized section and content) Goals may be documented in a n alternate section FOR RECORDS PERTAINING TO PATIENTS WHO ARE OR HAVE BEEN ENROLLED IN A CHEMICAL DEPENDENCY/SUBSTANCEABUSE PROGRAM, SOME INFORMATION MAY BE OMITTED. This clinical summary was aggregated from multiple sources. Caution should be exercised in using it in the provision of clinical care. This summary normalizes information from multiple sources, and as a consequence, information in this document may materially change the coding, format and clinical context of patient data. In addition, data may be omitted in some cases. CLINICAL DECISIONS SHOULD BE BASED ON THE PRIMARY CLINICAL RECORDS. [facility] [employer] [facility]. provides no warranty or guarantee of the accuracy or completeness of information in this document.
== END 2023-04-20 14:03 | disposition home or self-care (01) ==
LOC: RAD 14:02
PROVIDERS: Visit Provider Podiatrist Foot & Ankle Surgery
DX: M79.672 Pain in left foot (principal); M79.671 Pain in right foot; M20.12 Hallux valgus (acquired), left foot
CPT/HCPCS: 73630